=== PATIENT | male | born 1990 | race African-American/Black ===

== ENCOUNTER 2016-02-17 15:31 | Inpatient (IN) | payer OTHER ==
[~2016-02-17] VITALS: Ht 182.9 cm; Wt 84.3 kg
[2016-02-17] VITALS (7 sets, daily range): BP systolic 88–125; BP diastolic 53–82; PULSE 84–118; RESP 20–22; TEMP 97.6–98; O2SAT 92–100
[~2016-02-17 15:31] MED LIST: SODIUM BICARBONATE 8.4% INJ 50 MEQ/50 ML SYR IV ONE
[2016-02-17] MEDS ORDERED: LIDOCAINE 1%/EPINEPHrine 1:100,000 SOLN 20 ML VIAL ONE (15:39)
[2016-02-17] MEDS ORDERED: DIPHTH/TETANUS/ACEL PERTUSSIS (BOOSTER) 0.5 ML VIAL/PFS IM ONE (15:39)
[2016-02-17] MEDS ORDERED: ceFAZolin 2 GM PREMIX 50 ML ONE (15:39)
[2016-02-17] MEDS ORDERED: LACTATED RINGER'S 1000 ML INJ 1,000 ML IV SCH (15:58)
[2016-02-17 16:00] LABS: AUTOMATED NEUTROPHIL # 16.5 TH/MM3 (1.8-7.7); BASOPHIL % 0.1 % (0.0-2.0); EOSINOPHIL # 0.1 TH/MM3 (0-0.4); EOSINOPHIL % 0.6 % (0.0-4.0); HEMATOCRIT 36.2 % (39.0-51.0); HEMO FLAGS DIFF FINAL; LYMPH % 13.1 % (9.0-44.0); LYMPHOCYTE # 2.7 TH/MM3 (1.0-4.8); MEAN CELL VOLUME 87.6 FL (80.0-100.0); MEAN CORPUSCULAR HEMOGLOBIN 30.1 PG (27.0-34.0); MEAN CORPUSCULAR HGB CONC 34.4 % (32.0-36.0); MONO % 5.7 % (0.0-8.0); NEUT % 80.5 % (16.0-70.0); PLATELET COUNT 214 TH/MM3 (150-450); RED BLOOD COUNT 4.13 MIL/MM3 (4.50-5.90); RED CELL DISTRIBUTION WIDTH 13.3 % (11.6-17.2); WHITE BLOOD COUNT 20.5 TH/MM3 (4.0-11.0)
[2016-02-17] MEDS: PANTOPRAZOLE SODIUM 40 MG VIAL IV SCH (16:00)
[2016-02-17] MEDS ORDERED: NALOXONE HCL 0.4 MG/ML AMP IV PRN (16:00)
[2016-02-17] MEDS ORDERED: Post-op Orders (for Pharmacy) MISC XX ONE (16:00)
[2016-02-17] MEDS ORDERED: SODIUM CHLORIDE 0.9% FLUSH 5 ML FLUSH IVF PRN (16:00)
[2016-02-17 16:01] LABS: I-STAT POTASSIUM 3.8 MMOL/L (3.5-4.9)
[2016-02-17 16:10] LABS: APTT (PATIENT) 22.9 SEC (24.3-30.1); INTERNATIONAL NORMALIZED RATIO 1.1 RATIO
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
[2016-02-17] MEDS ORDERED: IOHEXOL 300 MG/ML 50 ML BTL (for RAD DIAG) IV ONE ×2 (16:25→16:47)
[2016-02-17] MEDS ORDERED: LORazepam 2 MG/ML VIAL ONE (16:47)
[2016-02-17] MEDS ORDERED: ETOMIDATE 20 MG/10 ML VIAL ONE (16:49)
[2016-02-17] MEDS ORDERED: MIDAZOLAM HCL 5 MG/ML VIAL (1 ML) ONE ×2 (16:50)
[2016-02-17] MEDS ORDERED: ROCURONIUM INJ 50 MG/5 ML VIAL ONE ×2 (16:51→19:08)
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
[2016-02-17] MEDS ORDERED: PROPOFOL 1000 MG/100 ML INJ 100 ML ONE (17:03)
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
--- NOTE | 2016-02-17 17:09 | RADRPT ---
EXAM DATE/TIME: 02/17/2016 15:26 [facility] COMPARISON: CHEST SINGLE AP, February 17, 2016, 15:26. INDICATIONS : Left sided chest tube placement. MEDICAL HISTORY : None. SURGICAL HISTORY : None. ENCOUNTER: Subsequent ACUITY: 1 day PAIN SCORE: Non-responsive. LOCATION: Left chest FINDINGS: A single portable frontal view of the chest shows a left thoracostomy tube with tip in the medial lef t apex. No pneumothorax or effusion. A small amount of subcutaneous air overlies the left lateral nely st. Right lung is clear. Heart normal size. Right clavicular fracture are again seen. CONCLUSION: Left thoracostomy tube without pneumothorax. Right clavicular fracture. Vincent He Jr., MD on February 17, 2016 at 17:06 Board Certified Radiologist. This report was verified electronically.
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
[2016-02-17] MEDS ORDERED: NOREPINEPHRINE-DEXTROSE DRIP 250 ML IV SCH (17:15)
[2016-02-17] MEDS ORDERED: PHENYLEPHRINE INJ 80 MG in DEXTROSE 5% IN WATE 500 ML INJ 492 ML IV SCH ×2 (17:15)
[2016-02-17] MEDS ORDERED: TERBUTALINE INJ 1 MG/ML AMP SQ PRN ×2 (17:15)
--- NOTE | 2016-02-17 17:17 | PD.PROCEDR ---
Procedure Note Procedure After the risks and benefits were discussed the following procedure was performed: INTUBATION: The patient was put in optimal position for the procedure. Rapid sequence intubation was initiated by me using 20 milligrams of etomidate IV and 10 milligrams of Versed IV and Rocuronium 50 mg IV. GlideScope used to avoid neck anterior flexion, #4 GlideScope blade with Grade 1 view, single attempt. The patient was intubated with a 8 cuffed endotracheal tube. Tube placement was confirmed by visualization of the tube and balloon passing through the cords , capnometry and subsequent chest x-ray. Breath sounds were equal and well aerated bilaterally postintubation. No breath sounds over stomach. Patient tolerated procedure well. Sean Christiansen MD Feb 17, 2016 17:16
--- NOTE | 2016-02-17 17:20 | PD.PROCEDR ---
Procedure Note Procedure R radial arterial line placement The patient was properly positioned. The area was exposed and cleansed with ChloraPrep, times two. Sterile drape was used to cover the area, with the site exposed, under sterile conditions including cap, face mask, and sterile gloves. On single attempt, the Angiocath was inserted into the radial artery and arterial flash was obtained. The catheter was advanced to position and needle was removed. Good arterial waveforms confirmed placement. The arterial line line was secured with dressing. COMPLICATIONS: No apparent complications ESTIMATED BLOOD LOSS: Less than 1 cc. Sean Christiansen MD Feb 17, 2016 17:20
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
[2016-02-17] MEDS ORDERED: POTASSIUM CL 40 MEQ/30 ML LIQ UDC PO/TUBE PRN ×2 (17:45)
[2016-02-17] MEDS ORDERED: MAGNESIUM SULFATE INJ 4 GM in SODIUM CHLORIDE 0.9% INJ 92 ML IV PRN (17:45)
[2016-02-17] MEDS ORDERED: SODIUM PHOSPHATE INJ 30 MMOL in SODIUM CHLOR 0.9% 250 ML INJ 240 ML IV PRN (17:45)
[2016-02-17] MEDS ORDERED: POTASSIUM CHLOR 40 MEQ PREMIX 100 ML IV PRN ×2 (17:45)
[2016-02-17] MEDS ORDERED: POTASSIUM PHOSPHATE MONOBASIC 500 MG TAB PO PRN (17:45)
[2016-02-17] MEDS ORDERED: MAGNESIUM SULFATE INJ 2 GM in SODIUM CHLORIDE 0.9% INJ 96 ML IV PRN (17:45)
[2016-02-17] MEDS ORDERED: POTASSIUM PHOSPHATE MONOBASIC 500 MG TAB PO/TUBE PRN (17:45)
[2016-02-17] MEDS ORDERED: POTASSIUM CHLOR 20 MEQ PREMIX 100 ML IV PRN ×2 (17:45)
[2016-02-17] MEDS ORDERED: MAGNESIUM OXIDE 400 MG TAB PO PRN (17:45)
[2016-02-17] MEDS ORDERED: POTASSIUM PHOSPHATE INJ 30 MMOL in SODIUM CHLOR 0.9% 250 ML INJ 250 ML IV PRN (17:45)
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
[2016-02-17] MEDS ORDERED: NOREPINEPHRINE 4 MG/4 ML AMP ONE (17:55)
[2016-02-17] MEDS ORDERED: PHENYLEPHRINE HCL 10 MG/ML VIAL ONE (18:15)
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
[2016-02-17 18:24] LABS: BLOOD GAS BASE EXCESS -4.9 mmol/L (-2-2); BLOOD GAS CARBOXYHEMOGLOBIN 0.8 % (0-4); BLOOD GAS HCO3 21 mmol/L (22-26); BLOOD GAS METHEMOGLOBIN 1.1 % (0-2); BLOOD GAS O2 HGB SATURATION 89 % (90-100); BLOOD GAS OXYGEN CONTENT 13.9 Vol % (12.0-20.0); BLOOD GAS PCO2 49 mmHg (38-42); BLOOD GAS PO2 72 mmHg (61-120); BLOOD GAS TOTAL HGB 11.1 G/DL (12.0-16.0); CRITICAL VALUE YES; OXYGEN DEVICE VENT; TEMP CORR TO 98.6
[2016-02-17 18:25] LABS: DRAW SITE ALINE; FIO2 80 %; VENT SETTINGS PRVC/22/600/10P/1IT
[2016-02-17] MEDS ORDERED: PIPERACIL-TAZO 4.5 GM PREMIX 100 ML IV SCH (18:45)
[2016-02-17 19:40] LABS: AUTOMATED NEUTROPHIL # 16.9 TH/MM3 (1.8-7.7); BASOPHIL % 0.2 % (0.0-2.0); HEMO FLAGS DIFF FINAL; LYMPH % 8.9 % (9.0-44.0); LYMPHOCYTE # 1.9 TH/MM3 (1.0-4.8); MEAN CELL VOLUME 87.8 FL (80.0-100.0); MEAN CORPUSCULAR HEMOGLOBIN 30.3 PG (27.0-34.0); MEAN CORPUSCULAR HGB CONC 34.5 % (32.0-36.0); MONO % 10.2 % (0.0-8.0); NEUT % 80.7 % (16.0-70.0); PLATELET COUNT 192 TH/MM3 (150-450); RED BLOOD COUNT 3.65 MIL/MM3 (4.50-5.90); RED CELL DISTRIBUTION WIDTH 13.2 % (11.6-17.2); WHITE BLOOD COUNT 20.9 TH/MM3 (4.0-11.0)
[2016-02-17 19:50] LABS: INTERNATIONAL NORMALIZED RATIO 1.1 RATIO; PROTHROMBIN TIME - PATIENT 12.2 SEC (9.8-11.6)
[2016-02-17 20:11] LABS: BICARBONATE 25.5 MEQ/L (21.0-32.0); CALCIUM-PROTEIN CORRECTED 8.2 MG/DL (8.5-10.1); MAGNESIUM 1.5 MG/DL (1.5-2.5); POTASSIUM 4.2 MEQ/L (3.5-5.1); TOTAL BILIRUBIN ADULT 1.3 MG/DL (0.2-1.0)
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
[2016-02-17] MEDS: PHENYLEPHRINE INJ 80 MG in SODIUM CHLORID 0.9% 500 ML INJ 492 ML IV SCH ×2 (20:46→23:38)
[2016-02-17] MEDS: NOREPINEPHRINE INJ 4 MG in SODIUM CHLOR 0.9% 250 ML INJ 246 ML IV SCH ×2 (20:47→23:52)
[2016-02-17] MEDS: SODIUM CHLORIDE 0.9% FLUSH 5 ML FLUSH IVF SCH (21:00)
[2016-02-17 21:08] LABS: BLOOD GAS BASE EXCESS -5.9 mmol/L (-2-2); BLOOD GAS HCO3 19 mmol/L (22-26); BLOOD GAS METHEMOGLOBIN 1.1 % (0-2); BLOOD GAS O2 HGB SATURATION 92 % (90-100); BLOOD GAS OXYGEN CONTENT 14.1 Vol % (12.0-20.0); BLOOD GAS PCO2 34 mmHg (38-42); BLOOD GAS PO2 76 mmHg (61-120); BLOOD GAS TOTAL HGB 10.8 G/DL (12.0-16.0); CRITICAL VALUE NO; OXYGEN DEVICE VENTILATOR; TEMP CORR TO 98.6
[2016-02-17 21:09] LABS: DRAW SITE ART LINE; FIO2 100 %; STAT YES; VENT SETTINGS PC/AC
[2016-02-17] MEDS: PROPOFOL 1000 MG/100 ML INJ 100 ML IV SCH (22:03)
[2016-02-17] MEDS: CHLORHEXIDINE 0.12% (ORAL KIT) 15 ML CUP MT SCH (22:03)
[2016-02-17] MEDS: RESP: ALBUTEROL 2.5 MG/IPRATROPIUM 0.5 MG NEB (SCH) NEB (23:02)
[2016-02-17] MEDS: PIPERACIL-TAZO 4.5 GM PREMIX 100 ML IV SCH (23:58)
[2016-02-18] VITALS (19 sets, daily range): BP systolic 112–145; BP diastolic 67–85; PULSE 87–107; RESP 18–22; TEMP 97.9–99.6; O2SAT 98–100
[2016-02-18 00:36] LABS: BLOOD GAS BASE EXCESS -9.1 mmol/L (-2-2); BLOOD GAS CARBOXYHEMOGLOBIN 0.9 % (0-4); BLOOD GAS HCO3 14 mmol/L (22-26); BLOOD GAS METHEMOGLOBIN 1.1 % (0-2); BLOOD GAS O2 HGB SATURATION 98 % (90-100); BLOOD GAS OXYGEN CONTENT 15.9 Vol % (12.0-20.0); BLOOD GAS PCO2 18 mmHg (38-42); BLOOD GAS PO2 408 mmHg (61-120); BLOOD GAS TOTAL HGB 10.8 G/DL (12.0-16.0); TEMP CORR TO 98.6
[2016-02-18 00:37] LABS: CRITICAL VALUE YES; DRAW SITE ALINE; FIO2 100 %; OXYGEN DEVICE VENTILATOR; ULNAR PULSE PRESENT
[2016-02-18 00:38] LABS: STAT NO
[2016-02-18] MEDS: PROPOFOL 1000 MG/100 ML INJ 100 ML IV SCH ×7 (01:06→17:46)
[2016-02-18 02:10] LABS: BLOOD GAS BASE EXCESS -10.1 mmol/L (-2-2); BLOOD GAS CARBOXYHEMOGLOBIN 0.8 % (0-4); BLOOD GAS HCO3 14 mmol/L (22-26); BLOOD GAS METHEMOGLOBIN 1.1 % (0-2); BLOOD GAS O2 HGB SATURATION 98 % (90-100); BLOOD GAS OXYGEN CONTENT 14.7 Vol % (12.0-20.0); BLOOD GAS PCO2 26 mmHg (38-42); BLOOD GAS PO2 310 mmHg (61-120); BLOOD GAS TOTAL HGB 10.1 G/DL (12.0-16.0); TEMP CORR TO 98.6
[2016-02-18 02:11] LABS: CRITICAL VALUE YES; DRAW SITE ART LINE; FIO2 60 %; OXYGEN DEVICE VENTILATOR; STAT NO; VENT SETTINGS PC/AC
[2016-02-18] MEDS ORDERED: SODIUM CHLORID 0.9% 500 ML INJ 500 ML IV ONE (03:00)
[2016-02-18] MEDS: SODIUM CHLOR 0.9% 1000 ML INJ 1,000 ML IV SCH ×4 (03:00→23:14)
[2016-02-18] MEDS: RESP: ALBUTEROL 2.5 MG/IPRATROPIUM 0.5 MG NEB (SCH) NEB ×4 (03:57→20:50)
[2016-02-18] MEDS: PIPERACIL-TAZO 4.5 GM PREMIX 100 ML IV SCH (06:07)
[2016-02-18 06:19] LABS: AUTOMATED NEUTROPHIL # 14.1 TH/MM3 (1.8-7.7); BASOPHIL % 0.2 % (0.0-2.0); EOSINOPHIL % 0.1 % (0.0-4.0); HEMATOCRIT 30.8 % (39.0-51.0); LYMPH % 13.6 % (9.0-44.0); LYMPHOCYTE # 2.5 TH/MM3 (1.0-4.8); MEAN CELL VOLUME 86.7 FL (80.0-100.0); MEAN CORPUSCULAR HGB CONC 34.5 % (32.0-36.0); MONO % 8.7 % (0.0-8.0); NEUT % 77.4 % (16.0-70.0); PLATELET COUNT 191 TH/MM3 (150-450); RED BLOOD COUNT 3.55 MIL/MM3 (4.50-5.90); RED CELL DISTRIBUTION WIDTH 13.5 % (11.6-17.2); WHITE BLOOD COUNT 18.3 TH/MM3 (4.0-11.0)
[2016-02-18 06:25] LABS: HEMO FLAGS AUTO DIFF
[2016-02-18] MEDS ORDERED: SERO25TA PO (07:19)
[2016-02-18 07:41] LABS: BANDS 25 % (0-6); EOSINOPHILS 1 % (0-4); NEUTROPHIL # MANUAL DIFF 15.4 TH/MM3 (1.8-7.7); PLATELET ESTIMATE SMEAR NORMAL (NORMAL); PLATELET MORPHOLOGY NORMAL (NORMAL); POLYS (SEG NEUTROPHILS) 59 % (16-70); SCAN/DIFF FINAL DIFF MANUAL; WBC DIFF SAMPLE 100
[2016-02-18 07:49] LABS: BICARBONATE 19.4 MEQ/L (21.0-32.0); CALCIUM-PROTEIN CORRECTED 7.7 MG/DL (8.5-10.1); TOTAL BILIRUBIN ADULT 1.4 MG/DL (0.2-1.0)
[2016-02-18] MEDS ORDERED: SODIUM BICARBONATE 8.4% INJ 50 MEQ/50 ML SYR IV PUSH ONE (08:45)
[2016-02-18] MEDS: NOREPINEPHRINE INJ 4 MG in SODIUM CHLOR 0.9% 250 ML INJ 246 ML IV SCH ×3 (09:06→20:21)
[2016-02-18] MEDS: MAGNESIUM HYDROXIDE SUSP 30 ML CUP PO SCH (09:07)
[2016-02-18] MEDS: DOCUSATE SODIUM 100 MG CAP PO SCH ×2 (09:07→20:21)
[2016-02-18] MEDS: CHLORHEXIDINE 0.12% (ORAL KIT) 15 ML CUP MT SCH ×2 (09:11→20:22)
[2016-02-18] MEDS: SODIUM CHLORIDE 0.9% FLUSH 5 ML FLUSH IVF SCH ×2 (09:11→20:22)
[2016-02-18] MEDS ORDERED: INSULIN HUMAN REGULAR 1,000 UNITS/10 ML VIAL IVP ONE (11:00)
[2016-02-18] MEDS ORDERED: DEXTROSE 50% IN WATER 50 ML SYRINGE IV ONE (11:00)
[2016-02-18] MEDS: PIPERACIL-TAZO 2.25 GM PREMIX 50 ML IV SCH ×3 (11:48→23:11)
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
[2016-02-18] MEDS: PANTOPRAZOLE SODIUM 40 MG VIAL IV SCH (15:04)
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
[2016-02-18 16:25] LABS: BLOOD GAS BASE EXCESS -9.5 mmol/L (-2-2); BLOOD GAS CARBOXYHEMOGLOBIN 0.8 % (0-4); BLOOD GAS HCO3 16 mmol/L (22-26); BLOOD GAS METHEMOGLOBIN 1.1 % (0-2); BLOOD GAS O2 HGB SATURATION 95 % (90-100); BLOOD GAS OXYGEN CONTENT 13.2 Vol % (12.0-20.0); BLOOD GAS PCO2 39 mmHg (38-42); BLOOD GAS PO2 98 mmHg (61-120); BLOOD GAS TOTAL HGB 9.8 G/DL (12.0-16.0); TEMP CORR TO 98.6
[2016-02-18 16:26] LABS: CRITICAL VALUE YES; DRAW SITE ART LINE; FIO2 40 %; NUMBER OF ARTERIAL PUNCTURES 0; OXYGEN DEVICE VENTILATOR; STAT NO; ULNAR PULSE PRESENT; VENT SETTINGS PC/AC
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
[2016-02-18] MEDS: fentaNYL DRIP 250 ML IV SCH (17:46)
[2016-02-18] MEDS: PHENYLEPHRINE INJ 80 MG in SODIUM CHLORID 0.9% 500 ML INJ 492 ML IV SCH (19:29)
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
[2016-02-18 20:29] LABS: BICARBONATE 24.4 MEQ/L (21.0-32.0); POTASSIUM 4.5 MEQ/L (3.5-5.1)
[2016-02-18 20:42] LABS: CALCIUM-PROTEIN CORRECTED 8.2 MG/DL (8.5-10.1)
[2016-02-19] VITALS (17 sets, daily range): BP systolic 120–229; BP diastolic 51–66; PULSE 9–110; RESP 18; TEMP 97.8–98.6; O2SAT 94–100
[2016-02-19] MEDS: RESP: ALBUTEROL 2.5 MG/IPRATROPIUM 0.5 MG NEB (SCH) NEB ×4 (03:45→20:57)
--- NOTE | 2016-02-19 05:23 | RADRPT ---
EXAM DATE/TIME: 02/19/2016 04:15 [facility] COMPARISON: No previous studies available for comparison. INDICATIONS : Short of breath. MEDICAL HISTORY : None. SURGICAL HISTORY : Left side chest tube. ENCOUNTER: Subsequent ACUITY: 2 days PAIN SCORE: Non-responsive. LOCATION: Bilateral chest FINDINGS: Hazy opacities of both lungs, worsening on the right and improved on the left. At least small, bilate ral pleural effusions are likely. There is a left chest tube. I don't see a pneumothorax on either si de. Mild cardiomegaly is stable. Endotracheal tube tip is at the level of the thoracic inlet. Nasogastric tube has its tip in the dist al stomach. There is a left subclavian central venous catheter with tip in the superior vena cava. CONCLUSION: 1. Bibasilar consolidation slightly improved on the left, slightly worse on the right. Small bilatera l pleural effusions developing. 2. Lines and tubes unchanged, including left chest tube. No pneumothorax seen. Kuldip Sibley MD on February 19, 2016 at 5:20 Board Certified Radiologist. This report was verified electronically.
[2016-02-19 05:39] LABS: BLOOD GAS BASE EXCESS -3.8 mmol/L (-2-2); BLOOD GAS CARBOXYHEMOGLOBIN 1.2 % (0-4); BLOOD GAS HCO3 22 mmol/L (22-26); BLOOD GAS METHEMOGLOBIN 0.8 % (0-2); BLOOD GAS O2 HGB SATURATION 96 % (90-100); BLOOD GAS OXYGEN CONTENT 11.7 Vol % (12.0-20.0); BLOOD GAS PCO2 51 mmHg (38-42); BLOOD GAS PO2 115 mmHg (61-120); BLOOD GAS TOTAL HGB 8.5 G/DL (12.0-16.0); CRITICAL VALUE YES; OXYGEN DEVICE VENTILATOR; TEMP CORR TO 98.6
[2016-02-19 05:40] LABS: DRAW SITE ART LINE; FIO2 50 %; STAT NO; VENT SETTINGS PC/AC 18/IP18/
[2016-02-19] MEDS: PIPERACIL-TAZO 2.25 GM PREMIX 50 ML IV SCH ×4 (05:55→23:10)
[2016-02-19] MEDS: PROPOFOL 1000 MG/100 ML INJ 100 ML IV SCH ×4 (05:56→20:28)
[2016-02-19] MEDS: SODIUM CHLOR 0.9% 1000 ML INJ 1,000 ML IV SCH ×2 (05:56→14:45)
[2016-02-19 06:14] LABS: AUTOMATED NEUTROPHIL # 11.9 TH/MM3 (1.8-7.7); BASOPHIL % 0.2 % (0.0-2.0); EOSINOPHIL # 0.1 TH/MM3 (0-0.4); EOSINOPHIL % 0.6 % (0.0-4.0); HEMATOCRIT 24.8 % (39.0-51.0); HEMO FLAGS DIFF FINAL; LYMPHOCYTE # 0.9 TH/MM3 (1.0-4.8); MEAN CELL VOLUME 87.9 FL (80.0-100.0); MEAN CORPUSCULAR HEMOGLOBIN 30.5 PG (27.0-34.0); MEAN CORPUSCULAR HGB CONC 34.7 % (32.0-36.0); MONO % 11.4 % (0.0-8.0); NEUT % 81.8 % (16.0-70.0); PLATELET COUNT 161 TH/MM3 (150-450); RED BLOOD COUNT 2.82 MIL/MM3 (4.50-5.90); RED CELL DISTRIBUTION WIDTH 14.1 % (11.6-17.2); WHITE BLOOD COUNT 14.5 TH/MM3 (4.0-11.0)
[2016-02-19] MEDS: NOREPINEPHRINE INJ 4 MG in SODIUM CHLOR 0.9% 250 ML INJ 246 ML IV SCH ×3 (06:25→20:40)
[2016-02-19] MEDS: fentaNYL DRIP 250 ML IV SCH ×2 (06:33→17:03)
[2016-02-19 07:01] LABS: BICARBONATE 24.8 MEQ/L (21.0-32.0); CALCIUM-PROTEIN CORRECTED 8.3 MG/DL (8.5-10.1); MAGNESIUM 1.7 MG/DL (1.5-2.5); POTASSIUM 4.4 MEQ/L (3.5-5.1); TOTAL BILIRUBIN ADULT 1.2 MG/DL (0.2-1.0)
[2016-02-19 07:55] LABS: STAT YES
[2016-02-19 07:55] LABS: BLOOD GAS BASE EXCESS -4.6 mmol/L (-2-2); BLOOD GAS CARBOXYHEMOGLOBIN 1.3 % (0-4); BLOOD GAS HCO3 21 mmol/L (22-26); BLOOD GAS METHEMOGLOBIN 1.5 % (0-2); BLOOD GAS O2 HGB SATURATION 94 % (90-100); BLOOD GAS OXYGEN CONTENT 11.2 Vol % (12.0-20.0); BLOOD GAS PCO2 45 mmHg (38-42); BLOOD GAS PO2 98 mmHg (61-120); BLOOD GAS TOTAL HGB 8.3 G/DL (12.0-16.0); CRITICAL VALUE YES; OXYGEN DEVICE VENTILATOR; TEMP CORR TO 98.6
[2016-02-19 07:56] LABS: DRAW SITE ART LINE; FIO2 40 %; NUMBER OF ARTERIAL PUNCTURES 0; STAT NO; ULNAR PULSE PRESENT; VENT SETTINGS PC/AC
[2016-02-19] MEDS: CHLORHEXIDINE 0.12% (ORAL KIT) 15 ML CUP MT SCH ×2 (08:00→20:20)
[2016-02-19] MEDS: DOCUSATE SODIUM 100 MG CAP PO SCH ×2 (09:15→20:28)
[2016-02-19] MEDS: MAGNESIUM HYDROXIDE SUSP 30 ML CUP PO SCH (09:15)
[2016-02-19] MEDS: SODIUM CHLORIDE 0.9% FLUSH 5 ML FLUSH IVF SCH ×2 (09:16→20:55)
[2016-02-19] MEDS ORDERED: ATROPINE SULFATE 1 MG/10 ML SYRINGE ONE (09:46)
[2016-02-19] MEDS ORDERED: EPINEPHrine HCL (1:10,000) 1 MG/10 ML SYRINGE ONE (09:46)
[2016-02-19] MEDS ORDERED: LIDOCAINE HCL 2% 100 MG/5 ML SYRINGE ONE (09:46)
--- NOTE | 2016-02-19 10:06 | EC ---
Study Study Date:02/18/2016 STUDY CONCLUSIONS SUMMARY - Left ventricle: The cavity size was normal. Systolic function was normal. The estimated ejection fraction was in the range of 55% to 60%. Wall motion was normal; there were no regional wall motion abnormalities. - Aortic valve: Appears bicuspid aortic valve. Raphae of the right coronary cusp and non-coronary cusp. Valve area: 2.64cm^2(VTI). Valve area: 2.58cm^2 (Vmax). If LV function is below 40, please consider prescribing an ACEI or ARB or document rationale for non-use. PROCEDURE DATA STUDY STATUS: Elective. Procedure: Transthoracic echocardiography. Image quality was good. Scanning was performed from the parasternal, apical, and subcostal acoustic windows. Study completion: The patient tolerated the procedure well. Transthoracic echocardiography. M-mode, complete 2D, complete spectral Doppler, and color Doppler. Weight: Weight: 251.5lb. Patient status: Inpatient. CARDIAC ANATOMY LEFT VENTRICLE: The cavity size was normal. Systolic function was normal. The estimated ejection fraction was in the range of 55% to 60%. Wall motion was normal; there were no regional wall motion abnormalities. AORTIC VALVE: Appears bicuspid aortic valve. Raphae of the right coronary cusp and non-coronary cusp. Doppler: There was no stenosis. No significant regurgitation. Valve area: 2.64cm^2(VTI). Valve area: 2.58cm^2 (Vmax). Mean gradient: 4mm Hg (S). MITRAL VALVE: The valve appears to be grossly normal. Doppler: There was no evidence for stenosis. Trace regurgitation. Peak gradient: 2mm Hg (D). LEFT ATRIUM: The atrium was normal in size. RIGHT VENTRICLE: The cavity size was normal. Systolic function was normal. PULMONIC VALVE: The valve appears to be grossly normal. Doppler: There was no evidence for stenosis. Trace regurgitation. TRICUSPID VALVE: The valve appears to be grossly normal. Doppler: There was no evidence for stenosis. Trace regurgitation. PERICARDIUM: There was no pericardial effusion. Patient weight: 251.5lb _Ejection fraction:_ 65-75% _Fractional shortening:_ 32% up to 5Kg 5-11.5Kg 11.6-22.9Kg 23-45Kg 45-57Kg Aortic Root 7-13 <17 13-22 17-27 17-27 LA diam 6-13 <23 24-38 33-47 37-40 RVID 10-17 7-15 7-15 7-18 8-17 LVIDd 12-22 <32 24-38 33-47 37-40 LVPW 2-4 3-6 5-7 6-8 7-8 IVS 2-4 3-6 5-7 6-8 7-8 BASIC MEASUREMENTS ADULT NORMAL Left ventricle LV internal dimension, ED, chordal level, 46.8 mm 43-52 PLAX LV internal dimension, ES, chordal level, 31 mm 23-38 PLAX Fractional shortening, chordal level, PLAX 34 % >29 LV posterior wall thickness, ED 10.5 mm IVS/LVPW ratio, ED 1 <1.3 Ventricular septum Septal thickness, ED 10.5 mm Aortic valve Leaflet separation *29 mm 15-26 Aorta Root diameter, ED 32 mm Left atrium Anterior-posterior dimension 25 mm BASIC MEASUREMENTS ADULT NORMAL Aortic valve Leaflet separation *29 mm 15-26 DOPPLER MEASUREMENTS ADULT NORMAL Aortic valve Peak velocity, S 128 cm/s Mean velocity, S 92.7 cm/s VTI, S 21.1 cm Mean gradient, S 4 mm Hg Valve area, VTI 2.64 cm^2 Valve area, Vmax 2.58 cm^2 Mitral valve Peak E-wave velocity 78.5 cm/s Peak A-wave velocity 44.9 cm/s Peak gradient, D 2 mm Hg Peak E/A ratio 1.7 Tricuspid valve Regurgitant peak velocity 221 cm/s Peak RV-RA gradient, S 20 mm Hg Maximal regurgitant velocity 221 cm/s Pulmonic valve Peak velocity, S 65.2 cm/s LEGEND: Mean values are shown as u=mean value. Asterisk (*) may values outside specified normal range. Prepared and signed by Ernesto Frazier [id number]
[2016-02-19] MEDS ORDERED: IOHEXOL 350 MG/ML 10 ML VIAL (for RAD DIAG) IV ONE (10:28)
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
[2016-02-19] MEDS: MAGNESIUM SULFATE 1 GM PREMIX 100 ML IV SCH ×2 (11:07→11:08)
[2016-02-19 11:11] LABS: APTT (PATIENT) 36.6 SEC (24.3-30.1); INTERNATIONAL NORMALIZED RATIO 1.2 RATIO; PROTHROMBIN TIME - PATIENT 12.9 SEC (9.8-11.6)
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
[2016-02-19] MEDS: PANTOPRAZOLE SODIUM 40 MG VIAL IV SCH (14:45)
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
[2016-02-19] MEDS: PHENYLEPHRINE INJ 80 MG in SODIUM CHLORID 0.9% 500 ML INJ 492 ML IV SCH (20:41)
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
[2016-02-20] VITALS (19 sets, daily range): BP systolic 126–131; BP diastolic 56–66; PULSE 90–110; RESP 18; TEMP 97.8–98.7; O2SAT 91–100
[2016-02-20] MEDS: PROPOFOL 1000 MG/100 ML INJ 100 ML IV SCH ×4 (00:35→22:13)
[2016-02-20] MEDS: RESP: ALBUTEROL 2.5 MG/IPRATROPIUM 0.5 MG NEB (SCH) NEB ×4 (03:12→21:18)
[2016-02-20] MEDS: fentaNYL DRIP 250 ML IV SCH ×2 (03:49→22:13)
[2016-02-20] MEDS: SODIUM CHLOR 0.9% 1000 ML INJ 1,000 ML IV SCH ×2 (03:50→13:02)
[2016-02-20] MEDS: NOREPINEPHRINE INJ 4 MG in SODIUM CHLOR 0.9% 250 ML INJ 246 ML IV SCH (03:50)
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
[2016-02-20] MEDS: PIPERACIL-TAZO 2.25 GM PREMIX 50 ML IV SCH ×3 (06:00→17:30)
[2016-02-20 06:36] LABS: HEMATOCRIT 22.2 % (39.0-51.0); MEAN CELL VOLUME 87.1 FL (80.0-100.0); MEAN CORPUSCULAR HEMOGLOBIN 30.6 PG (27.0-34.0); MEAN CORPUSCULAR HGB CONC 35.1 % (32.0-36.0); PLATELET COUNT 161 TH/MM3 (150-450); RED BLOOD COUNT 2.55 MIL/MM3 (4.50-5.90); RED CELL DISTRIBUTION WIDTH 13.8 % (11.6-17.2); REVIEW FLAG FINAL; WHITE BLOOD COUNT 12.9 TH/MM3 (4.0-11.0)
[2016-02-20 06:36] LABS: BLOOD GAS CARBOXYHEMOGLOBIN 1.6 % (0-4); BLOOD GAS HCO3 24 mmol/L (22-26); BLOOD GAS METHEMOGLOBIN 0.9 % (0-2); BLOOD GAS O2 HGB SATURATION 94 % (90-100); BLOOD GAS OXYGEN CONTENT 10.5 Vol % (12.0-20.0); BLOOD GAS PCO2 44 mmHg (38-42); BLOOD GAS PO2 86 mmHg (61-120); BLOOD GAS TOTAL HGB 7.8 G/DL (12.0-16.0); TEMP CORR TO 98.6
[2016-02-20 06:37] LABS: CRITICAL VALUE NO; DRAW SITE ART LINE; FIO2 40 %; OXYGEN DEVICE VENTILATOR
[2016-02-20 06:38] LABS: STAT NO
[2016-02-20 07:00] LABS: BICARBONATE 26.3 MEQ/L (21.0-32.0); MAGNESIUM 2.4 MG/DL (1.5-2.5)
[2016-02-20] MEDS ORDERED: LACTULOSE SYRUP 20 GM/30 ML CUP PO ONE (07:45)
[2016-02-20] MEDS: MAGNESIUM HYDROXIDE SUSP 30 ML CUP PO SCH (08:42)
[2016-02-20] MEDS: SODIUM CHLORIDE 0.9% FLUSH 5 ML FLUSH IVF SCH ×2 (08:42→21:00)
[2016-02-20] MEDS: CHLORHEXIDINE 0.12% (ORAL KIT) 15 ML CUP MT SCH ×2 (08:42→20:00)
[2016-02-20] MEDS: DOCUSATE SODIUM 100 MG CAP PO SCH ×2 (08:42→22:13)
[2016-02-20] MEDS ORDERED: SODIUM CHLOR 0.9% 250 ML INJ 250 ML IV ONE (09:00)
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
[2016-02-20] MEDS ORDERED: HEPARIN SODIUM - SQ 10,000 UNITS/ML VIAL ONE ×2 (11:02→11:16)
[2016-02-20] MEDS ORDERED: THROMBIN (TOPICAL) 5,000 UNIT VIAL ONE (11:03)
[2016-02-20] MEDS: GELFOAM SIZE 100 ONE ×2 (11:03→15:17)
[2016-02-20] MEDS: GENTAMICIN SULFATE 80 MG/2 ML VIAL ONE ×2 (11:03→15:16)
[2016-02-20] MEDS ORDERED: ceFAZolin INJ 1,000 MG VIAL ONE (11:03)
[2016-02-20] MEDS: LIDOCAINE 1%/EPINEPHrine 1:100,000 SOLN 20 ML VIAL ONE ×2 (11:04→15:17)
[2016-02-20] MEDS ORDERED: PROPOFOL 200 MG/20 ML AMP IV ONE (12:00)
[2016-02-20] MEDS ORDERED: NORMOSOL R INJ 2,000 ML IV ONE (12:00)
[2016-02-20] MEDS ORDERED: LACTATED RINGER'S 1000 ML INJ 1,000 ML IV ONE (12:00)
[2016-02-20] MEDS ORDERED: SUGAMMADEX SODIUM 200 MG/2 ML VIAL IV PUSH ONE ×2 (12:00)
[2016-02-20] MEDS ORDERED: ONDANSETRON HCL 4 MG/2 ML VIAL IV PUSH ONE (12:00)
[2016-02-20] MEDS ORDERED: HYDROmorphone HCL PF 2 MG/ML VIAL ONE (12:10)
[2016-02-20] MEDS ORDERED: ACETAMINOPHEN 1000 MG/100 ML VIAL IV ONE (12:11)
[2016-02-20] MEDS ORDERED: fentaNYL CITRATE 250 MCG/5 ML AMP ONE ×2 (12:11→21:07)
[2016-02-20] MEDS ORDERED: ceFAZolin 2 GM PREMIX 50 ML ONE (14:55)
[2016-02-20] MEDS ORDERED: GENTAMICIN SULFATE 80 MG/2 ML VIAL ONE (15:03)
[2016-02-20 15:20] LABS: HEMATOCRIT 23.2 % (39.0-51.0); REVIEW FLAG FINAL
[2016-02-20] MEDS ORDERED: SUFentanil INJ 250 MCG/5 ML AMP ONE ×2 (15:28→19:23)
[2016-02-20] MEDS: PANTOPRAZOLE SODIUM 40 MG VIAL IV SCH (15:57)
[2016-02-20] MEDS ORDERED: LIDOCAINE 1%/EPINEPHrine 1:100,000 SOLN 20 ML VIAL ONE ×4 (16:31→18:53)
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
[2016-02-20 17:54] LABS: HEMATOCRIT 24.7 % (39.0-51.0)
[2016-02-20 17:58] LABS: REVIEW FLAG FINAL
--- NOTE | 2016-02-20 21:15 | RADRPT ---
EXAM DATE/TIME: 02/20/2016 15:12 [facility] COMPARISON: CT THORACIC SPINE W/O CONTRAST, February 17, 2016, 16:03. INDICATIONS : Thoracic spine T2-6 fusion. MEDICAL HISTORY : None. SURGICAL HISTORY : None. ENCOUNTER: Initial ACUITY: 1 day PAIN SCORE: Non-responsive. LOCATION: Thoracic spine T2-6 FINDINGS: Coned-down views of the upper and mid thoracic spine were obtained in the AP and lateral projection a nd demonstrate that the patient is status post multi-level fusion with bilateral pedicle screws and p osterior fixation rods. Pedicle screws appear located at the T2, T3, T5 and T6 levels. The known frac ture at T4 is not well visualized. CONCLUSION: Status post multilevel fusion. Zen Maldonado MD on February 20, 2016 at 21:11 Board Certified Radiologist. This report was verified electronically.
--- NOTE | 2016-02-20 22:11 | PD.OP ---
Operative Report Date of Surgery: Feb 20, 2016 Preoperative Diagnosis: (1) Multiple fractures of thoracic spine (2) Paraplegia at T4 level T3-4-5 fractures Spinal cord injury with paraplegia Postoperative Diagnosis: (1) Multiple fractures of thoracic spine (2) Paraplegia at T4 level T3-4-5 fractures Spinal cord injury with paraplegia Procedure: 1. T2-T6 posterior spinal instrumentation with percutaneous pedicle screw fixation (charla Chang and Viktoriya) 2. T2-6 posterior lateral fusion with local autograft bone (Dr. Chang) 3. Bilateral T3-4 decompressive laminectomy-microtechnique () Anesthesia: Gen. Surgeon: Larry Sadler M.D. Station Usher(s): Michelle Lr Operation and Findings: Findings: Fracture of T4 facet and pedicle without definite canal compromise. No epidural hematoma encountered at time of laminectomy. Procedure in detail The patient was brought into the operating room already intubated with a Palmer catheter, NI hose and sequential compression devices in place Gen. endotracheal anesthesia was induced. Appropriate time-out procedure was performed with all personnel present and in agreement Cervical collar was in place. Leads for intraoperative neuro monitoring were placed and a baseline study obtained With the undersigned maintaining control of the head and neck, the patient was log rolled into prone position on the concentric Ronnie table and all extremities appropriately padded. Upon initial positioning, there was noted to be diminished ventilation but good maintenance of oxygen saturation. The check of the endotracheal tube per anesthesia revealed a leak in the cuff which required turning the patient back into supine position for reintubation, after which he was repositioned prone. The C-arm was used to confirm proper positioning of the spine. The thoracic region was prepped and draped in a sterile fashion The proper spine levels for the procedure were determined using the AP and lateral C-arm imaging The incisions were made on each side lateral to the midline at approximately 4 cm lateral to the midline on each side, a distance determined by the preoperative imaging studies as well as intraoperative AP and lateral C-arm monitoring. At the T2, T3, T5, and T6 levels bilaterally and sequentially, the Jamshidi needles were placed through the pedicles into the vertebral body utilizing the AP lateral C-arm imaging . The Jamshidi needle placement was checked with intraoperative concentric C-arm imaging and felt to be satisfactory. At each level sequentially, the guidewires were placed through the Jamshidi cannula and the needle removed. The dilators were then used to protect adjacent tissue while the cannulated tap was utilized to prepare the pedicle screw opening. Following placement of the pedicle screws, the lateral lamina and facet and transverse process at the T2 through T6 level on each side was decorticated with the TPS drill with bone shavings left in place for graft for the posterior lateral fusion. The Spine Wave Sniper pedicle screws on the MIS extension towers were placed directly through the paraspinous muscle incisions on each side at each level and advanced using AP and lateral C-arm imaging for monitoring. The appropriate size Spine Wave MIS yuniel was placed along the bilateral T2-T6 pedicle screws on each side and secured with the locking caps and the torque wrench and antitorque device. The entire construct was assessed with AP and lateral C-arm imaging and felt to be satisfactory. The operative site was well irrigated with antibiotic irrigation. Next, the midline incision was made at the T3-4 level and carried sharply down to the spinous processes. The Mercado elevator was used for subperiosteal elevation of paraspinous musculature and fascia away from the lamina and spinous process of T3 and T4 on each side and a deep self-retaining retractor was placed. The lamina spinous process appeared relatively stable. The interspinous ligament was totally torn The TPS drill with the 5 mm bone bur was used to remove the inferior half of the bilateral T3 and superior half of the bilateral T4 lamina and a moderate amount of the medial facet on each side sufficiently gain access to the lateral recess without significant retraction of the thecal sac. The ligamentum flavum was partially torn. This was further removed along with the lamina and facet with the 3 mm Kerrison rongeur. There did not appear to be any significant compression of bone fragments on the thecal sac. No epidural hematoma was encountered. The long blunt nerve hook and [place] dissectors were used to carefully palpate ventral to the thecal sac and no significant disc herniation or fracture or other source of compression was encountered. No cerebrospinal fluid leakage was encountered. The spinal canal appeared well decompressed at the time of closure. The closure was performed with 0 Vicryl interrupted for the deep and superficial fascia with 3-0 Vicryl interrupted subcutaneous closure and denisha for the skin closure A dressing of sterile Mastisol, Steri-Strips, and Primapore was placed Patient was taken to the intensive surgical care unit in stable condition. All counts were correct at the end the case Estimated blood loss was 250 cc No specimen was sent to pathology Intraoperative neuro monitoring remained stable during the procedure I Larry Chang MD Feb 20, 2016 22:11
[2016-02-21] VITALS (25 sets, daily range): BP systolic 120–145; BP diastolic 48–69; PULSE 85–110; RESP 16–18; TEMP 97.7–100.1; O2SAT 84–98
[2016-02-21] MEDS: PIPERACIL-TAZO 2.25 GM PREMIX 50 ML IV SCH ×6 (01:10→23:07)
[2016-02-21] MEDS: PROPOFOL 1000 MG/100 ML INJ 100 ML IV SCH ×5 (01:37→20:11)
[2016-02-21] MEDS: RESP: ALBUTEROL 2.5 MG/IPRATROPIUM 0.5 MG NEB (SCH) NEB ×4 (03:02→20:39)
[2016-02-21 03:40] LABS: HEMATOCRIT 23.1 % (39.0-51.0); MEAN CELL VOLUME 86.6 FL (80.0-100.0); MEAN CORPUSCULAR HEMOGLOBIN 30.2 PG (27.0-34.0); MEAN CORPUSCULAR HGB CONC 34.8 % (32.0-36.0); PLATELET COUNT 165 TH/MM3 (150-450); RED BLOOD COUNT 2.67 MIL/MM3 (4.50-5.90); WHITE BLOOD COUNT 12.5 TH/MM3 (4.0-11.0)
[2016-02-21 03:41] LABS: REVIEW FLAG FINAL
[2016-02-21 03:53] LABS: BICARBONATE 28.9 MEQ/L (21.0-32.0); MAGNESIUM 2.6 MG/DL (1.5-2.5); POTASSIUM 3.7 MEQ/L (3.5-5.1)
[2016-02-21] MEDS: SODIUM CHLOR 0.9% 1000 ML INJ 1,000 ML IV SCH ×2 (05:12→16:40)
[2016-02-21 05:20] LABS: BLOOD GAS BASE EXCESS 1.7 mmol/L (-2-2); BLOOD GAS CARBOXYHEMOGLOBIN 1.8 % (0-4); BLOOD GAS HCO3 26 mmol/L (22-26); BLOOD GAS METHEMOGLOBIN 0.8 % (0-2); BLOOD GAS O2 HGB SATURATION 94 % (90-100); BLOOD GAS OXYGEN CONTENT 11.3 Vol % (12.0-20.0); BLOOD GAS PCO2 46 mmHg (38-42); BLOOD GAS PO2 80 mmHg (61-120); BLOOD GAS TOTAL HGB 8.5 G/DL (12.0-16.0); TEMP CORR TO 98.6
[2016-02-21 05:21] LABS: CRITICAL VALUE NO; DRAW SITE ALINE; FIO2 45 %; OXYGEN DEVICE VENTILATOR; STAT NO; ULNAR PULSE PRESENT; VENT SETTINGS PRVC16/600/0.9/+5
--- NOTE | 2016-02-21 06:26 | RADRPT ---
EXAM DATE/TIME: 02/21/2016 05:14 [facility] COMPARISON: CHEST SINGLE AP, February 20, 2016, 3:24. INDICATIONS : Follow-up trauma to chest MEDICAL HISTORY : None. SURGICAL HISTORY : None. ENCOUNTER: Subsequent ACUITY: 4 - 6 days PAIN SCORE: Non-responsive. LOCATION: Bilateral chest FINDINGS: Since a prior chest x-ray, patient has undergone fusion with posterior instrumentation of the upper t horacic spine. I don't see a pneumothorax. Basilar predominant consolidation and at least small bilateral pleural effusions are again noted, not significantly changed. Endotracheal tube tip is about 4 cm above the luis a. There is a nasogastric tube coursing into the s tomach. There is a left subclavian central venous catheter with tip in the superior vena cava. Left c hest tube remains in place. CONCLUSION: 1. No significant change bibasilar consolidation and small effusions. 2. Interim thoracic spine surgery. Left chest tube remains in place. No pneumothorax seen on either s tavares. Kuldip Sibley MD on February 21, 2016 at 6:21 Board Certified Radiologist. This report was verified electronically.
[2016-02-21] MEDS ORDERED: BISACODYL 10 MG SUPP RECTAL ONE (07:45)
[2016-02-21] MEDS: SODIUM CHLORIDE 0.9% FLUSH 5 ML FLUSH IVF SCH ×2 (08:32→21:00)
[2016-02-21] MEDS: fentaNYL DRIP 250 ML IV SCH ×2 (08:32→23:06)
[2016-02-21] MEDS: CHLORHEXIDINE 0.12% (ORAL KIT) 15 ML CUP MT SCH ×2 (08:32→20:11)
[2016-02-21] MEDS: DOCUSATE SODIUM 100 MG CAP PO SCH ×2 (08:32→20:12)
[2016-02-21] MEDS: MAGNESIUM HYDROXIDE SUSP 30 ML CUP PO SCH (08:32)
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
[2016-02-21] MEDS ORDERED: FUROSEMIDE 20 MG/2 ML VIAL IV PUSH ONE (09:30)
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
[2016-02-21] MEDS: PANTOPRAZOLE SODIUM 40 MG VIAL IV SCH (16:40)
[2016-02-21 17:13] LABS: BLOOD GAS BASE EXCESS 2.3 mmol/L (-2-2); BLOOD GAS CARBOXYHEMOGLOBIN 1.5 % (0-4); BLOOD GAS HCO3 27 mmol/L (22-26); BLOOD GAS METHEMOGLOBIN 0.9 % (0-2); BLOOD GAS O2 HGB SATURATION 94 % (90-100); BLOOD GAS OXYGEN CONTENT 10.4 Vol % (12.0-20.0); BLOOD GAS PCO2 50 mmHg (38-42); BLOOD GAS PO2 84 mmHg (61-120); BLOOD GAS TOTAL HGB 7.8 G/DL (12.0-16.0); TEMP CORR TO 98.6
[2016-02-21 17:14] LABS: CRITICAL VALUE NO; FIO2 70 %; OXYGEN DEVICE VENTILATOR; VENT SETTINGS PRVC/AC
[2016-02-21 17:15] LABS: DRAW SITE ART LINE
[2016-02-22] VITALS (18 sets, daily range): BP systolic 121–149; BP diastolic 48–63; PULSE 84–102; RESP 16–20; TEMP 99–101.9; O2SAT 93–99
[2016-02-22] MEDS: RESP: ALBUTEROL 2.5 MG/IPRATROPIUM 0.5 MG NEB (PRN) NEB ×3 (03:34→15:36)
[2016-02-22] MEDS: PROPOFOL 1000 MG/100 ML INJ 100 ML IV SCH ×4 (04:19→18:06)
[2016-02-22] MEDS: PIPERACIL-TAZO 2.25 GM PREMIX 50 ML IV SCH (04:54)
[2016-02-22 05:21] LABS: BLOOD GAS BASE EXCESS 2.8 mmol/L (-2-2); BLOOD GAS CARBOXYHEMOGLOBIN 1.5 % (0-4); BLOOD GAS HCO3 28 mmol/L (22-26); BLOOD GAS O2 HGB SATURATION 94 % (90-100); BLOOD GAS OXYGEN CONTENT 10.6 Vol % (12.0-20.0); BLOOD GAS PCO2 51 mmHg (38-42); BLOOD GAS PO2 90 mmHg (61-120); BLOOD GAS TOTAL HGB 7.9 G/DL (12.0-16.0); TEMP CORR TO 98.6
[2016-02-22 05:22] LABS: CRITICAL VALUE YES; DRAW SITE ALINE; FIO2 60 %; OXYGEN DEVICE VENTILATOR; VENT SETTINGS PRVC16/600/0.9/+10
[2016-02-22 05:23] LABS: STAT NO; ULNAR PULSE PRESENT
[2016-02-22 06:27] LABS: HEMATOCRIT 21.3 % (39.0-51.0); MEAN CORPUSCULAR HGB CONC 34.2 % (32.0-36.0); PLATELET COUNT 193 TH/MM3 (150-450); RED BLOOD COUNT 2.43 MIL/MM3 (4.50-5.90); RED CELL DISTRIBUTION WIDTH 14.5 % (11.6-17.2); REVIEW FLAG FINAL; WHITE BLOOD COUNT 10.1 TH/MM3 (4.0-11.0)
[2016-02-22 06:47] LABS: BICARBONATE 28.9 MEQ/L (21.0-32.0); MAGNESIUM 2.5 MG/DL (1.5-2.5); POTASSIUM 3.4 MEQ/L (3.5-5.1)
--- NOTE | 2016-02-22 07:00 | RADRPT ---
EXAM DATE/TIME: 02/22/2016 05:58 [facility] COMPARISON: CHEST SINGLE AP, February 21, 2016, 5:14. INDICATIONS : Follow up trauma to chest. MEDICAL HISTORY : None. SURGICAL HISTORY : None. ENCOUNTER: Subsequent ACUITY: 4 - 6 days PAIN SCORE: Non-responsive. LOCATION: Bilateral chest FINDINGS: Endotracheal tube is stable in satisfactory position. Nasogastric tube descends the stomach. Left tho racostomy tube is present. There appears to be left apical pneumothorax with about 15 mm separation o f apical pleural layers. Dense consolidative change in the left base and worsening opacity in the vis ualized left upper lung. Hazy pleural-parenchymal opacity on the right is grossly stable. Visualized cardiac contours are grossly stable. Upper thoracic spinal fixation hardware is again noted. Skin sta ples remain present. Left subclavian central line is stable. CONCLUSION: Worsening aeration, primarily on the left with left apical pneumothorax despite chest tube. Kudlip Hines MD on February 22, 2016 at 6:56 Board Certified Radiologist. This report was verified electronically.
[2016-02-22 07:24] LABS: STAT NO
[2016-02-22] MEDS: SODIUM CHLOR 0.9% 1000 ML INJ 1,000 ML IV SCH (07:31)
[2016-02-22] MEDS: CHLORHEXIDINE 0.12% (ORAL KIT) 15 ML CUP MT SCH ×2 (07:32→19:44)
[2016-02-22] MEDS: MAGNESIUM HYDROXIDE SUSP 30 ML CUP PO SCH (07:59)
[2016-02-22] MEDS: DOCUSATE SODIUM 100 MG CAP PO SCH ×2 (08:00→19:46)
[2016-02-22] MEDS: SODIUM CHLORIDE 0.9% FLUSH 5 ML FLUSH IVF SCH ×2 (08:00→19:45)
[2016-02-22] MEDS ORDERED: SUCCINYLCHOLINE CHLORIDE 200 MG/10 ML VIAL ONE (08:35)
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
[2016-02-22] MEDS ORDERED: POTASSIUM PHOSPHATE INJ 30 MMOL in SODIUM CHLOR 0.9% 250 ML INJ 250 ML IV PRN (09:30)
[2016-02-22] MEDS ORDERED: MAGNESIUM OXIDE 400 MG TAB PO PRN (09:30)
[2016-02-22] MEDS ORDERED: POTASSIUM PHOSPHATE MONOBASIC 500 MG TAB PO/TUBE PRN (09:30)
[2016-02-22] MEDS ORDERED: POTASSIUM PHOSPHATE MONOBASIC 500 MG TAB PO PRN (09:30)
[2016-02-22] MEDS ORDERED: MAGNESIUM SULFATE INJ 2 GM in SODIUM CHLORIDE 0.9% INJ 96 ML IV PRN (09:30)
[2016-02-22] MEDS ORDERED: SODIUM PHOSPHATE INJ 30 MMOL in SODIUM CHLOR 0.9% 250 ML INJ 240 ML IV PRN (09:30)
[2016-02-22] MEDS ORDERED: MAGNESIUM SULFATE INJ 4 GM in SODIUM CHLORIDE 0.9% INJ 92 ML IV PRN (09:30)
[2016-02-22] MEDS ORDERED: POTASSIUM CHLOR 40 MEQ PREMIX 100 ML IV PRN (09:30)
[2016-02-22] MEDS ORDERED: POTASSIUM CL 40 MEQ/30 ML LIQ UDC PO/TUBE PRN ×2 (09:30)
[2016-02-22] MEDS ORDERED: POTASSIUM CHLOR 20 MEQ PREMIX 100 ML IV PRN ×2 (09:30)
[2016-02-22] MEDS ORDERED: EPINEPHrine HCL (1:10,000) 1 MG/10 ML SYRINGE ONE (09:50)
[2016-02-22] MEDS ORDERED: ATROPINE SULFATE 1 MG/10 ML SYRINGE ONE (09:50)
[2016-02-22] MEDS ORDERED: FUROSEMIDE 20 MG/2 ML VIAL IV PUSH ONE (10:00)
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
--- NOTE | 2016-02-22 11:41 | RADRPT ---
EXAM DATE/TIME: 02/22/2016 10:27 [facility] COMPARISON: CT THORACIC SPINE W/O CONTRAST, February 17, 2016, 16:03. SPINE THORACIC LTD ( AP[facility]LAT), February 20, 2016, 15:12. INDICATIONS : Fracture. Post-operative thoracic surgery. MEDICAL HISTORY : Hypertension. SURGICAL HISTORY : Fusion, thoracic. ENCOUNTER: Subsequent ACUITY: 3 day PAIN SCORE: Nonresponsive. LOCATION: Thoracic spine. TECHNIQUE: Multiplanar multisequence MRI of the thoracic spine was performed. FINDINGS: The patient has had previous transpedicular fixation in the upper thoracic spine with a fracture disl ocation at T3-T4. There is good visualization of the thoracic cord on the T1 weighted acquisitions. T2 weighted acquis itions are severely compromised by artifact. There is minimal epidural soft tissue at T3-T4 causing some flattening of the anterior epidural space . CSF remains around the posterior thoracic spine. There is minimal soft tissue in the anterior epidural space at T1 and T2 that is altering the epidura l space but not deforming the cord. There is very minimal evidence of spinal stenosis at T3-T4, the site of fracture. I don't see a cord compressing hematoma. Given the appearance of the fracture at T3-T4 significant cord contusion and injury are suspected. The lower thoracic spine appears normally aligned. CONCLUSION: Post operative changes as described above. Ramesh Harvey MD FACR on February 22, 2016 at 11:12 Board Certified Radiologist. This report was verified electronically.
[2016-02-22] MEDS: PIPERACIL-TAZO 4.5 GM PREMIX 100 ML IV SCH ×2 (12:00→19:45)
[2016-02-22] MEDS: fentaNYL DRIP 250 ML IV SCH ×2 (14:47→18:06)
[2016-02-22] MEDS: PANTOPRAZOLE SODIUM 40 MG VIAL IV SCH (16:02)
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
[2016-02-23] VITALS (19 sets, daily range): BP systolic 134–147; BP diastolic 51–63; PULSE 96–111; RESP 20–26; TEMP 98.8–103; O2SAT 95–100
[2016-02-23] MEDS: PROPOFOL 1000 MG/100 ML INJ 100 ML IV SCH ×8 (00:36→22:30)
[2016-02-23] MEDS: RESP: ALBUTEROL 2.5 MG/IPRATROPIUM 0.5 MG NEB (PRN) NEB ×2 (03:16→07:54)
[2016-02-23 04:05] LABS: HEMATOCRIT 21.7 % (39.0-51.0); MEAN CELL VOLUME 88.2 FL (80.0-100.0); MEAN CORPUSCULAR HEMOGLOBIN 29.6 PG (27.0-34.0); MEAN CORPUSCULAR HGB CONC 33.6 % (32.0-36.0); PLATELET COUNT 226 TH/MM3 (150-450); RED BLOOD COUNT 2.46 MIL/MM3 (4.50-5.90); RED CELL DISTRIBUTION WIDTH 14.3 % (11.6-17.2); REVIEW FLAG FINAL; WHITE BLOOD COUNT 11.2 TH/MM3 (4.0-11.0)
[2016-02-23 04:29] LABS: BICARBONATE 30.6 MEQ/L (21.0-32.0); POTASSIUM 3.2 MEQ/L (3.5-5.1)
[2016-02-23] MEDS: ACETAMINOPHEN 1000 MG/100 ML VIAL IV PRN ×2 (05:01→20:55)
[2016-02-23] MEDS: PIPERACIL-TAZO 4.5 GM PREMIX 100 ML IV SCH ×3 (05:02→20:54)
[2016-02-23] MEDS: fentaNYL DRIP 250 ML IV SCH ×3 (05:02→22:30)
--- NOTE | 2016-02-23 06:30 | RADRPT ---
EXAM DATE/TIME: 02/23/2016 05:27 [facility] COMPARISON: CHEST SINGLE AP, February 22, 2016, 5:58. INDICATIONS : Trauma to chest MEDICAL HISTORY : Hypertension. Collapsed left lung SURGICAL HISTORY : Fusion, thoracic ENCOUNTER: Subsequent ACUITY: 4 - 6 days PAIN SCORE: Non-responsive. LOCATION: Bilateral chest FINDINGS: Endotracheal tube and nasogastric tube are stable. The thoracostomy tube remains in place. Thoracic s ashu fixation hardware is again noted. There is complete opacification of the left lung. Slight prob able apical pneumothorax. Aeration on the right is improved with mild residual basilar and perihilar parenchymal opacity. CONCLUSION: Complete opacification the left lung. Improving aeration on the right. Kuldip Hines MD on February 23, 2016 at 6:26 Board Certified Radiologist. This report was verified electronically.
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
[2016-02-23] MEDS: RESP: ALBUTEROL 2.5 MG/IPRATROPIUM 0.5 MG NEB (SCH) NEB ×4 (07:55→20:30)
[2016-02-23] MEDS: MAGNESIUM HYDROXIDE SUSP 30 ML CUP PO SCH (09:00)
--- NOTE | 2016-02-23 11:22 | RADRPT ---
EXAM DATE/TIME: 02/23/2016 10:47 [facility] COMPARISON: CHEST SINGLE AP, February 23, 2016, 5:27. INDICATIONS : Post bronchoscopy. Shortness of breath and abnormal opacity in the lungs. MEDICAL HISTORY : Hypertension. Collapsed left lung. SURGICAL HISTORY : Fusion, thoracic. ENCOUNTER: Subsequent ACUITY: 4 - 6 days PAIN SCORE: Non-responsive. LOCATION: Bilateral chest FINDINGS: A single AP semierect portable view of the chest was obtained again demonstrates an endotracheal tube in place with the tip 3 cm above the luis a. A nasogastric tube is seen coursing through the esophag us into the stomach. There is a left subclavian central venous catheter remaining in place. There is a left-sided chest tube with no pneumothorax. There is decreased opacity in the left lung. Hazy perih ilar and bibasal opacities remain. The heart size remains mildly prominent. CONCLUSION: 1. Decreased opacity in the left lung with no pneumothorax. 2. Hazy opacity remains in the perihilar regions and both lung bases most consistent with pulmonary e florence. Zen Maldonado MD on February 23, 2016 at 11:18 Board Certified Radiologist. This report was verified electronically.
[2016-02-23] MEDS: DOCUSATE SODIUM 100 MG CAP PO SCH ×2 (11:36→20:55)
[2016-02-23] MEDS: ENOXAPARIN SODIUM 40 MG/0.4 ML SYRINGE SQ SCH (11:38)
[2016-02-23] MEDS: CHLORHEXIDINE 0.12% (ORAL KIT) 15 ML CUP MT SCH ×2 (11:39→20:54)
[2016-02-23] MEDS: SODIUM CHLORIDE 0.9% FLUSH 5 ML FLUSH IVF SCH ×2 (11:39→20:55)
[2016-02-23] MEDS: METOCLOPRAMIDE HCL 10 MG/2 ML VIAL IV PUSH SCH ×3 (11:49→23:32)
[2016-02-23] MEDS: SODIUM CHLOR 0.45% 1000 ML INJ 1,000 ML IV SCH (11:50)
[2016-02-23] MEDS: PANTOPRAZOLE SODIUM 40 MG VIAL IV SCH (16:30)
--- NOTE | 2016-02-23 19:05 | MP ---
cc: CAT HORTA MD DATE OF SURGERY 02/23/2016 PREOPERATIVE DIAGNOSIS White out of the left lung and respiratory failure, copious secretions. POSTOPERATIVE DIAGNOSIS White out of the left lung and respiratory failure, copious secretions. PROCEDURE ICU bronchoscopy and lavage with cultures. SURGEON Rachael Horta MD ANESTHESIA Propofol sedation on a ventilated patient. PROTOCOL PROCEDURE The patient is prepared in usual fashion. Bronchoscope is now inserted through the endotracheal tube and passed to the bifurcation. On the right side, the patient has minimal secretions. These are suctioned out and no other problem is noted. The patient has massive secretions on the left side where there are large mucous plugs, whitish basilio appearing, slimy and thick. These are suctioned off into the Lukens trap and then sent for cultures. The bronchial tree is now washed out with saline and more mucus plugs are removed going all the way to the second level operation of the bronchi. Once everything is cleaned out, the bronchoscope is withdrawn. The patient tolerated procedure well. Cat ALONSO/ /11:30 AM /6:58 PM
[2016-02-23] MEDS: POTASSIUM CHLOR 40 MEQ PREMIX 100 ML IV PRN ×2 (22:30→23:32)
[2016-02-24] VITALS (20 sets, daily range): BP systolic 122–143; BP diastolic 60–71; PULSE 77–105; RESP 20; TEMP 98.6–101.5; O2SAT 95–100
[2016-02-24] MEDS: PROPOFOL 1000 MG/100 ML INJ 100 ML IV SCH ×7 (01:27→22:13)
[2016-02-24] MEDS: ACETAMINOPHEN 1000 MG/100 ML VIAL IV PRN ×2 (03:27→08:53)
[2016-02-24 03:51] LABS: BASOPHIL # 0.1 TH/MM3 (0-0.2); BASOPHIL % 0.5 % (0.0-2.0); EOSINOPHIL # 0.3 TH/MM3 (0-0.4); EOSINOPHIL % 1.9 % (0.0-4.0); HEMATOCRIT 22.9 % (39.0-51.0); LYMPH % 17.4 % (9.0-44.0); LYMPHOCYTE # 2.7 TH/MM3 (1.0-4.8); MEAN CELL VOLUME 89.4 FL (80.0-100.0); MEAN CORPUSCULAR HEMOGLOBIN 29.5 PG (27.0-34.0); MONO % 14.6 % (0.0-8.0); NEUT % 65.6 % (16.0-70.0); PLATELET COUNT 260 TH/MM3 (150-450); RED BLOOD COUNT 2.56 MIL/MM3 (4.50-5.90); RED CELL DISTRIBUTION WIDTH 14.9 % (11.6-17.2); WHITE BLOOD COUNT 15.3 TH/MM3 (4.0-11.0)
[2016-02-24 03:55] LABS: HEMO FLAGS AUTO DIFF
[2016-02-24] MEDS: RESP: ALBUTEROL 2.5 MG/IPRATROPIUM 0.5 MG NEB (SCH) NEB ×6 (04:00→23:50)
[2016-02-24] MEDS: PIPERACIL-TAZO 4.5 GM PREMIX 100 ML IV SCH ×3 (04:01→20:01)
[2016-02-24 04:34] LABS: ALT (GPT) 53 U/L (12-78); ANION GAP 7 MEQ/L (5-15); AST (GOT) 98 U/L (15-37); BICARBONATE 28.9 MEQ/L (21.0-32.0); BLOOD UREA NITROGEN 9 MG/DL (7-18); CHLORIDE 110 MEQ/L (98-107); GLOMERULAR FILTRATION RATE 105 ML/MIN (>89); POTASSIUM 3.7 MEQ/L (3.5-5.1); SODIUM (NA) 146 MEQ/L (136-145)
[2016-02-24 04:35] LABS: ALKALINE PHOSPHATASE 69 U/L (45-117); TOTAL BILIRUBIN ADULT 1.2 MG/DL (0.2-1.0)
[2016-02-24 04:58] LABS: BANDS 1 % (0-6); BASOPHILS 1 % (0-2); BLASTS 1 % (0-0); EOSINOPHILS 2 % (0-4); METAMYELOCYTES 3 % (0-1); MYELOCYTES 4 % (0-0); NEUTROPHIL # MANUAL DIFF 10.3 TH/MM3 (1.8-7.7); POLYS (SEG NEUTROPHILS) 59 % (16-70); WBC DIFF SAMPLE 100
[2016-02-24 04:59] LABS: PLATELET ESTIMATE SMEAR NORMAL (NORMAL); PLATELET MORPHOLOGY NORMAL (NORMAL); SCAN/DIFF FINAL DIFF MANUAL; STOMATOCYTES 1+ (NORMAL)
--- NOTE | 2016-02-24 05:20 | RADRPT ---
EXAM DATE/TIME: 02/24/2016 03:28 [facility] COMPARISON: CHEST SINGLE AP, February 23, 2016, 5:27. CHEST SINGLE AP, February 23, 2016, 10:47. INDICATIONS : Shortness of breath, possible pulmonary disease. MEDICAL HISTORY : Hypertension. SURGICAL HISTORY : Thoracic spine fusion ENCOUNTER: Subsequent ACUITY: 1 week PAIN SCORE: Non-responsive. LOCATION: Bilateral chest FINDINGS: Endotracheal tube is present in satisfactory position with tip several centimeters above the luis a. Nasogastric tube coils to the stomach. A subclavian central line is stable in satisfactory position. Left thoracostomy tubes again noted. Aeration continues to evolve with recurrent collapse of the righ t upper lobe however improved aeration elsewhere in the lungs bilaterally, particularly in the left l elysia. Visualized cardiac contours are grossly stable. CONCLUSION: Generally improved aeration, however recurrent collapse of the right upper lobe Kuldip Hines MD on February 24, 2016 at 5:16 Board Certified Radiologist. This report was verified electronically.
[2016-02-24 05:31] LABS: BLOOD GAS BASE EXCESS 2.3 mmol/L (-2-2); BLOOD GAS CARBOXYHEMOGLOBIN 1.3 % (0-4); BLOOD GAS HCO3 26 mmol/L (22-26); BLOOD GAS METHEMOGLOBIN 0.9 % (0-2); BLOOD GAS O2 HGB SATURATION 98 % (90-100); BLOOD GAS OXYGEN CONTENT 11.9 Vol % (12.0-20.0); BLOOD GAS PCO2 39 mmHg (38-42); BLOOD GAS PO2 221 mmHg (61-120); BLOOD GAS TOTAL HGB 8.3 G/DL (12.0-16.0); CRITICAL VALUE NO; TEMP CORR TO 98.6
[2016-02-24 05:32] LABS: DRAW SITE ALINE; FIO2 80 %; STAT NO; VENT SETTINGS VENT
[2016-02-24] MEDS: MAGNESIUM HYDROXIDE SUSP 30 ML CUP PO SCH (08:53)
[2016-02-24] MEDS: METOCLOPRAMIDE HCL 10 MG/2 ML VIAL IV PUSH SCH ×3 (08:53→23:30)
[2016-02-24] MEDS: SODIUM CHLORIDE 0.9% FLUSH 5 ML FLUSH IVF SCH ×2 (08:55→20:01)
[2016-02-24] MEDS: CHLORHEXIDINE 0.12% (ORAL KIT) 15 ML CUP MT SCH ×2 (08:55→19:54)
[2016-02-24] MEDS: SODIUM CHLOR 0.45% 1000 ML INJ 1,000 ML IV SCH (08:55)
[2016-02-24] MEDS: DOCUSATE SODIUM 100 MG CAP PO SCH ×2 (08:55→20:01)
[2016-02-24] MEDS: fentaNYL DRIP 250 ML IV SCH ×2 (09:30→19:54)
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
[2016-02-24] MEDS: ENOXAPARIN SODIUM 40 MG/0.4 ML SYRINGE SQ SCH (13:20)
[2016-02-24] MEDS ORDERED: DEXMEDETOMIDINE 200 MCG/50 ML NS IV SCH (14:45)
[2016-02-24] MEDS: PANTOPRAZOLE SODIUM 40 MG VIAL IV SCH (15:24)
[2016-02-24] MEDS: MORPHINE SULFATE 4 MG/ML INJ IV PRN (16:25)
[2016-02-24] MEDS: MIDAZOLAM 100 MG/NS 100 ML DRIP Premix IV SCH (19:07)
[2016-02-25] VITALS (20 sets, daily range): BP systolic 102–132; BP diastolic 45–72; PULSE 77–114; RESP 20; TEMP 97.9–101.7; O2SAT 93–99
[2016-02-25] MEDS: PROPOFOL 1000 MG/100 ML INJ 100 ML IV SCH ×9 (01:20→22:33)
[2016-02-25] MEDS: fentaNYL DRIP 250 ML IV SCH ×3 (03:20→20:16)
[2016-02-25 04:01] LABS: HEMATOCRIT 24.7 % (39.0-51.0); MEAN CELL VOLUME 87.6 FL (80.0-100.0); MEAN CORPUSCULAR HEMOGLOBIN 29.9 PG (27.0-34.0); MEAN CORPUSCULAR HGB CONC 34.1 % (32.0-36.0); PLATELET COUNT 327 TH/MM3 (150-450); RED BLOOD COUNT 2.82 MIL/MM3 (4.50-5.90); RED CELL DISTRIBUTION WIDTH 14.2 % (11.6-17.2); REVIEW FLAG FINAL; WHITE BLOOD COUNT 13.2 TH/MM3 (4.0-11.0)
[2016-02-25] MEDS: PIPERACIL-TAZO 4.5 GM PREMIX 100 ML IV SCH ×3 (04:16→20:16)
[2016-02-25] MEDS: RESP: ALBUTEROL 2.5 MG/IPRATROPIUM 0.5 MG NEB (SCH) NEB ×6 (04:17→23:30)
[2016-02-25 04:39] LABS: BICARBONATE 26.4 MEQ/L (21.0-32.0); MAGNESIUM 2.1 MG/DL (1.5-2.5); POTASSIUM 3.9 MEQ/L (3.5-5.1)
[2016-02-25 05:54] LABS: BLOOD GAS BASE EXCESS 1.4 mmol/L (-2-2); BLOOD GAS CARBOXYHEMOGLOBIN 1.7 % (0-4); BLOOD GAS HCO3 25 mmol/L (22-26); BLOOD GAS O2 HGB SATURATION 95 % (90-100); BLOOD GAS OXYGEN CONTENT 13.1 Vol % (12.0-20.0); BLOOD GAS PCO2 35 mmHg (38-42); BLOOD GAS PO2 106 mmHg (61-120); BLOOD GAS TOTAL HGB 9.6 G/DL (12.0-16.0); CRITICAL VALUE NO; TEMP CORR TO 98.6
[2016-02-25 05:55] LABS: DRAW SITE ALINE; FIO2 40 %; STAT NO; VENT SETTINGS VENT
--- NOTE | 2016-02-25 06:49 | RADRPT ---
EXAM DATE/TIME: 02/25/2016 05:26 [facility] COMPARISON: CHEST SINGLE AP, February 24, 2016, 3:28. INDICATIONS : Right upper lobe collapse and respiratory failure. MEDICAL HISTORY : Hypertension. SURGICAL HISTORY : Thoracic spine fusion ENCOUNTER: Subsequent ACUITY: 2 weeks PAIN SCORE: Non-responsive. LOCATION: Bilateral chest FINDINGS: A single AP semierect view of the chest was obtained and again demonstrates dense opacity in the righ t upper lobe with elevation of the minor fissure consistent with right upper lobe collapse. Abnormal opacity remains at the left lung base with partial obscuration of the hemidiaphragm. A nasogastric tu be is seen coursing through the esophagus into the stomach. An endotracheal tube is present with the tip at the level of thoracic inlet. The left sided PICC line is again noted. The heart size is mildly prominent. The patient is status post upper and mid thoracic fusion with multiple pedicle screws and posterior fixation rods. The right mid clavicular fracture is again noted. CONCLUSION: 1. No significant change in the right upper lobe collapse. 2. Abnormal opacity remains at the left lung base as well. Zen Maldonado MD on February 25, 2016 at 6:46 Board Certified Radiologist. This report was verified electronically.
[2016-02-25] MEDS ORDERED: LACTULOSE SYRUP 20 GM/30 ML CUP PO ONE (07:30)
[2016-02-25] MEDS: CHLORHEXIDINE 0.12% (ORAL KIT) 15 ML CUP MT SCH ×2 (08:00→20:16)
[2016-02-25] MEDS: DOCUSATE SODIUM 100 MG CAP PO SCH ×2 (08:19→20:17)
[2016-02-25] MEDS: SODIUM CHLORIDE 0.9% FLUSH 5 ML FLUSH IVF SCH ×2 (08:19→20:17)
[2016-02-25] MEDS: METOCLOPRAMIDE HCL 10 MG/2 ML VIAL IV PUSH SCH ×3 (08:19→23:51)
[2016-02-25] MEDS: MAGNESIUM HYDROXIDE SUSP 30 ML CUP PO SCH (08:19)
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
[2016-02-25] MEDS: ENOXAPARIN SODIUM 40 MG/0.4 ML SYRINGE SQ SCH (11:48)
[2016-02-25] MEDS: PANTOPRAZOLE SODIUM 40 MG VIAL IV SCH (14:37)
--- NOTE | 2016-02-25 15:02 | RADRPT ---
EXAM DATE/TIME: 02/25/2016 14:49 [facility] COMPARISON: CHEST SINGLE AP, February 25, 2016, 5:26. INDICATIONS : PICC line placement. Chest tube removal. MEDICAL HISTORY : None. SURGICAL HISTORY : None. ENCOUNTER: Subsequent ACUITY: 3 days PAIN SCORE: Non-responsive. LOCATION: Bilateral chest FINDINGS: A single view of the chest demonstrates postsurgical changes with fusion upper thoracic spine. Endotr acheal tube, nasogastric tube and left subclavian central line are stable. Right-sided PICC line with tip in the SVC. Left basilar density. Right upper lobe density. No pneumothorax. The cardiomediastin al contours are unremarkable. Left-sided chest tube removed. CONCLUSION: 1. Medical placement of right-sided PICC line. 2. No pneumothorax. Magdiel Brar MD on February 25, 2016 at 14:58 Board Certified Radiologist. This report was verified electronically.
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
[2016-02-25] MEDS: ACETAMINOPHEN 1000 MG/100 ML VIAL IV PRN (16:26)
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
[2016-02-25] MEDS: MIDAZOLAM 100 MG/NS 100 ML DRIP Premix IV SCH (17:31)
[2016-02-26] VITALS (18 sets, daily range): BP systolic 109–127; BP diastolic 60–69; PULSE 84–115; RESP 20–22; TEMP 97.8–101.1; O2SAT 95–98
[2016-02-26] MEDS: PROPOFOL 1000 MG/100 ML INJ 100 ML IV SCH ×8 (02:54→23:42)
[2016-02-26] MEDS: RESP: ALBUTEROL 2.5 MG/IPRATROPIUM 0.5 MG NEB (SCH) NEB ×5 (03:09→23:22)
--- NOTE | 2016-02-26 04:34 | RADRPT ---
EXAM DATE/TIME: 02/26/2016 03:44 [facility] COMPARISON: CHEST SINGLE AP, February 25, 2016, 14:49. INDICATIONS : Shortness of breath. MEDICAL HISTORY : Hypertension. SURGICAL HISTORY : Fusion, thoracic. ENCOUNTER: Subsequent ACUITY: 1 week PAIN SCORE: Non-responsive. LOCATION: Bilateral chest FINDINGS: A single AP semierect view of the chest was obtained and again demonstrates an endotracheal tube in p lace with the tip at level of thoracic inlet. A nasogastric tube is seen coursing through the esophag us to the stomach. The right-sided PICC line remains. The right upper lobe density is unchanged. Hazy opacity remains at the left lung base. A right clavicular fracture is again visualized there CONCLUSION: No significant change. Zen Maldonado MD on February 26, 2016 at 4:31 Board Certified Radiologist. This report was verified electronically.
[2016-02-26 04:43] LABS: BLOOD GAS BASE EXCESS 1.4 mmol/L (-2-2); BLOOD GAS CARBOXYHEMOGLOBIN 1.6 % (0-4); BLOOD GAS HCO3 25 mmol/L (22-26); BLOOD GAS METHEMOGLOBIN 0.9 % (0-2); BLOOD GAS O2 HGB SATURATION 95 % (90-100); BLOOD GAS OXYGEN CONTENT 11.9 Vol % (12.0-20.0); BLOOD GAS PCO2 37 mmHg (38-42); BLOOD GAS PO2 93 mmHg (61-120); BLOOD GAS TOTAL HGB 8.9 G/DL (12.0-16.0); CRITICAL VALUE NO; DRAW SITE ART LINE; FIO2 40 %; OXYGEN DEVICE VENTILATOR; STAT NO; TEMP CORR TO 98.6; VENT SETTINGS PRVC/AC
[2016-02-26] MEDS: PIPERACIL-TAZO 4.5 GM PREMIX 100 ML IV SCH ×2 (04:45→11:53)
[2016-02-26 06:05] LABS: HEMATOCRIT 26.2 % (39.0-51.0); MEAN CELL VOLUME 88.2 FL (80.0-100.0); MEAN CORPUSCULAR HEMOGLOBIN 29.7 PG (27.0-34.0); MEAN CORPUSCULAR HGB CONC 33.6 % (32.0-36.0); PLATELET COUNT 422 TH/MM3 (150-450); RED BLOOD COUNT 2.98 MIL/MM3 (4.50-5.90); RED CELL DISTRIBUTION WIDTH 14.2 % (11.6-17.2); REVIEW FLAG FINAL; WHITE BLOOD COUNT 12.5 TH/MM3 (4.0-11.0)
[2016-02-26 06:31] LABS: BICARBONATE 26.4 MEQ/L (21.0-32.0); MAGNESIUM 2.1 MG/DL (1.5-2.5); POTASSIUM 3.8 MEQ/L (3.5-5.1)
[2016-02-26] MEDS: MAGNESIUM HYDROXIDE SUSP 30 ML CUP PO SCH (07:39)
[2016-02-26] MEDS: ONDANSETRON HCL 4 MG/2 ML VIAL IV PRN (07:39)
[2016-02-26] MEDS: METOCLOPRAMIDE HCL 10 MG/2 ML VIAL IV PUSH SCH (07:40)
[2016-02-26] MEDS: CHLORHEXIDINE 0.12% (ORAL KIT) 15 ML CUP MT SCH ×2 (07:40→19:51)
[2016-02-26] MEDS: SODIUM CHLORIDE 0.9% FLUSH 5 ML FLUSH IVF SCH ×2 (07:41→19:51)
[2016-02-26] MEDS: DOCUSATE SODIUM 100 MG CAP PO SCH ×2 (07:41→19:51)
[2016-02-26] MEDS ORDERED: BISACODYL 10 MG SUPP RECTAL ONE (07:45)
--- NOTE | 2016-02-26 10:48 | RADRPT ---
EXAM DATE/TIME: 02/26/2016 10:13 [facility] COMPARISON: No previous studies available for comparison. INDICATIONS : Right elbow pain and limited movement. MEDICAL HISTORY : Hypertension. SURGICAL HISTORY : None. ENCOUNTER: Initial ACUITY: 1 day PAIN SCORE: Non-responsive. LOCATION: Right elbow. FINDINGS: Two view examination of the right elbow demonstrates no soft tissue swelling, joint effusion, fractur e or dislocation. Bony mineralization is normal. CONCLUSION: Unremarkable limited examination of the right elbow. Howard Salcedo MD on February 26, 2016 at 10:45 Board Certified Radiologist. This report was verified electronically.
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
[2016-02-26] MEDS: MIDAZOLAM 100 MG/NS 100 ML DRIP Premix IV SCH ×3 (11:53→23:43)
[2016-02-26] MEDS: ENOXAPARIN SODIUM 40 MG/0.4 ML SYRINGE SQ SCH (11:53)
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
[2016-02-26] MEDS: fentaNYL DRIP 250 ML IV SCH ×2 (13:03→19:51)
[2016-02-26] MEDS: ACETAMINOPHEN 1000 MG/100 ML VIAL IV PRN (13:16)
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
[2016-02-26] MEDS: PANTOPRAZOLE SODIUM 40 MG VIAL IV SCH (14:33)
[2016-02-26] MEDS: SODIUM CHLOR 0.45% 1000 ML INJ 1,000 ML IV SCH (17:09)
[2016-02-26] MEDS: CEFEPIME INJ 2,000 MG in SODIUM CHLORIDE 0.9% INJ 100 ML IV SCH ×2 (17:10→23:30)
[2016-02-26 17:26] LABS: BLOOD, URINE MOD (NEG); COMMENT (UR) CULT NOT INDICATED; CULTURE IF INDICATED CULT NOT INDICATED; GLUCOSE,URINE NEG (NEG); KETONE, URINE NEG (NEG); MUCUS URINE FEW /lpf (OCC); NITRITE,URINE NEG (NEG); PH, URINE 7.5 (5.0-8.5); URINE COLOR LIGHT-YELLOW (YELLW/STRAW)
[2016-02-27] VITALS (20 sets, daily range): BP systolic 101–125; BP diastolic 57–76; PULSE 84–120; RESP 20–27; TEMP 99.2–101.9; O2SAT 94–100
[2016-02-27] MEDS: RESP: ALBUTEROL 2.5 MG/IPRATROPIUM 0.5 MG NEB (SCH) NEB ×2 (02:57→07:34)
[2016-02-27] MEDS: PROPOFOL 1000 MG/100 ML INJ 100 ML IV SCH ×8 (04:25→23:59)
[2016-02-27 05:26] LABS: HEMATOCRIT 26.1 % (39.0-51.0); MEAN CELL VOLUME 88.4 FL (80.0-100.0); MEAN CORPUSCULAR HEMOGLOBIN 29.5 PG (27.0-34.0); MEAN CORPUSCULAR HGB CONC 33.4 % (32.0-36.0); PLATELET COUNT 518 TH/MM3 (150-450); RED BLOOD COUNT 2.95 MIL/MM3 (4.50-5.90); RED CELL DISTRIBUTION WIDTH 14.5 % (11.6-17.2); REVIEW FLAG FINAL; WHITE BLOOD COUNT 17.4 TH/MM3 (4.0-11.0)
[2016-02-27 05:45] LABS: BLOOD GAS BASE EXCESS 1.2 mmol/L (-2-2); BLOOD GAS CARBOXYHEMOGLOBIN 1.3 % (0-4); BLOOD GAS HCO3 25 mmol/L (22-26); BLOOD GAS METHEMOGLOBIN 0.8 % (0-2); BLOOD GAS O2 HGB SATURATION 93 % (90-100); BLOOD GAS OXYGEN CONTENT 16.3 Vol % (12.0-20.0); BLOOD GAS PCO2 40 mmHg (38-42); BLOOD GAS PO2 82 mmHg (61-120); BLOOD GAS TOTAL HGB 12.4 G/DL (12.0-16.0); TEMP CORR TO 98.6
[2016-02-27 05:46] LABS: CRITICAL VALUE NO; OXYGEN DEVICE VENTILATOR
[2016-02-27 05:47] LABS: DRAW SITE LT RADIAL; FIO2 40 %; NUMBER OF ARTERIAL PUNCTURES 1; STAT NO; ULNAR PULSE PRESENT; VENT SETTINGS PRVC/AC
[2016-02-27 05:57] LABS: BICARBONATE 26.5 MEQ/L (21.0-32.0); POTASSIUM 3.6 MEQ/L (3.5-5.1)
[2016-02-27] MEDS ORDERED: LACTULOSE SYRUP 20 GM/30 ML CUP PO ONE (07:45)
[2016-02-27] MEDS: CHLORHEXIDINE 0.12% (ORAL KIT) 15 ML CUP MT SCH ×2 (08:00→20:11)
[2016-02-27] MEDS: MAGNESIUM HYDROXIDE SUSP 30 ML CUP PO SCH (08:25)
[2016-02-27] MEDS: CEFEPIME INJ 2,000 MG in SODIUM CHLORIDE 0.9% INJ 100 ML IV SCH ×3 (08:26→22:40)
[2016-02-27] MEDS: fentaNYL DRIP 250 ML IV SCH ×3 (08:26→23:58)
[2016-02-27] MEDS: SODIUM CHLORIDE 0.9% FLUSH 5 ML FLUSH IVF SCH ×2 (09:00→20:11)
[2016-02-27] MEDS: DOCUSATE SODIUM 100 MG CAP PO SCH ×2 (09:00→22:40)
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
--- NOTE | 2016-02-27 10:28 | RADRPT ---
EXAM DATE/TIME: 02/27/2016 10:03 [facility] COMPARISON: CHEST SINGLE AP, February 26, 2016, 3:44. INDICATIONS : Infiltrate. MEDICAL HISTORY : Hypertension. SURGICAL HISTORY : Fusion, thoracic. ENCOUNTER: Subsequent ACUITY: 1 week PAIN SCORE: Non-responsive. LOCATION: Bilateral chest FINDINGS: A single portable frontal view the chest is blurred by motion artifact. Left lower lobe consolidation remains unchanged. Right lung is clear. No consolidation seen in the right apex as seen on the prior study. Heart is normal in size. Endotracheal tube tip is approximately 4 cm cephalad to the luis a. Nasogastric tube tip courses off the inferior margin of the film. Right-sided PICC line noted. Orthop edic hardware at the upper thoracic levels. A right clavicular fracture appreciated. CONCLUSION: Resolution of the consolidation within the right lung apex. This is felt to have related to atelectas is. Consolidation remains within the left lung base Vincent He Jr., MD on February 27, 2016 at 10:24 Board Certified Radiologist. This report was verified electronically.
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
[2016-02-27] MEDS: ENOXAPARIN SODIUM 40 MG/0.4 ML SYRINGE SQ SCH (11:43)
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
[2016-02-27] MEDS ORDERED: Vancomycin Consult Pharmacy 1 EA OTHER SCH (14:15)
[2016-02-27] MEDS: ACETAMINOPHEN 1000 MG/100 ML VIAL IV PRN ×2 (14:23→20:10)
[2016-02-27] MEDS: PANTOPRAZOLE SODIUM 40 MG VIAL IV SCH ×2 (14:24→16:30)
[2016-02-27] MEDS: MIDAZOLAM 100 MG/NS 100 ML DRIP Premix IV SCH ×2 (14:43→23:58)
[2016-02-27] MEDS: VANCOMYCIN INJ 2,000 MG in SODIUM CHLORID 0.9% 500 ML INJ 500 ML IV SCH ×2 (16:17→22:40)
[2016-02-27 18:26] LABS: BLOOD GAS CARBOXYHEMOGLOBIN 1.4 % (0-4); BLOOD GAS HCO3 26 mmol/L (22-26); BLOOD GAS METHEMOGLOBIN 1.1 % (0-2); BLOOD GAS O2 HGB SATURATION 95 % (90-100); BLOOD GAS OXYGEN CONTENT 12.2 Vol % (12.0-20.0); BLOOD GAS PCO2 43 mmHg (38-42); BLOOD GAS PO2 111 mmHg (61-120); BLOOD GAS TOTAL HGB 8.9 G/DL (12.0-16.0); CRITICAL VALUE NO; OXYGEN DEVICE VENTILATOR; TEMP CORR TO 98.6
[2016-02-27 18:27] LABS: DRAW SITE LT RADIAL; FIO2 100 %; NUMBER OF ARTERIAL PUNCTURES 1; STAT YES; ULNAR PULSE PRESENT; VENT SETTINGS PRVC 20/700/12+/0.9I
--- NOTE | 2016-02-27 18:47 | RADRPT ---
EXAM DATE/TIME: 02/27/2016 18:28 [facility] COMPARISON: CHEST SINGLE AP, February 27, 2016, 10:03. INDICATIONS : Respiratory distress MEDICAL HISTORY : Hypertension. SURGICAL HISTORY : Fusion, thoracic. ENCOUNTER: Subsequent ACUITY: 4 - 6 days PAIN SCORE: Non-responsive. LOCATION: Bilateral chest FINDINGS: Consolidation of the left lower lobe with possible small left effusion and small right effusion. Skin denisha, posterior yuniel and transpedicular screw fixation of the thoracic spine noted. Right mid clav icular fracture deformity again seen. Endotracheal tube tip at the inferior margin of the clavicles. NG tube courses beneath the diaphragm. EKG leads are present. CONCLUSION: Increasing consolidation left lower lobe. Lazaro Cavazos MD on February 27, 2016 at 18:45 Board Certified Radiologist. This report was verified electronically.
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
--- NOTE | 2016-02-27 20:44 | RADRPT ---
EXAM DATE/TIME: 02/27/2016 20:19 [facility] COMPARISON: CHEST SINGLE AP, February 27, 2016, 18:28. INDICATIONS : Post Bronchoscopy MEDICAL HISTORY : Hypertension. SURGICAL HISTORY : Thoracic Fusion ENCOUNTER: Subsequent ACUITY: 2 weeks PAIN SCORE: Non-responsive. LOCATION: Bilateral chest FINDINGS: Skin denisha, right and screw fixation of the upper thoracic spine, right clavicular fracture, endotr acheal tube and NG tube are again seen. There is improved aeration of the left lung on the current st udy. Minimal left lower lobe airspace disease remains. CONCLUSION: Improved aeration. Lazaro Cavazos MD on February 27, 2016 at 20:42 Board Certified Radiologist. This report was verified electronically.
[2016-02-27] MEDS ORDERED: IOHEXOL 350 MG/ML 100 ML BTL (for RAD DIAG) IV ONE (21:48)
--- NOTE | 2016-02-27 22:04 | RADRPT ---
EXAM DATE/TIME: 02/27/2016 21:37 [facility] COMPARISON: CHEST SINGLE AP, February 27, 2016, 20:19. INDICATIONS : Desaturation of oxygen, evaluate for pulmonary embolism. IV CONTRAST: 79 cc Omnipaque 350 (iohexol) IV RADIATION DOSE: 24.26 CTDIvol (mGy) MEDICAL HISTORY : None SURGICAL HISTORY : None. ENCOUNTER: Initial ACUITY: 1 day PAIN SCALE: 0/10 LOCATION: chest TECHNIQUE: Volumetric scanning of the chest was performed using a pulmonary embolism protocol MIP images were re constructed. Using automated exposure control and adjustment of the mA and/or kV according to patien t size, radiation dose was kept as low as reasonably achievable to obtain optimal diagnostic quality images. FINDINGS: Examination demonstrates right lower lobe consolidation and atelectasis posteriorly. In addition, the re is dense consolidation and atelectasis of the left lower lobe. Patchy focal consolidation within t he lingula is present. There are small bilateral pleural effusions, right greater than left. NG tube is noted, and there is splenomegaly at 16 cm. There is streak artifact from the patient's posterior s ashu fixation hardware within the cervical spine. This does limit the study for detection of pulmona ry emboli however no definite large emboli are seen centrally. CONCLUSION: 1. No definite evidence for pulmonary embolism. 2. Bilateral lower lobe consolidation and small effusions. Lazaro Cavazos MD on February 27, 2016 at 22:00 Board Certified Radiologist. This report was verified electronically.
[2016-02-27] MEDS: MORPHINE SULFATE 4 MG/ML INJ IV PRN (23:59)
[2016-02-28] VITALS (18 sets, daily range): BP systolic 107–117; BP diastolic 55–63; PULSE 80–109; RESP 20–21; TEMP 97.9–102; O2SAT 25–100
[2016-02-28] MEDS: PROPOFOL 1000 MG/100 ML INJ 100 ML IV SCH ×6 (03:46→19:57)
[2016-02-28] MEDS: ACETAMINOPHEN 1000 MG/100 ML VIAL IV PRN ×2 (03:46→19:57)
[2016-02-28 05:51] LABS: AUTOMATED NEUTROPHIL # 20.1 TH/MM3 (1.8-7.7); BASOPHIL # 0.1 TH/MM3 (0-0.2); BASOPHIL % 0.5 % (0.0-2.0); EOSINOPHIL # 0.5 TH/MM3 (0-0.4); HEMATOCRIT 22.8 % (39.0-51.0); LYMPHOCYTE # 2.6 TH/MM3 (1.0-4.8); MEAN CELL VOLUME 88.1 FL (80.0-100.0); MEAN CORPUSCULAR HEMOGLOBIN 31.7 PG (27.0-34.0); MONO % 9.6 % (0.0-8.0); NEUT % 77.9 % (16.0-70.0); PLATELET COUNT 550 TH/MM3 (150-450); RED BLOOD COUNT 2.59 MIL/MM3 (4.50-5.90); RED CELL DISTRIBUTION WIDTH 14.5 % (11.6-17.2); WHITE BLOOD COUNT 25.8 TH/MM3 (4.0-11.0)
[2016-02-28 05:57] LABS: HEMO FLAGS AUTO DIFF
[2016-02-28 06:13] LABS: BICARBONATE 28.6 MEQ/L (21.0-32.0); POTASSIUM 3.7 MEQ/L (3.5-5.1)
[2016-02-28] MEDS: VANCOMYCIN INJ 2,000 MG in SODIUM CHLORID 0.9% 500 ML INJ 500 ML IV SCH ×3 (07:05→23:48)
[2016-02-28 07:20] LABS: BANDS 9 % (0-6); BASOPHILS 3 % (0-2); EOSINOPHILS 2 % (0-4); METAMYELOCYTES 3 % (0-1); MYELOCYTES 2 % (0-0); NEUTROPHIL # MANUAL DIFF 22.2 TH/MM3 (1.8-7.7); PLATELET ESTIMATE SMEAR HIGH (NORMAL); PLATELET MORPHOLOGY ENLARGED (NORMAL); POLYS (SEG NEUTROPHILS) 72 % (16-70); SCAN/DIFF FINAL DIFF MANUAL; WBC DIFF SAMPLE 100
[2016-02-28] MEDS: MAGNESIUM HYDROXIDE SUSP 30 ML CUP PO SCH (08:22)
[2016-02-28] MEDS: DOCUSATE SODIUM 100 MG CAP PO SCH ×2 (08:22→23:48)
[2016-02-28] MEDS: CHLORHEXIDINE 0.12% (ORAL KIT) 15 ML CUP MT SCH ×2 (08:23→19:58)
[2016-02-28] MEDS: fentaNYL DRIP 250 ML IV SCH ×2 (08:24→19:58)
[2016-02-28] MEDS: CEFEPIME INJ 2,000 MG in SODIUM CHLORIDE 0.9% INJ 100 ML IV SCH ×3 (08:24→23:49)
[2016-02-28] MEDS: MIDAZOLAM 100 MG/NS 100 ML DRIP Premix IV SCH (08:25)
[2016-02-28] MEDS: SODIUM CHLORIDE 0.9% FLUSH 5 ML FLUSH IVF SCH ×2 (08:26→19:59)
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
[2016-02-28] MEDS: ENOXAPARIN SODIUM 40 MG/0.4 ML SYRINGE SQ SCH (11:31)
[2016-02-28] MEDS: MORPHINE SULFATE 4 MG/ML INJ IV PRN (11:52)
[2016-02-28] MEDS: RESP: TOBRAMYCIN SULFATE 80 MG/2 ML NEB NEB SCH ×2 (14:17→19:49)
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
[2016-02-28] MEDS ORDERED: PHARMACY ORDERED LAB XX ONE (14:45)
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
--- NOTE | 2016-02-28 15:38 | RADRPT ---
EXAM DATE/TIME: 02/28/2016 13:44 [facility] COMPARISON: No previous studies available for comparison. INDICATIONS : Bilateral upper extremity swelling. MEDICAL HISTORY : Unable to obtain. SURGICAL HISTORY : Unable to obtain. ENCOUNTER: Initial ACUITY: 1 day PAIN SCORE: 4/10 LOCATION: Bilateral arm. FINDINGS: RIGHT UPPER EXTREMITY: There is spontaneous flow documented in the brachial, basilic, axillary, and subclavian veins. The vessels are compressible and augmentation response is documented. No filling defects are seen. There is evidence of occlusive thrombus in the right cephalic vein. Direction of flow in the jugular vein is caudal. LEFT UPPER EXTREMITY: There is spontaneous flow documented in the brachial, basilic, cephalic, axillary, and subclavian vei ns. The vessels are compressible and augmentation response is documented. No filling defects are se en. The flow is phasic with respiration. Direction of flow in the jugular vein is caudal. CONCLUSION: 1. No evidence of DVT. 2. There is evidence of thrombus in the right cephalic vein consist of a superficial thrombophlebitis . Jesus Hayward MD on February 28, 2016 at 15:34 Board Certified Radiologist. This report was verified electronically.
--- NOTE | 2016-02-28 16:07 | RADRPT ---
EXAM DATE/TIME: 02/28/2016 13:22 [facility] COMPARISON: No previous studies available for comparison. INDICATIONS : Bilateral lower extremity swelling. MEDICAL HISTORY : Unable to obtain. SURGICAL HISTORY : Unable to obtain. ENCOUNTER: Initial ACUITY: 1 day PAIN SCORE: 5/10 LOCATION: Bilateral leg. TECHNIQUE: Venous ultrasound of the left and right leg was performed from the inguinal ligament to the proximal calf. Real-time, color Doppler and spectral tracing, compression and augmentation techniques were us ed. FINDINGS: RIGHT LEG: There is normal compressibility of the deep venous system from the inguinal region to the proximal ca lf. No echogenic clot is seen in the lumen of the common femoral, femoral, popliteal, and posterior tibial veins. There is a normal response of the venous system to proximal and distal augmentation an d respiration. LEFT LEG: There is normal compressibility of the deep venous system from the inguinal region to the proximal ca lf. No echogenic clot is seen in the lumen of the common femoral, femoral, popliteal, and posterior tibial veins. There is a normal response of the venous system to proximal and distal augmentation an d respiration. CONCLUSION: No evidence of DVT. Jesus Hayward MD on February 28, 2016 at 16:06 Board Certified Radiologist. This report was verified electronically.
[2016-02-29] VITALS (19 sets, daily range): BP systolic 101–121; BP diastolic 55–65; PULSE 96–109; RESP 20–23; TEMP 98.5–101.7; O2SAT 94–100
[2016-02-29] MEDS: MORPHINE SULFATE 4 MG/ML INJ IV PRN ×2 (00:41→16:25)
[2016-02-29] MEDS: PROPOFOL 1000 MG/100 ML INJ 100 ML IV SCH ×9 (00:42→23:37)
[2016-02-29] MEDS: MIDAZOLAM 100 MG/NS 100 ML DRIP Premix IV SCH ×3 (02:51→20:19)
[2016-02-29] MEDS: ACETAMINOPHEN 1000 MG/100 ML VIAL IV PRN (04:34)
[2016-02-29] MEDS: VANCOMYCIN INJ 2,000 MG in SODIUM CHLORID 0.9% 500 ML INJ 500 ML IV SCH ×3 (06:31→23:37)
[2016-02-29] MEDS ORDERED: PHARMACY ORDERED LAB XX ONE ×2 (06:45→14:45)
[2016-02-29] MEDS: fentaNYL DRIP 250 ML IV SCH (07:23)
[2016-02-29] MEDS: RESP: TOBRAMYCIN SULFATE 80 MG/2 ML NEB NEB SCH ×2 (07:36→19:24)
[2016-02-29] MEDS: CHLORHEXIDINE 0.12% (ORAL KIT) 15 ML CUP MT SCH ×2 (08:00→20:17)
[2016-02-29] MEDS: CEFEPIME INJ 2,000 MG in SODIUM CHLORIDE 0.9% INJ 100 ML IV SCH ×2 (08:46→16:26)
[2016-02-29] MEDS: MAGNESIUM HYDROXIDE SUSP 30 ML CUP PO SCH (08:46)
[2016-02-29] MEDS: DOCUSATE SODIUM 100 MG CAP PO SCH ×2 (08:47→22:00)
[2016-02-29] MEDS: SODIUM CHLORIDE 0.9% FLUSH 5 ML FLUSH IVF SCH ×2 (08:48→22:00)
--- NOTE | 2016-02-29 09:11 | RADRPT ---
EXAM DATE/TIME: 02/29/2016 08:31 [facility] COMPARISON: CT PULMONARY ANGIOGRAM, February 27, 2016, 21:37. CHEST SINGLE AP, February 27, 2016, 20:19. INDICATIONS : Infiltrates MEDICAL HISTORY : Hypertension. SURGICAL HISTORY : Thoracic Fusion ENCOUNTER: Subsequent ACUITY: 2 weeks PAIN SCORE: Non-responsive. LOCATION: Bilateral chest FINDINGS: ET tube remains above the luis a as well as a nasogastric tube through the midline into the stomach a nd evidence of upper and mid thoracic surgery spinal is noted. Consolidation in the right lung base a nd small area posterior to the left heart border and in left base are appreciated unchanged with no e vidence of pneumothorax. Right PICC line is noted in place. CONCLUSION: Stable chest Howard Salcedo MD on February 29, 2016 at 9:08 Board Certified Radiologist. This report was verified electronically.
[2016-02-29 09:20] LABS: BLOOD GAS BASE EXCESS 2.8 mmol/L (-2-2); BLOOD GAS CARBOXYHEMOGLOBIN 1.4 % (0-4); BLOOD GAS HCO3 27 mmol/L (22-26); BLOOD GAS O2 HGB SATURATION 90 % (90-100); BLOOD GAS OXYGEN CONTENT 10.9 Vol % (12.0-20.0); BLOOD GAS PCO2 41 mmHg (38-42); BLOOD GAS PO2 68 mmHg (61-120); BLOOD GAS TOTAL HGB 8.5 G/DL (12.0-16.0); CRITICAL VALUE YES; OXYGEN DEVICE VENTILATOR; TEMP CORR TO 98.6
[2016-02-29 09:21] LABS: DRAW SITE LT RADIAL; FIO2 75 %; NUMBER OF ARTERIAL PUNCTURES 1; STAT YES; ULNAR PULSE PRESENT; VENT SETTINGS PRVC/AC
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
[2016-02-29] MEDS: ENOXAPARIN SODIUM 40 MG/0.4 ML SYRINGE SQ SCH (12:00)
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
[2016-02-29] MEDS: PANTOPRAZOLE SODIUM 40 MG VIAL IV SCH (16:25)
--- NOTE | 2016-02-29 18:01 | MP ---
cc: CAT HORTA MD DATE OF SURGERY 02/29/16 PREOPERATIVE DIAGNOSIS Atelectasis of the right lung, opacification of the right lower lobe, respiratory failure and paraplegia. POSTOPERATIVE DIAGNOSIS Atelectasis of the right lung, opacification of the right lower lobe, respiratory failure and paraplegia. PROCEDURE Therapeutic bronchoscopy and lavage extraction of massive amount of debris SURGEON Rachael Horta MD ANESTHESIA Sedation The patient is prepared and then bronchoscope was inserted through the endotracheal tube and, under video vision, first the right and then left side is attended. The patient has large amount of debris and mucus plugs in the right side in the right mainstem bronchus. These are suctioned out. Bronchial tree is irrigated and third generation aberration is entered with the bronchoscope and debris removed. The same is done on the left side. Bronchoscope is then withdrawn and chest x-ray Obtained. The patient tolerated procedure well. Cat ALONSO/ /5:13 PM /5:49 PM
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
[2016-03-01] VITALS (18 sets, daily range): BP systolic 95–137; BP diastolic 50–78; PULSE 89–124; RESP 20; TEMP 99–103; O2SAT 93–100
[2016-03-01] MEDS: PROPOFOL 1000 MG/100 ML INJ 100 ML IV SCH ×9 (01:25→22:49)
[2016-03-01] MEDS: CEFEPIME INJ 2,000 MG in SODIUM CHLORIDE 0.9% INJ 100 ML IV SCH ×3 (01:25→15:34)
[2016-03-01] MEDS: fentaNYL DRIP 250 ML IV SCH ×3 (02:13→21:31)
[2016-03-01 05:29] LABS: HEMATOCRIT 23.7 % (39.0-51.0); MEAN CELL VOLUME 87.3 FL (80.0-100.0); MEAN CORPUSCULAR HEMOGLOBIN 29.6 PG (27.0-34.0); MEAN CORPUSCULAR HGB CONC 33.9 % (32.0-36.0); PLATELET COUNT 833 TH/MM3 (150-450); RED BLOOD COUNT 2.72 MIL/MM3 (4.50-5.90); RED CELL DISTRIBUTION WIDTH 14.2 % (11.6-17.2); REVIEW FLAG FINAL; WHITE BLOOD COUNT 19.4 TH/MM3 (4.0-11.0)
[2016-03-01] MEDS: ACETAMINOPHEN 1000 MG/100 ML VIAL IV PRN ×2 (05:33→12:45)
[2016-03-01 05:50] LABS: BICARBONATE 29.9 MEQ/L (21.0-32.0); POTASSIUM 3.9 MEQ/L (3.5-5.1)
[2016-03-01 06:08] LABS: BLOOD GAS BASE EXCESS 5.6 mmol/L (-2-2); BLOOD GAS CARBOXYHEMOGLOBIN 1.3 % (0-4); BLOOD GAS HCO3 30 mmol/L (22-26); BLOOD GAS METHEMOGLOBIN 1.2 % (0-2); BLOOD GAS O2 HGB SATURATION 93 % (90-100); BLOOD GAS OXYGEN CONTENT 10.7 Vol % (12.0-20.0); BLOOD GAS PCO2 44 mmHg (38-42); BLOOD GAS PO2 82 mmHg (61-120); BLOOD GAS TOTAL HGB 8.1 G/DL (12.0-16.0); TEMP CORR TO 98.6
[2016-03-01 06:09] LABS: CRITICAL VALUE NO; DRAW SITE LT RADIAL; FIO2 70 %; NUMBER OF ARTERIAL PUNCTURES 1; OXYGEN DEVICE VENTILATOR; STAT NO; ULNAR PULSE PRESENT
[2016-03-01] MEDS: VANCOMYCIN INJ 2,000 MG in SODIUM CHLORID 0.9% 500 ML INJ 500 ML IV SCH (06:18)
[2016-03-01] MEDS: RESP: ALBUTEROL 2.5 MG/IPRATROPIUM 0.5 MG NEB (SCH) NEB ×3 (07:27→19:29)
[2016-03-01] MEDS: CHLORHEXIDINE 0.12% (ORAL KIT) 15 ML CUP MT SCH ×2 (08:01→21:11)
[2016-03-01] MEDS: MORPHINE SULFATE 4 MG/ML INJ IV PRN ×3 (08:01→21:12)
[2016-03-01] MEDS: SODIUM CHLORIDE 0.9% FLUSH 5 ML FLUSH IVF SCH ×2 (08:03→21:13)
[2016-03-01] MEDS: MAGNESIUM HYDROXIDE SUSP 30 ML CUP PO SCH (08:03)
[2016-03-01] MEDS: LACTULOSE SYRUP 20 GM/30 ML CUP PO SCH (08:03)
[2016-03-01] MEDS: DOCUSATE SODIUM 100 MG CAP PO SCH ×2 (08:03→21:12)
[2016-03-01] MEDS: RESP: TOBRAMYCIN SULFATE 80 MG/2 ML NEB NEB SCH (08:07)
[2016-03-01] MEDS: MIDAZOLAM 100 MG/NS 100 ML DRIP Premix IV SCH ×2 (08:34→18:33)
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
[2016-03-01] MEDS ORDERED: PHARMACY ORDERED LAB XX ONE (14:45)
[2016-03-01] MEDS: PANTOPRAZOLE SODIUM 40 MG VIAL IV SCH (15:35)
[2016-03-01] MEDS: VANCOMYCIN INJ 2,250 MG in SODIUM CHLORID 0.9% 500 ML INJ 500 ML IV SCH (19:29)
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
[2016-03-01] MEDS: ENOXAPARIN SODIUM 30 MG/0.3 ML SYRINGE SQ SCH (21:12)
[2016-03-01 23:21] LABS: BACTERIA, URINE MOD /hpf; BLOOD, URINE MOD (NEG); GLUCOSE,URINE NEG (NEG); KETONE, URINE NEG (NEG); NITRITE,URINE NEG (NEG); PH, URINE 6.5 (5.0-8.5); URINE COLOR LIGHT-YELLOW (YELLW/STRAW)
[2016-03-01 23:23] LABS: COMMENT (UR) CATH-CULTURE IND; CULTURE IF INDICATED CATH CULTURE IND
[2016-03-02] VITALS (18 sets, daily range): BP systolic 111–153; BP diastolic 61–81; PULSE 78–108; RESP 20–33; TEMP 99–101.1; O2SAT 92–100
[2016-03-02] MEDS: CEFEPIME INJ 2,000 MG in SODIUM CHLORIDE 0.9% INJ 100 ML IV SCH ×3 (00:59→15:49)
[2016-03-02] MEDS: MORPHINE SULFATE 4 MG/ML INJ IV PRN ×4 (01:00→20:27)
[2016-03-02] MEDS: RESP: TOBRAMYCIN SULFATE 80 MG/2 ML NEB NEB SCH ×3 (02:13→20:15)
[2016-03-02] MEDS: RESP: ALBUTEROL 2.5 MG/IPRATROPIUM 0.5 MG NEB (SCH) NEB ×4 (02:14→20:12)
[2016-03-02] MEDS: PROPOFOL 1000 MG/100 ML INJ 100 ML IV SCH ×7 (03:42→20:28)
[2016-03-02] MEDS: MIDAZOLAM 100 MG/NS 100 ML DRIP Premix IV SCH ×3 (04:49→20:28)
--- NOTE | 2016-03-02 05:04 | RADRPT ---
EXAM DATE/TIME: 03/02/2016 03:36 [facility] COMPARISON: CHEST SINGLE AP, February 29, 2016, 8:31. INDICATIONS : Please evaluate after respiratory failure. . MEDICAL HISTORY : Hypertension. SURGICAL HISTORY : Thoracic fusion ENCOUNTER: Subsequent ACUITY: 2 weeks PAIN SCORE: Non-responsive. LOCATION: Bilateral chest FINDINGS: A single view of the chest demonstrates new consolidation the right lung apex possible right upper lo be collapse. The endotracheal tube, nasogastric tube and right-sided PICC line in good position. The cardiomediastinal contours are unremarkable. Osseous structures are intact. CONCLUSION: New dense infiltrate right upper lobe with volume loss Possible right upper lobe collapse. Tubes and catheters are in good position Lawrence Etienne MD on March 02, 2016 at 5:01 Board Certified Radiologist. This report was verified electronically.
[2016-03-02 05:31] LABS: BLOOD GAS BASE EXCESS 6.4 mmol/L (-2-2); BLOOD GAS HCO3 31 mmol/L (22-26); BLOOD GAS O2 HGB SATURATION 97 % (90-100); BLOOD GAS PCO2 46 mmHg (38-42); BLOOD GAS PO2 163 mmHg (61-120); BLOOD GAS TOTAL HGB 9.3 G/DL (12.0-16.0); CRITICAL VALUE NO; OXYGEN DEVICE VENTILATOR; TEMP CORR TO 98.6
[2016-03-02 05:32] LABS: DRAW SITE LT RADIAL; FIO2 55 %; NUMBER OF ARTERIAL PUNCTURES 1; STAT NO; ULNAR PULSE PRESENT; VENT SETTINGS PRVC/AC
[2016-03-02 05:41] LABS: BICARBONATE 31.2 MEQ/L (21.0-32.0); MAGNESIUM 2.4 MG/DL (1.5-2.5)
[2016-03-02 06:16] LABS: HEMATOCRIT 24.4 % (39.0-51.0); MEAN CELL VOLUME 88.6 FL (80.0-100.0); MEAN CORPUSCULAR HEMOGLOBIN 29.5 PG (27.0-34.0); MEAN CORPUSCULAR HGB CONC 33.3 % (32.0-36.0); PLATELET COUNT 968 TH/MM3 (150-450); RED BLOOD COUNT 2.76 MIL/MM3 (4.50-5.90); RED CELL DISTRIBUTION WIDTH 14.2 % (11.6-17.2); REVIEW FLAG FINAL; WHITE BLOOD COUNT 15.5 TH/MM3 (4.0-11.0)
[2016-03-02] MEDS: fentaNYL DRIP 250 ML IV SCH ×2 (06:51→15:46)
[2016-03-02] MEDS ORDERED: PHARMACY ORDERED LAB XX ONE (07:45)
[2016-03-02] MEDS: CHLORHEXIDINE 0.12% (ORAL KIT) 15 ML CUP MT SCH ×2 (08:00→20:29)
[2016-03-02] MEDS: SODIUM CHLORIDE 0.9% FLUSH 5 ML FLUSH IVF SCH ×2 (08:27→20:29)
[2016-03-02] MEDS ORDERED: DIATRIZOATE MEGLUM/DIATRIZOATE SOD 9 ML CUP PO ONE (08:30)
[2016-03-02] MEDS: MAGNESIUM HYDROXIDE SUSP 30 ML CUP PO SCH (09:06)
[2016-03-02] MEDS: VANCOMYCIN INJ 2,250 MG in SODIUM CHLORID 0.9% 500 ML INJ 500 ML IV SCH ×2 (09:06→20:28)
[2016-03-02] MEDS: LACTULOSE SYRUP 20 GM/30 ML CUP PO SCH (09:06)
[2016-03-02] MEDS: DOCUSATE SODIUM 100 MG CAP PO SCH ×2 (09:06→20:29)
[2016-03-02] MEDS: ENOXAPARIN SODIUM 30 MG/0.3 ML SYRINGE SQ SCH ×2 (09:06→20:28)
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
[2016-03-02] MEDS: PANTOPRAZOLE SODIUM 40 MG VIAL IV SCH (15:46)
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
[2016-03-02] MEDS: MICAFUNGIN INJ 150 MG in SODIUM CHLORIDE 0.9% INJ 100 ML IV SCH (20:28)
[2016-03-03] VITALS (17 sets, daily range): BP systolic 109–128; BP diastolic 53–77; PULSE 81–114; RESP 20; TEMP 100.7–102.3; O2SAT 94–100
[2016-03-03] MEDS: CEFEPIME INJ 2,000 MG in SODIUM CHLORIDE 0.9% INJ 100 ML IV SCH ×3 (00:58→15:49)
[2016-03-03] MEDS: RESP: ALBUTEROL 2.5 MG/IPRATROPIUM 0.5 MG NEB (SCH) NEB ×4 (03:31→19:33)
[2016-03-03 04:18] LABS: HEMATOCRIT 23.3 % (39.0-51.0); MEAN CELL VOLUME 87.7 FL (80.0-100.0); MEAN CORPUSCULAR HEMOGLOBIN 30.1 PG (27.0-34.0); MEAN CORPUSCULAR HGB CONC 34.3 % (32.0-36.0); PLATELET COUNT 1024 TH/MM3 (150-450); RED BLOOD COUNT 2.66 MIL/MM3 (4.50-5.90); RED CELL DISTRIBUTION WIDTH 14.2 % (11.6-17.2); REVIEW FLAG FINAL; WHITE BLOOD COUNT 14.3 TH/MM3 (4.0-11.0)
[2016-03-03] MEDS: fentaNYL DRIP 250 ML IV SCH ×3 (04:35→19:05)
[2016-03-03] MEDS: ACETAMINOPHEN 1000 MG/100 ML VIAL IV PRN ×3 (04:36→17:31)
[2016-03-03] MEDS: PROPOFOL 1000 MG/100 ML INJ 100 ML IV SCH ×4 (04:37→21:09)
[2016-03-03 04:40] LABS: BICARBONATE 32.2 MEQ/L (21.0-32.0); MAGNESIUM 2.1 MG/DL (1.5-2.5); POTASSIUM 4.2 MEQ/L (3.5-5.1)
--- NOTE | 2016-03-03 05:53 | RADRPT ---
EXAM DATE/TIME: 03/03/2016 04:45 [facility] COMPARISON: CHEST SINGLE AP, March 02, 2016, 3:36. INDICATIONS : Please evaluate after respiratory failure. MEDICAL HISTORY : Hypertension. SURGICAL HISTORY : Thoracic fusion ENCOUNTER: Subsequent ACUITY: 1 month PAIN SCORE: Non-responsive. LOCATION: Bilateral chest FINDINGS: 2 portable frontal views of the chest show persistent consolidation and volume loss involving the rig ht upper lobe. There is a new retrocardiac density on the left. No effusions. Heart is normal in size . Tip of the endotracheal tube is obscured by the spinal hardware. Nasogastric tube courses off the i nferior margin of the film. Posterior fixation device is seen involving the upper thoracic spine. A r ight clavicular fracture is again seen. CONCLUSION: 1. Persistent collapse of the right upper lobe. 2. Developing consolidation within the left lower lobe. Vincent He Jr., MD on March 03, 2016 at 5:50 Board Certified Radiologist. This report was verified electronically.
[2016-03-03 06:03] LABS: BLOOD GAS BASE EXCESS 6.2 mmol/L (-2-2); BLOOD GAS CARBOXYHEMOGLOBIN 1.3 % (0-4); BLOOD GAS HCO3 30 mmol/L (22-26); BLOOD GAS METHEMOGLOBIN 0.8 % (0-2); BLOOD GAS O2 HGB SATURATION 87 % (90-100); BLOOD GAS OXYGEN CONTENT 9.9 Vol % (12.0-20.0); BLOOD GAS PCO2 45 mmHg (38-42); BLOOD GAS PO2 60 mmHg (61-120); BLOOD GAS TOTAL HGB 8.1 G/DL (12.0-16.0); TEMP CORR TO 98.6
[2016-03-03 06:04] LABS: DRAW SITE RT RADIAL; FIO2 50 %; NUMBER OF ARTERIAL PUNCTURES 1; OXYGEN DEVICE VENTILATOR; STAT NO; ULNAR PULSE PRESENT; VENT SETTINGS PRVC20/700/0.9/+10
[2016-03-03] MEDS ORDERED: PHARMACY ORDERED LAB XX ONE (07:45)
[2016-03-03] MEDS: RESP: TOBRAMYCIN SULFATE 80 MG/2 ML NEB NEB SCH ×2 (08:14→19:33)
[2016-03-03] MEDS: MIDAZOLAM 100 MG/NS 100 ML DRIP Premix IV SCH ×2 (08:32→17:31)
[2016-03-03] MEDS: CHLORHEXIDINE 0.12% (ORAL KIT) 15 ML CUP MT SCH ×2 (08:33→20:24)
[2016-03-03] MEDS: DOCUSATE SODIUM 100 MG CAP PO SCH ×2 (08:34→20:24)
[2016-03-03] MEDS: SODIUM CHLORIDE 0.9% FLUSH 5 ML FLUSH IVF SCH ×2 (08:34→20:24)
[2016-03-03] MEDS: MAGNESIUM HYDROXIDE SUSP 30 ML CUP PO SCH (08:34)
[2016-03-03] MEDS: LACTULOSE SYRUP 20 GM/30 ML CUP PO SCH (08:34)
[2016-03-03] MEDS: ENOXAPARIN SODIUM 30 MG/0.3 ML SYRINGE SQ SCH ×2 (08:35→20:23)
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
[2016-03-03] MEDS: VANCOMYCIN INJ 2,250 MG in SODIUM CHLORID 0.9% 500 ML INJ 500 ML IV SCH ×2 (09:51→20:23)
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
[2016-03-03] MEDS: MORPHINE SULFATE 4 MG/ML INJ IV PRN ×3 (10:58→18:17)
[2016-03-03] MEDS ORDERED: LIDOCAINE 1%/EPINEPHrine 1:100,000 SOLN 20 ML VIAL ONE (11:31)
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
[2016-03-03] MEDS: PANTOPRAZOLE SODIUM 40 MG VIAL IV SCH (15:47)
--- NOTE | 2016-03-03 17:12 | MP ---
cc: SORAYA HORTA MD DATE OF SURGERY: 03/03/2016 PREOPERATIVE DIAGNOSIS: Paraplegia T4, respiratory failure. POSTOPERATIVE DIAGNOSIS: Paraplegia T4, respiratory failure. PROCEDURE Blue rhino tracheostomy and bronchoscopy. SURGEON Dr. Horta ANESTHESIA General. ESTIMATED BLOOD LOSS: Minimal DESCRIPTION OF PROCEDURE: The patient was prepped and draped in the usual fashion. The mid neck incision is made, deepened down to the strap muscles which are retracted laterally. The patient has a very thick and meaty isthmus of the thyroid. This is isolated. Right angle placed underneath and with cautery transected. This allows visualization of the tracheal rings. Under bronchoscopy vision, needle is inserted between the second and third ring, through the needle Glidewire space passed inferiorly. Over the Glidewire a small 4 Lithuanian dilator is placed and a second blue rhino is placed to dilate the trachea to 8 Lithuanian. Now over the second dilator, 8 Shiley is introduced, balloon inflated, and Shiley connected to the respiratory. End tidal CO2 is checked. The patient is breathing nicely. There is no resistance and peak pressures remain low. The area is irrigated with copious amounts of saline and then the tracheal cannula sutured to skin with 2-0 Prolene and secured with umbilical tape around the neck. The patient tolerated the procedure well. Soraya ALONSO/RUTH /1:16 PM /4:57 PM
--- NOTE | 2016-03-03 17:42 | RADRPT ---
EXAM DATE/TIME: 03/03/2016 17:20 [facility] COMPARISON: CHEST SINGLE AP, March 03, 2016, 4:45. INDICATIONS : Post tracheostomy. MEDICAL HISTORY : Hypertension. SURGICAL HISTORY : thoracic fusion ENCOUNTER: Initial ACUITY: 2 weeks PAIN SCORE: Non-responsive. LOCATION: Bilateral upper chest FINDINGS: Patient is again seen to be status post fusion with posterior instrumentation of the upper to mid tho racic spine. There is persistent collapse of the right upper lobe and slowly worsening consolidation of the left lung base. I don't see a pneumothorax. Heart size stable, within normal limits. Patient remains intubated. Endotracheal tube tip is at the level of the thoracic inlet, about 8 cm ab ove the luis a. There is a nasogastric tube coursing into the stomach. Midshaft fracture of the right clavicle again noted. CONCLUSION: 1. Slowly worsening consolidation left lung base. 2. Unchanged collapse of the right upper lobe. 3. Thoracic spine fusion and fracture of the right clavicle. 4. Lines and tubes as above. Kuldip Sibley MD on March 03, 2016 at 17:38 Board Certified Radiologist. This report was verified electronically.
[2016-03-03] MEDS: MICAFUNGIN INJ 150 MG in SODIUM CHLORIDE 0.9% INJ 100 ML IV SCH (20:23)
[2016-03-04] VITALS (17 sets, daily range): BP systolic 106–136; BP diastolic 56–83; PULSE 81–114; RESP 20–26; TEMP 101.1–103.5; O2SAT 94–100
[2016-03-04] MEDS: CEFEPIME INJ 2,000 MG in SODIUM CHLORIDE 0.9% INJ 100 ML IV SCH ×3 (00:03→16:11)
[2016-03-04] MEDS: MORPHINE SULFATE 4 MG/ML INJ IV PRN ×3 (00:03→08:37)
[2016-03-04] MEDS: RESP: ALBUTEROL 2.5 MG/IPRATROPIUM 0.5 MG NEB (SCH) NEB ×4 (02:54→19:39)
[2016-03-04] MEDS: MIDAZOLAM 100 MG/NS 100 ML DRIP Premix IV SCH (03:19)
[2016-03-04 05:14] LABS: HEMATOCRIT 23.9 % (39.0-51.0); MEAN CELL VOLUME 87.1 FL (80.0-100.0); MEAN CORPUSCULAR HEMOGLOBIN 29.1 PG (27.0-34.0); MEAN CORPUSCULAR HGB CONC 33.4 % (32.0-36.0); PLATELET COUNT 1062 TH/MM3 (150-450); RED BLOOD COUNT 2.75 MIL/MM3 (4.50-5.90); RED CELL DISTRIBUTION WIDTH 14.3 % (11.6-17.2); REVIEW FLAG FINAL; WHITE BLOOD COUNT 14.6 TH/MM3 (4.0-11.0)
[2016-03-04 05:16] LABS: BLOOD GAS BASE EXCESS 3.8 mmol/L (-2-2); BLOOD GAS CARBOXYHEMOGLOBIN 1.3 % (0-4); BLOOD GAS HCO3 27 mmol/L (22-26); BLOOD GAS O2 HGB SATURATION 95 % (90-100); BLOOD GAS OXYGEN CONTENT 11.3 Vol % (12.0-20.0); BLOOD GAS PCO2 42 mmHg (38-42); BLOOD GAS PO2 104 mmHg (61-120); BLOOD GAS TOTAL HGB 8.3 G/DL (12.0-16.0)
[2016-03-04 05:17] LABS: CRITICAL VALUE NO; DRAW SITE RT RADIAL; FIO2 45 %; NUMBER OF ARTERIAL PUNCTURES 1; OXYGEN DEVICE VENTILATOR; STAT NO; ULNAR PULSE PRESENT; VENT SETTINGS PRVC/AC
[2016-03-04] MEDS: fentaNYL DRIP 250 ML IV SCH ×2 (05:20→16:20)
[2016-03-04] MEDS: PROPOFOL 1000 MG/100 ML INJ 100 ML IV SCH ×2 (05:20→05:21)
[2016-03-04] MEDS: ACETAMINOPHEN 1000 MG/100 ML VIAL IV PRN ×3 (05:20→17:27)
[2016-03-04] MEDS: ONDANSETRON HCL 4 MG/2 ML VIAL IV PRN ×2 (05:21→18:12)
[2016-03-04 05:35] LABS: BICARBONATE 30.1 MEQ/L (21.0-32.0); MAGNESIUM 2.1 MG/DL (1.5-2.5); POTASSIUM 3.8 MEQ/L (3.5-5.1)
--- NOTE | 2016-03-04 05:50 | RADRPT ---
EXAM DATE/TIME: 03/04/2016 04:15 [facility] COMPARISON: CHEST SINGLE AP, March 03, 2016, 17:20. INDICATIONS : Short of breath. MEDICAL HISTORY : Hypertension. SURGICAL HISTORY : Thoracic fusion. ENCOUNTER: Subsequent ACUITY: 2 weeks PAIN SCORE: Non-responsive. LOCATION: Bilateral chest FINDINGS: 2 portable frontal views of the chest show a tracheostomy tube. The lateral left thorax is admitted f rom the film. Consolidation within the right apex remains. The remaining lungs are clear. No effusion on the right. No large effusion on the left. Heart is normal in size. Orthopedic hardware noted. Rig ht-sided PICC line seen. CONCLUSION: Stable exam with persistent consolidation of the right lung apex. Vincent He Jr., MD on March 04, 2016 at 5:48 Board Certified Radiologist. This report was verified electronically.
[2016-03-04] MEDS: CHLORHEXIDINE 0.12% (ORAL KIT) 15 ML CUP MT SCH ×2 (08:00→19:53)
[2016-03-04] MEDS: RESP: TOBRAMYCIN SULFATE 80 MG/2 ML NEB NEB SCH ×2 (08:03→19:39)
[2016-03-04] MEDS: VANCOMYCIN INJ 2,250 MG in SODIUM CHLORID 0.9% 500 ML INJ 500 ML IV SCH ×2 (08:36→19:53)
[2016-03-04] MEDS: ENOXAPARIN SODIUM 30 MG/0.3 ML SYRINGE SQ SCH ×2 (08:36→19:52)
[2016-03-04] MEDS: SODIUM CHLORIDE 0.9% FLUSH 5 ML FLUSH IVF SCH ×2 (09:00→19:53)
[2016-03-04] MEDS: DOCUSATE SODIUM 100 MG CAP PO SCH ×2 (09:00→19:53)
[2016-03-04] MEDS: LACTULOSE SYRUP 20 GM/30 ML CUP PO SCH (09:00)
[2016-03-04] MEDS: MAGNESIUM HYDROXIDE SUSP 30 ML CUP PO SCH (09:00)
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
--- NOTE | 2016-03-04 13:01 | RADRPT ---
EXAM DATE/TIME: 03/04/2016 12:18 [facility] COMPARISON: No previous studies available for comparison. INDICATIONS : DOBHOFF Placement MEDICAL HISTORY : Hypertension. SURGICAL HISTORY : Thoracic Fusion. ENCOUNTER: Subsequent ACUITY: 2 weeks PAIN SCORE: Non-responsive. LOCATION: Abdomen FINDINGS: Supine view of the abdomen was performed. The abdominal bowel gas pattern is normal. There is a Dobb amari feeding tube in the distal stomach. CONCLUSION: Feeding tube in distal stomach. Jesus Hayward MD on March 04, 2016 at 12:59 Board Certified Radiologist. This report was verified electronically.
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
[2016-03-04] MEDS: IBUPROFEN 800 MG TAB PO PRN ×2 (15:47→22:23)
[2016-03-04] MEDS: PANTOPRAZOLE SODIUM 40 MG VIAL IV SCH (16:11)
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
[2016-03-04] MEDS: MICAFUNGIN INJ 150 MG in SODIUM CHLORIDE 0.9% INJ 100 ML IV SCH (19:53)
[2016-03-05] VITALS (22 sets, daily range): BP systolic 103–149; BP diastolic 53–88; PULSE 78–100; RESP 20–23; TEMP 100.4–103; O2SAT 94–100
[2016-03-05] MEDS: CEFEPIME INJ 2,000 MG in SODIUM CHLORIDE 0.9% INJ 100 ML IV SCH ×2 (00:06→08:15)
[2016-03-05] MEDS: RESP: ALBUTEROL 2.5 MG/IPRATROPIUM 0.5 MG NEB (SCH) NEB ×3 (03:26→20:11)
--- NOTE | 2016-03-05 04:01 | RADRPT ---
EXAM DATE/TIME: 03/05/2016 03:24 [facility] COMPARISON: CHEST SINGLE AP, March 04, 2016, 4:15. INDICATIONS : Short of breath MEDICAL HISTORY : Hypertension. SURGICAL HISTORY : Thoracic fusion. ENCOUNTER: Subsequent ACUITY: 4 - 6 days PAIN SCORE: Non-responsive. LOCATION: Bilateral chest FINDINGS: A single portable frontal view of the chest shows resolution of the consolidation involving the right lung apex. There is been the development of consolidation within the left lower lobe. No effusions. Heart is normal in size. Right-sided PICC line, tracheostomy tube, and nasogastric tube again noted. CONCLUSION: Resolution of the consolidation within the right lung apex. Consolidation left lower lobe now seen. Vincent He Jr., MD on March 05, 2016 at 3:58 Board Certified Radiologist. This report was verified electronically.
[2016-03-05 06:29] LABS: HEMATOCRIT 22.3 % (39.0-51.0); MEAN CELL VOLUME 87.6 FL (80.0-100.0); MEAN CORPUSCULAR HEMOGLOBIN 28.9 PG (27.0-34.0); PLATELET COUNT 993 TH/MM3 (150-450); RED BLOOD COUNT 2.54 MIL/MM3 (4.50-5.90); RED CELL DISTRIBUTION WIDTH 14.4 % (11.6-17.2); REVIEW FLAG FINAL; WHITE BLOOD COUNT 14.1 TH/MM3 (4.0-11.0)
[2016-03-05 06:39] LABS: BLOOD GAS BASE EXCESS 2.3 mmol/L (-2-2); BLOOD GAS CARBOXYHEMOGLOBIN 1.3 % (0-4); BLOOD GAS HCO3 27 mmol/L (22-26); BLOOD GAS METHEMOGLOBIN 0.8 % (0-2); BLOOD GAS O2 HGB SATURATION 89 % (90-100); BLOOD GAS PCO2 44 mmHg (38-42); BLOOD GAS PO2 67 mmHg (61-120); BLOOD GAS TOTAL HGB 7.9 G/DL (12.0-16.0); CRITICAL VALUE YES; OXYGEN DEVICE VENTILATOR; TEMP CORR TO 98.6
[2016-03-05 06:40] LABS: DRAW SITE RT BRACHIAL; FIO2 60 %; NUMBER OF ARTERIAL PUNCTURES 1; STAT NO; VENT SETTINGS PRVC/AC
[2016-03-05 07:03] LABS: BICARBONATE 28.8 MEQ/L (21.0-32.0); INDIRECT BILIRUBIN 0.4 MG/DL (0.0-0.8); MAGNESIUM 2.2 MG/DL (1.5-2.5); POTASSIUM 3.7 MEQ/L (3.5-5.1); TOTAL BILIRUBIN ADULT 0.8 MG/DL (0.2-1.0)
[2016-03-05] MEDS: RESP: TOBRAMYCIN SULFATE 80 MG/2 ML NEB NEB SCH ×2 (07:45→20:49)
[2016-03-05] MEDS ORDERED: PHARMACY ORDERED LAB XX ONE (07:45)
[2016-03-05] MEDS: CHLORHEXIDINE 0.12% (ORAL KIT) 15 ML CUP MT SCH ×2 (08:00→20:00)
[2016-03-05] MEDS: LACTULOSE SYRUP 20 GM/30 ML CUP PO SCH (08:16)
[2016-03-05] MEDS: MAGNESIUM HYDROXIDE SUSP 30 ML CUP PO SCH (08:16)
[2016-03-05] MEDS: ENOXAPARIN SODIUM 30 MG/0.3 ML SYRINGE SQ SCH ×2 (08:16→20:22)
[2016-03-05] MEDS: VANCOMYCIN INJ 2,250 MG in SODIUM CHLORID 0.9% 500 ML INJ 500 ML IV SCH (08:16)
[2016-03-05] MEDS: DOCUSATE SODIUM 100 MG CAP PO SCH ×2 (08:17→20:22)
[2016-03-05] MEDS: SODIUM CHLORIDE 0.9% FLUSH 5 ML FLUSH IVF SCH ×2 (08:17→20:22)
[2016-03-05] MEDS ORDERED: FUROSEMIDE 20 MG/2 ML VIAL IV ONE (10:00)
[2016-03-05] MEDS ORDERED: SODIUM CHLOR 0.9% 250 ML INJ 250 ML IV ONE (10:00)
[2016-03-05] MEDS: fentaNYL DRIP 250 ML IV SCH ×2 (10:53→20:21)
--- NOTE | 2016-03-05 10:58 | HHI.PR ---
Neuropsych Emotional Emotional: Moderate: Irritable/Angry/Frustrate Behavior Behavior: Mild: Frustration Tolerance/[place] Cognitive Cognitive: Unable to Asses: Cognitive, Attention/Concentration, Confused/ Orientation, Insight/Awareness, Judgement/Problem-Solving, Memory Psychosocial Psychosocial: Unable to Asses: Psychosocial, Family/Other Adjustment, Realistic Expectation, Self-Esteem/Confidence Progress Notes/Response to Tx Contents of Sessions: Adjustment Time with Patient: 15 minutes Premorbid psychological status Patient has high school education and some college. No history of behavioral difficulties, academic challenges or grade repetitions while in school. Not working and on social security disability due to psychiatric reasons. Patient has a fiancee and one child. Maximizing acute care outcome It is recommended that the patient be monitored for emergent behavioral impulsivity as the medical condition evolves. This patients neuropathological challenges may limit their rehabilitation potential going forward, and these challenges will require specialized therapeutic skills to maximize outcome. Additionally, the patients family is experiencing ongoing issues of adjustment given the traumatic nature of the injury, and they will benefit from ongoing psychological assistance. I am meeting with the patient's mother and support system daily to facilitate their adjustment. Anticipated Problems Ongoing areas of concern will include behavioral impulsivity, and lack of insight and judgment, which is expected to improve with time and treatment. There is also the issue of his spinal cord injury and to what extent he will regain functioning. Treatment Plan This clinician will continue to follow with you throughout the course of this patients acute care treatment, and I will be available to meet with the patient s family/support system to facilitate their understanding and the ongoing care of their family member. The goals of neuropsychological intervention shall be both educational and supportive to the family/support system as is deemed clinically appropriate. Diagnosis: (1) Closed head injury Status: Resolved (2) Altered mental status Status: Resolved Progress Note Narrative Ongoing follow-up of patient with trauma rounds. He is alert and oriented to person. Verbalizations are not possible due to life sustaining devices. He follows basic commands. His awareness and capacity for insight are unable to be determined at this time. He has had psychiatric issues in the past in the form of intermittent explosive disorder, per his mother, and medical personnel have decided to continue to pharmacologically treat such issues in an attempt at furthering his medical improvement while on the unit. I will continue to follow with you. Problem Qualifiers (1) Closed head injury: Qualified Code: S09.90XD - Closed head injury, subsequent encounter Tacho Myers PhD Mar 05, 2016 10:58 am
[2016-03-05] MEDS: IBUPROFEN 800 MG TAB PO PRN ×2 (13:11→21:18)
[2016-03-05] MEDS: MEPERIDINE HCL 25 MG/ML VIAL IV PRN ×2 (13:11→20:21)
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
[2016-03-05] MEDS: MORPHINE SULFATE 4 MG/ML INJ IV PRN (15:21)
[2016-03-05] MEDS: PANTOPRAZOLE SODIUM 40 MG VIAL IV SCH (15:24)
[2016-03-05] MEDS: LEVOFLOXACIN 750 MG PREMIX INJ 150 ML IV SCH (16:09)
[2016-03-05] MEDS: MICAFUNGIN INJ 150 MG in SODIUM CHLORIDE 0.9% INJ 100 ML IV SCH (20:21)
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
[2016-03-05] MEDS ORDERED: QUEtiapine FUMARATE 25 MG TAB PO SCH (21:00)
[2016-03-05] MEDS: ONDANSETRON HCL 4 MG/2 ML VIAL IV PRN (21:17)
[2016-03-06] VITALS (19 sets, daily range): BP systolic 92–131; BP diastolic 53–96; PULSE 76–114; RESP 18–26; TEMP 101.2–102.7; O2SAT 88–100
[2016-03-06] MEDS: MORPHINE SULFATE 4 MG/ML INJ IV PRN (00:47)
[2016-03-06] MEDS: ACETAMINOPHEN 1000 MG/100 ML VIAL IV PRN ×3 (00:48→16:24)
[2016-03-06 03:06] LABS: HEMATOCRIT 28.3 % (39.0-51.0); REVIEW FLAG FINAL
[2016-03-06] MEDS: RESP: ALBUTEROL 2.5 MG/IPRATROPIUM 0.5 MG NEB (SCH) NEB ×4 (03:41→20:18)
[2016-03-06 05:13] LABS: HEMATOCRIT 27.7 % (39.0-51.0); MEAN CELL VOLUME 85.9 FL (80.0-100.0); MEAN CORPUSCULAR HEMOGLOBIN 29.3 PG (27.0-34.0); MEAN CORPUSCULAR HGB CONC 34.1 % (32.0-36.0); PLATELET COUNT 949 TH/MM3 (150-450); RED BLOOD COUNT 3.22 MIL/MM3 (4.50-5.90); RED CELL DISTRIBUTION WIDTH 14.3 % (11.6-17.2); REVIEW FLAG FINAL; WHITE BLOOD COUNT 15.4 TH/MM3 (4.0-11.0)
[2016-03-06 05:30] LABS: BICARBONATE 29.4 MEQ/L (21.0-32.0); MAGNESIUM 2.1 MG/DL (1.5-2.5); POTASSIUM 3.9 MEQ/L (3.5-5.1)
[2016-03-06] MEDS: IBUPROFEN 800 MG TAB PO PRN ×3 (05:43→20:46)
[2016-03-06] MEDS: fentaNYL DRIP 250 ML IV SCH (05:43)
[2016-03-06 06:14] LABS: BLOOD GAS BASE EXCESS 3.2 mmol/L (-2-2); BLOOD GAS CARBOXYHEMOGLOBIN 1.2 % (0-4); BLOOD GAS HCO3 27 mmol/L (22-26); BLOOD GAS METHEMOGLOBIN 0.7 % (0-2); BLOOD GAS O2 HGB SATURATION 96 % (90-100); BLOOD GAS OXYGEN CONTENT 14.3 Vol % (12.0-20.0); BLOOD GAS PCO2 40 mmHg (38-42); BLOOD GAS PO2 106 mmHg (61-120); BLOOD GAS TOTAL HGB 10.5 G/DL (12.0-16.0); CRITICAL VALUE NO; OXYGEN DEVICE VENTILATOR; TEMP CORR TO 98.6
[2016-03-06 06:16] LABS: DRAW SITE RT RADIAL; FIO2 50 %; NUMBER OF ARTERIAL PUNCTURES 2; STAT NO; ULNAR PULSE PRESENT; VENT SETTINGS PRVC/AC/20/700/PEEP1
--- NOTE | 2016-03-06 06:42 | RADRPT ---
EXAM DATE/TIME: 03/06/2016 05:38 [facility] COMPARISON: CHEST SINGLE AP, March 05, 2016, 3:24. INDICATIONS : Evaluate for pulmonary disease. MEDICAL HISTORY : Hypertension. SURGICAL HISTORY : Thoracic fusion. ENCOUNTER: Subsequent ACUITY: 1 week PAIN SCORE: Non-responsive. LOCATION: Bilateral chest FINDINGS: A single portable frontal view of the chest shows no change in the dense consolidation within the lef t lung base. Right lung is clear. Heart is at the upper limits of normal in terms of size. Tip of the Dobbhoff feeding tube just past the GE junction. Thoracic spine hardware and right-sided PICC line n oted. CONCLUSION: Unchanged left lower lobe consolidation. Vincent He Jr., MD on March 06, 2016 at 6:39 Board Certified Radiologist. This report was verified electronically.
[2016-03-06] MEDS: MAGNESIUM HYDROXIDE SUSP 30 ML CUP PO SCH (07:31)
[2016-03-06] MEDS: LACTULOSE SYRUP 20 GM/30 ML CUP PO SCH (07:31)
[2016-03-06] MEDS: DOCUSATE SODIUM 100 MG CAP PO SCH ×2 (07:31→20:46)
[2016-03-06] MEDS: RESP: TOBRAMYCIN SULFATE 80 MG/2 ML NEB NEB SCH ×2 (07:46→20:18)
[2016-03-06] MEDS: CHLORHEXIDINE 0.12% (ORAL KIT) 15 ML CUP MT SCH ×2 (08:27→20:49)
[2016-03-06] MEDS: ENOXAPARIN SODIUM 30 MG/0.3 ML SYRINGE SQ SCH ×2 (08:28→20:48)
[2016-03-06] MEDS: SODIUM CHLORIDE 0.9% FLUSH 5 ML FLUSH IVF SCH ×2 (08:28→20:48)
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
[2016-03-06] MEDS ORDERED: oxyCODONE HCL ORAL CONC 20 MG/ML SYRINGE PO PRN (10:45)
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
[2016-03-06] MEDS ORDERED: QUEtiapine FUMARATE 25 MG TAB PO ONE (12:30)
[2016-03-06] MEDS: oxyCODONE HCL ORAL CONC 20 MG/ML SYRINGE PO PRN ×2 (13:05→20:48)
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
[2016-03-06] MEDS: LEVOFLOXACIN 750 MG PREMIX INJ 150 ML IV SCH (16:00)
[2016-03-06] MEDS: QUEtiapine FUMARATE 25 MG TAB PO SCH (20:45)
[2016-03-06] MEDS: MICAFUNGIN INJ 150 MG in SODIUM CHLORIDE 0.9% INJ 100 ML IV SCH (20:58)
[2016-03-07] VITALS (20 sets, daily range): BP systolic 105–128; BP diastolic 56–76; PULSE 64–98; RESP 17–29; TEMP 100.9–101.8; O2SAT 82–100
[2016-03-07] MEDS: oxyCODONE HCL ORAL CONC 20 MG/ML SYRINGE PO PRN ×3 (00:48→11:59)
[2016-03-07] MEDS: ACETAMINOPHEN 1000 MG/100 ML VIAL IV PRN (00:55)
[2016-03-07] MEDS: MEPERIDINE HCL 25 MG/ML VIAL IV PRN ×3 (02:25→17:55)
[2016-03-07] MEDS: ONDANSETRON HCL 4 MG/2 ML VIAL IV PRN ×3 (02:25→17:55)
[2016-03-07 02:28] LABS: C. DIFF EPI 027 PRESUMPTIVE NEGATIVE (NEGATIVE); C. DIFF TOXIN PCR NEGATIVE (NEGATIVE)
[2016-03-07] MEDS: RESP: ALBUTEROL 2.5 MG/IPRATROPIUM 0.5 MG NEB (SCH) NEB ×4 (03:53→21:23)
[2016-03-07 05:48] LABS: BLOOD GAS BASE EXCESS 3.6 mmol/L (-2-2); BLOOD GAS CARBOXYHEMOGLOBIN 1.4 % (0-4); BLOOD GAS HCO3 27 mmol/L (22-26); BLOOD GAS METHEMOGLOBIN 0.8 % (0-2); BLOOD GAS O2 HGB SATURATION 87 % (90-100); BLOOD GAS OXYGEN CONTENT 13.4 Vol % (12.0-20.0); BLOOD GAS PCO2 39 mmHg (38-42); BLOOD GAS PO2 59 mmHg (61-120); BLOOD GAS TOTAL HGB 10.9 G/DL (12.0-16.0); CRITICAL VALUE YES; OXYGEN DEVICE VENTILATOR; TEMP CORR TO 98.6
[2016-03-07 05:49] LABS: HEMATOCRIT 28.6 % (39.0-51.0); MEAN CELL VOLUME 86.6 FL (80.0-100.0); MEAN CORPUSCULAR HEMOGLOBIN 29.4 PG (27.0-34.0); PLATELET COUNT 926 TH/MM3 (150-450); RED CELL DISTRIBUTION WIDTH 14.3 % (11.6-17.2); REVIEW FLAG FINAL; WHITE BLOOD COUNT 13.8 TH/MM3 (4.0-11.0)
[2016-03-07 05:49] LABS: DRAW SITE LT RADIAL; FIO2 40 %; NUMBER OF ARTERIAL PUNCTURES 1; STAT NO; ULNAR PULSE PRESENT; VENT SETTINGS PRVC/AC
[2016-03-07 06:11] LABS: BICARBONATE 30.5 MEQ/L (21.0-32.0)
--- NOTE | 2016-03-07 06:31 | RADRPT ---
EXAM DATE/TIME: 03/07/2016 05:25 [facility] COMPARISON: CHEST SINGLE AP, March 06, 2016, 5:38. INDICATIONS : Please evaluate after respiratory failure. MEDICAL HISTORY : Hypertension. SURGICAL HISTORY : Thoracic fusion ENCOUNTER: Subsequent ACUITY: 3 weeks PAIN SCORE: Non-responsive. LOCATION: Bilateral chest FINDINGS: Persistent consolidation left mid and lower lung with loss of delineation of the entire left hemidiap hragm. There is a new ill-defined area of infiltrate in the medial right midlung. Metallic tip tube projects over the stomach. Displaced fracture of the right clavicle. Upper thoracic posterior spin al instrumentation. CONCLUSION: Persistent left lower lobe consolidation and a small new right midlung infiltrate. Vincent Bo MD on March 07, 2016 at 6:27 Board Certified Radiologist. This report was verified electronically.
[2016-03-07] MEDS: RESP: TOBRAMYCIN SULFATE 80 MG/2 ML NEB NEB SCH ×2 (08:35→19:30)
[2016-03-07] MEDS: DOCUSATE SODIUM 100 MG CAP PO SCH ×2 (08:59→20:35)
[2016-03-07] MEDS: MAGNESIUM HYDROXIDE SUSP 30 ML CUP PO SCH (09:00)
[2016-03-07] MEDS: LACTULOSE SYRUP 20 GM/30 ML CUP PO SCH (09:00)
[2016-03-07] MEDS: ENOXAPARIN SODIUM 30 MG/0.3 ML SYRINGE SQ SCH ×2 (09:00→20:35)
[2016-03-07] MEDS: CHLORHEXIDINE 0.12% (ORAL KIT) 15 ML CUP MT SCH ×2 (09:02→21:13)
[2016-03-07] MEDS: SODIUM CHLORIDE 0.9% FLUSH 5 ML FLUSH IVF SCH ×2 (09:02→21:13)
[2016-03-07] MEDS: QUEtiapine FUMARATE 25 MG TAB PO SCH ×2 (09:03→20:35)
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
[2016-03-07] MEDS ORDERED: DIATRIZOATE MEGLUM/DIATRIZOATE SOD 9 ML CUP PO ONE (10:30)
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
[2016-03-07] MEDS ORDERED: EPINEPHrine HCL (1:10,000) 1 MG/10 ML SYRINGE ONE (14:05)
[2016-03-07] MEDS ORDERED: ATROPINE SULFATE 1 MG/10 ML SYRINGE ONE (14:05)
[2016-03-07] MEDS ORDERED: LIDOCAINE HCL 2% 100 MG/5 ML SYRINGE ONE (14:05)
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
[2016-03-07] MEDS ORDERED: MIDAZOLAM HCL 2 MG/2 ML VIAL ONE (14:52)
[2016-03-07] MEDS ORDERED: IOHEXOL 350 MG/ML 50 ML BTL (for RAD DIAG) ONE (15:40)
[2016-03-07] MEDS ORDERED: IOHEXOL 350 MG/ML 10 ML VIAL (for RAD DIAG) IV ONE (16:17)
[2016-03-07] MEDS: LEVOFLOXACIN 750 MG PREMIX INJ 150 ML IV SCH (16:29)
--- NOTE | 2016-03-07 16:53 | RADRPT ---
EXAM DATE/TIME: 03/07/2016 16:14 [facility] COMPARISON: No previous studies available for comparison. INDICATIONS : Evaluate for pleural effusion. IV CONTRAST: 97 cc Omnipaque 350 (iohexol) IV ; Cumulative dose for multiple exams. RADIATION DOSE: 20.46 CTDIvol (mGy) ; Combined studies - Thorax/Abdomen/Pelvis MEDICAL HISTORY : None SURGICAL HISTORY : None. ENCOUNTER: Initial ACUITY: 1 week PAIN SCALE: Non-responsive LOCATION: chest TECHNIQUE: Volumetric scanning of the chest was performed. Using automated exposure control and adjustment of t he mA and/or kV according to patient size, radiation dose was kept as low as reasonably achievable to obtain optimal diagnostic quality images. FINDINGS: Compare CT from February 26. Right basilar lung consolidation has improved. Left basilar lung consoli dation is similar to prior study. There is a very small left pleural effusion and trace right pleural fluid not significantly changed since February 26. Tracheostomy present. Feeding tube tip in the sto mach fixation of the thoracic spine noted. Right PICC line in superior vena cava. CONCLUSION: 1. No significant pleural effusions. Improved right basilar lung consolidation since February 26. Sta ble left basilar lung consolidation. 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 See abdomen CT. Celio Mejía MD on March 07, 2016 at 16:45 Board Certified Radiologist. This report was verified electronically.
--- NOTE | 2016-03-07 17:04 | RADRPT ---
EXAM DATE/TIME: 03/07/2016 16:14 [facility] COMPARISON: No previous studies available for comparison. INDICATIONS : Fever of unknown origin. IV CONTRAST: 97 cc Omnipaque 350 (iohexol) IV ; Cumulative dose for multiple exams. ORAL CONTRAST: Prescribed oral contrast ingested. RADIATION DOSE: 20.46 CTDIvol (mGy) ; Combined studies - Thorax/Abdomen/Pelvis MEDICAL HISTORY : None SURGICAL HISTORY : None. ENCOUNTER: Initial ACUITY: 1 week PAIN SCALE: Non-responsive LOCATION: Abdomen/pelvis TECHNIQUE: Volumetric scanning of the abdomen and pelvis was performed. Using automated exposure control and ad justment of the mA and/or kV according to patient size, radiation dose was kept as low as reasonably achievable to obtain optimal diagnostic quality images. FINDINGS: There is basilar lung consolidation, left greater than right. No acute findings in the liver. There are multiple areas of decreased perfusion in the spleen most ch aracteristic of multiple splenic infarcts or splenic lacerations associated with infarct. No acute findings in the adrenals, kidneys or pancreas. Inferior vena cava filter present. No gallsto noah or biliary ductal dilatation identified. There is no bowel obstruction. No free air or free fluid . Palmer catheter present in decompressed bladder. CONCLUSION: 1. Multiple splenic infarcts, possibly associated with splenic lacerations. No abnormal fluid collect ions within the abdomen and pelvis to suggest abscess. Celio Mejía MD on March 07, 2016 at 16:55 Board Certified Radiologist. This report was verified electronically.
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
[2016-03-08] VITALS (19 sets, daily range): BP systolic 103–132; BP diastolic 64–88; PULSE 76–113; RESP 20–30; TEMP 100.2–102; O2SAT 90–100
[2016-03-08] MEDS: RESP: ALBUTEROL 2.5 MG/IPRATROPIUM 0.5 MG NEB (SCH) NEB ×4 (03:12→21:06)
[2016-03-08] MEDS: oxyCODONE HCL ORAL CONC 20 MG/ML SYRINGE PO PRN ×4 (04:20→22:10)
[2016-03-08 05:26] LABS: BLOOD GAS BASE EXCESS 4.9 mmol/L (-2-2); BLOOD GAS CARBOXYHEMOGLOBIN 1.2 % (0-4); BLOOD GAS HCO3 28 mmol/L (22-26); BLOOD GAS METHEMOGLOBIN 0.8 % (0-2); BLOOD GAS O2 HGB SATURATION 97 % (90-100); BLOOD GAS OXYGEN CONTENT 14.2 Vol % (12.0-20.0); BLOOD GAS PCO2 37 mmHg (38-42); BLOOD GAS PO2 121 mmHg (61-120); BLOOD GAS TOTAL HGB 10.3 G/DL (12.0-16.0); TEMP CORR TO 98.6
[2016-03-08 05:27] LABS: CRITICAL VALUE NO; OXYGEN DEVICE VENTILATOR
[2016-03-08 05:28] LABS: DRAW SITE RT RADIAL; FIO2 60 %; NUMBER OF ARTERIAL PUNCTURES 1; ULNAR PULSE PRESENT; VENT SETTINGS PRVC/AC
[2016-03-08 05:29] LABS: STAT NO
--- NOTE | 2016-03-08 06:08 | RADRPT ---
EXAM DATE/TIME: 03/08/2016 04:40 [facility] COMPARISON: CHEST SINGLE AP, March 07, 2016, 5:25. INDICATIONS : Shortness of breath. MEDICAL HISTORY : None. SURGICAL HISTORY : None. ENCOUNTER: Subsequent ACUITY: 3 weeks PAIN SCORE: Non-responsive. LOCATION: Bilateral chest FINDINGS: Tracheostomy and feeding tube in place. There is persistent consolidation left mid and lower lung wi th loss of delineation of the entire left hemidiaphragm. The right lung is clear. Interval resoluti on of the horizontal opacity in the right midlung. CONCLUSION: Left lower lobe consolidation, stable. Improved aeration of the right lung. Vincent Bo MD on March 08, 2016 at 6:06 Board Certified Radiologist. This report was verified electronically.
[2016-03-08 07:03] LABS: HEMATOCRIT 29.7 % (39.0-51.0); MEAN CELL VOLUME 86.7 FL (80.0-100.0); MEAN CORPUSCULAR HEMOGLOBIN 28.4 PG (27.0-34.0); MEAN CORPUSCULAR HGB CONC 32.8 % (32.0-36.0); PLATELET COUNT 754 TH/MM3 (150-450); RED BLOOD COUNT 3.43 MIL/MM3 (4.50-5.90); RED CELL DISTRIBUTION WIDTH 14.2 % (11.6-17.2); REVIEW FLAG FINAL; WHITE BLOOD COUNT 12.3 TH/MM3 (4.0-11.0)
[2016-03-08] MEDS: RESP: TOBRAMYCIN SULFATE 80 MG/2 ML NEB NEB SCH ×2 (08:08→20:24)
[2016-03-08] MEDS: ENOXAPARIN SODIUM 30 MG/0.3 ML SYRINGE SQ SCH ×2 (08:32→19:50)
[2016-03-08] MEDS: CHLORHEXIDINE 0.12% (ORAL KIT) 15 ML CUP MT SCH ×2 (08:32→22:10)
[2016-03-08] MEDS: SODIUM CHLORIDE 0.9% FLUSH 5 ML FLUSH IVF SCH ×2 (08:32→19:51)
[2016-03-08] MEDS: DOCUSATE SODIUM 100 MG CAP PO SCH ×2 (08:33→19:50)
[2016-03-08] MEDS: QUEtiapine FUMARATE 25 MG TAB PO SCH ×2 (08:33→19:50)
[2016-03-08] MEDS: MAGNESIUM HYDROXIDE SUSP 30 ML CUP PO SCH (08:33)
[2016-03-08] MEDS: LACTULOSE SYRUP 20 GM/30 ML CUP PO SCH (08:33)
[2016-03-08] MEDS ORDERED: ASPIRIN 325 MG TAB PO SCH (10:00)
[2016-03-08 11:38] LABS: BICARBONATE 29.7 MEQ/L (21.0-32.0); POTASSIUM 4.3 MEQ/L (3.5-5.1)
[2016-03-08] MEDS: ONDANSETRON HCL 4 MG/2 ML VIAL IV PRN (11:39)
[2016-03-08] MEDS: MEPERIDINE HCL 25 MG/ML VIAL IV PRN (11:39)
[2016-03-08] MEDS ORDERED: SODIUM CHLOR 0.9% 1000 ML INJ 1,000 ML IV SCH (14:15)
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
[2016-03-08] MEDS: IBUPROFEN 600 MG TAB PO SCH ×2 (14:41→22:10)
[2016-03-08] MEDS: LEVOFLOXACIN 750 MG PREMIX INJ 150 ML IV SCH (14:41)
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
--- NOTE | 2016-03-08 20:01 | EC ---
Study Study Date:03/08/2016 STUDY CONCLUSIONS SUMMARY - Left ventricle: The cavity size was normal. Wall thickness was normal. Systolic function was normal. The estimated ejection fraction was in the range of 55% to 60%. Wall motion was normal; there were no regional wall motion abnormalities. - Aortic valve: Trace regurgitation. - Left atrium: The atrium was mildly dilated. - Pericardium, extracardiac: A trivial pericardial effusion was identified posterior to the heart. If LV function is below 40, please consider prescribing an ACEI or ARB or document rationale for non-use. PROCEDURE DATA STUDY STATUS: Elective. Procedure: Transthoracic echocardiography. Image quality was adequate. Scanning was performed from the parasternal, apical, and subcostal acoustic windows. Study completion: The patient tolerated the procedure well. Transthoracic echocardiography. M-mode, complete 2D, complete spectral Doppler, and color Doppler. Patient status: Inpatient. CARDIAC ANATOMY LEFT VENTRICLE: The cavity size was normal. Wall thickness was normal. Systolic function was normal. The estimated ejection fraction was in the range of 55% to 60%. Wall motion was normal; there were no regional wall motion abnormalities. AORTIC VALVE: Trileaflet; mildly thickened leaflets. Doppler: Transvalvular velocity was within the normal range. There was no stenosis. Trace regurgitation. AORTA: Aortic root: The aortic root was normal in size. MITRAL VALVE: Structurally normal valve. Doppler: Transvalvular velocity was within the normal range. There was no evidence for stenosis. No regurgitation. Peak gradient: 3mm Hg (D). LEFT ATRIUM: The atrium was mildly dilated. RIGHT VENTRICLE: The cavity size was normal. Wall thickness was normal. PULMONIC VALVE: Poorly visualized. Doppler: Transvalvular velocity was within the normal range. There was no evidence for stenosis. Trace to mild regurgitation. TRICUSPID VALVE: Structurally normal valve. Doppler: Transvalvular velocity was within the normal range. Trace to mild regurgitation. PULMONARY ARTERY: The main pulmonary artery was normal-sized. Systolic pressure was within the normal range. RIGHT ATRIUM: The atrium was normal in size. PERICARDIUM: A trivial pericardial effusion was identified posterior to the heart. SYSTEMIC VEINS: Inferior vena cava: The vessel was normal in size. BASIC MEASUREMENTS ADULT NORMAL Left ventricle LV internal dimension, ED, chordal level, 47.3 mm 43-52 PLAX LV posterior wall thickness, ED 8.43 mm IVS/LVPW ratio, ED 1.27 <1.3 Ventricular septum Septal thickness, ED 10.7 mm Aortic valve Leaflet separation 26 mm 15-26 Left atrium Anterior-posterior dimension 43 mm Right ventricle RV internal dimension, ED, PLAX 29.9 mm 19-38 BASIC MEASUREMENTS ADULT NORMAL Aortic valve Leaflet separation 26 mm 15-26 Aorta Root diameter, ED 34 mm 20-37 DOPPLER MEASUREMENTS ADULT NORMAL Main pulmonary artery Pressure, S 18 mm Hg =30 Mitral valve Peak E-wave velocity 80.9 cm/s Peak A-wave velocity 49.4 cm/s Peak gradient, D 3 mm Hg Peak E/A ratio 1.6 Tricuspid valve Regurgitant peak velocity 141 cm/s Peak RV-RA gradient, S 8 mm Hg Maximal regurgitant velocity 141 cm/s Systemic veins Estimated CVP 10 mm Hg Right ventricle RV pressure, S 18 mm Hg <30 LEGEND: Mean values are shown as u=mean value. Asterisk (*) may values outside specified normal range. Prepared and signed by Kamari Molina [id number]
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
[2016-03-09] VITALS (20 sets, daily range): BP systolic 98–116; BP diastolic 56–77; PULSE 75–111; RESP 16–25; TEMP 99.9–101.3; O2SAT 95–100
[2016-03-09] MEDS: RESP: ALBUTEROL 2.5 MG/IPRATROPIUM 0.5 MG NEB (SCH) NEB ×2 (03:42→10:12)
[2016-03-09 05:07] LABS: BLOOD GAS BASE EXCESS 1.4 mmol/L (-2-2); BLOOD GAS CARBOXYHEMOGLOBIN 1.2 % (0-4); BLOOD GAS HCO3 25 mmol/L (22-26); BLOOD GAS METHEMOGLOBIN 0.9 % (0-2); BLOOD GAS O2 HGB SATURATION 96 % (90-100); BLOOD GAS OXYGEN CONTENT 14.2 Vol % (12.0-20.0); BLOOD GAS PCO2 39 mmHg (38-42); BLOOD GAS PO2 107 mmHg (61-120); BLOOD GAS TOTAL HGB 10.4 G/DL (12.0-16.0); CRITICAL VALUE NO; DRAW SITE RT BRACHIAL; FIO2 45 %; NUMBER OF ARTERIAL PUNCTURES 1; OXYGEN DEVICE VENTILATOR; STAT NO; TEMP CORR TO 98.6; VENT SETTINGS PRVC/AC
[2016-03-09] MEDS: IBUPROFEN 600 MG TAB PO SCH ×3 (05:23→22:05)
--- NOTE | 2016-03-09 05:36 | RADRPT ---
EXAM DATE/TIME: 03/09/2016 04:16 [facility] COMPARISON: CHEST SINGLE AP, March 08, 2016, 4:40. INDICATIONS : Shortness of breath, possible pulmonary disease. MEDICAL HISTORY : None. SURGICAL HISTORY : None. ENCOUNTER: Subsequent ACUITY: 3 weeks PAIN SCORE: Non-responsive. LOCATION: Bilateral chest FINDINGS: Tracheostomy and PICC line in place. Metallic tip feeding tube projects in the stomach. There is pe rsistent consolidation left mid and lower lung with loss of delineation of the entire left hemidiaphr agm. The right lung is clear. CONCLUSION: Persistent left lower lobe consolidation. Vincent Bo MD on March 09, 2016 at 5:33 Board Certified Radiologist. This report was verified electronically.
[2016-03-09 05:55] LABS: AUTOMATED NEUTROPHIL # 8.6 TH/MM3 (1.8-7.7); BASOPHIL # 0.1 TH/MM3 (0-0.2); EOSINOPHIL # 0.6 TH/MM3 (0-0.4); EOSINOPHIL % 4.7 % (0.0-4.0); HEMATOCRIT 29.4 % (39.0-51.0); LYMPH % 12.7 % (9.0-44.0); LYMPHOCYTE # 1.6 TH/MM3 (1.0-4.8); MEAN CELL VOLUME 86.5 FL (80.0-100.0); MEAN CORPUSCULAR HGB CONC 34.6 % (32.0-36.0); NEUT % 69.6 % (16.0-70.0); PLATELET COUNT 768 TH/MM3 (150-450); RED CELL DISTRIBUTION WIDTH 14.6 % (11.6-17.2); RETIC % 4.1 % (0.4-3.0); WHITE BLOOD COUNT 12.3 TH/MM3 (4.0-11.0)
[2016-03-09 06:06] LABS: HEMO FLAGS AUTO DIFF; REVIEW FLAG AUTO DIFF
[2016-03-09 06:10] LABS: BICARBONATE 25.9 MEQ/L (21.0-32.0); INDIRECT BILIRUBIN 0.4 MG/DL (0.0-0.8); POTASSIUM 4.1 MEQ/L (3.5-5.1); TOTAL BILIRUBIN ADULT 0.7 MG/DL (0.2-1.0)
[2016-03-09 08:19] LABS: BANDS 3 % (0-6); EOSINOPHILS 6 % (0-4); METAMYELOCYTES 1 % (0-1); MYELOCYTES 3 % (0-0); NEUTROPHIL # MANUAL DIFF 9.5 TH/MM3 (1.8-7.7); PLATELET ESTIMATE SMEAR HIGH (NORMAL); PLATELET MORPHOLOGY NORMAL (NORMAL); POLYS (SEG NEUTROPHILS) 70 % (16-70); SCAN/DIFF FINAL DIFF MANUAL; WBC DIFF SAMPLE 100
[2016-03-09] MEDS: CHLORHEXIDINE 0.12% (ORAL KIT) 15 ML CUP MT SCH ×2 (08:45→20:00)
[2016-03-09] MEDS: DOCUSATE SODIUM 100 MG CAP PO SCH ×2 (08:46→20:11)
[2016-03-09] MEDS: SODIUM CHLORIDE 0.9% FLUSH 5 ML FLUSH IVF SCH ×2 (08:46→20:11)
[2016-03-09] MEDS: MAGNESIUM HYDROXIDE SUSP 30 ML CUP PO SCH (08:46)
[2016-03-09] MEDS: QUEtiapine FUMARATE 25 MG TAB PO SCH ×2 (08:47→20:11)
[2016-03-09] MEDS: ENOXAPARIN SODIUM 30 MG/0.3 ML SYRINGE SQ SCH ×2 (08:47→20:11)
[2016-03-09] MEDS: RESP: TOBRAMYCIN SULFATE 80 MG/2 ML NEB NEB SCH ×2 (09:32→19:48)
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
[2016-03-09] MEDS: oxyCODONE HCL ORAL CONC 20 MG/ML SYRINGE PO PRN ×2 (14:00→22:05)
[2016-03-09] MEDS: LEVOFLOXACIN 750 MG PREMIX INJ 150 ML IV SCH (15:32)
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
[2016-03-09] MEDS: RESP: ALBUTEROL 2.5 MG/IPRATROPIUM 0.5 MG NEB (PRN) NEB ×2 (16:42→21:14)
[2016-03-09] MEDS: CEFEPIME INJ 2,000 MG in SODIUM CHLORIDE 0.9% INJ 100 ML IV SCH (16:48)
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
[2016-03-09] MEDS: MEPERIDINE HCL 25 MG/ML VIAL IV PRN (20:03)
[2016-03-10] VITALS (16 sets, daily range): BP systolic 109–120; BP diastolic 61–70; PULSE 72–116; RESP 16–33; TEMP 99.6–100.7; O2SAT 94–100
[2016-03-10] MEDS: CEFEPIME INJ 2,000 MG in SODIUM CHLORIDE 0.9% INJ 100 ML IV SCH ×3 (00:33→17:44)
[2016-03-10] MEDS: oxyCODONE HCL ORAL CONC 20 MG/ML SYRINGE PO PRN ×5 (02:19→21:39)
[2016-03-10] MEDS: RESP: ALBUTEROL 2.5 MG/IPRATROPIUM 0.5 MG NEB (PRN) NEB ×2 (03:58→07:45)
[2016-03-10] MEDS: IBUPROFEN 600 MG TAB PO SCH ×4 (05:29→22:00)
[2016-03-10] MEDS: MAGNESIUM HYDROXIDE SUSP 30 ML CUP PO SCH (08:59)
[2016-03-10] MEDS: ENOXAPARIN SODIUM 30 MG/0.3 ML SYRINGE SQ SCH ×2 (08:59→20:22)
[2016-03-10] MEDS: QUEtiapine FUMARATE 25 MG TAB PO SCH ×2 (09:00→20:22)
[2016-03-10] MEDS: SODIUM CHLORIDE 0.9% FLUSH 5 ML FLUSH IVF SCH ×2 (09:00→20:22)
[2016-03-10] MEDS: DOCUSATE SODIUM 100 MG CAP PO SCH ×2 (09:00→20:22)
[2016-03-10] MEDS: CHLORHEXIDINE 0.12% (ORAL KIT) 15 ML CUP MT SCH ×2 (09:47→20:00)
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
[2016-03-10] MEDS: LEVOFLOXACIN 750 MG PREMIX INJ 150 ML IV SCH (15:50)
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
[2016-03-10] MEDS: RESP: TOBRAMYCIN SULFATE 80 MG/2 ML NEB NEB SCH (20:05)
[2016-03-10] MEDS: traZODone HCL 50 MG TAB PO SCH (20:22)
[2016-03-11] VITALS (11 sets, daily range): BP systolic 109–140; BP diastolic 59–79; PULSE 94–116; RESP 28–32; TEMP 98.5–101; O2SAT 97–100
[2016-03-11] MEDS: CEFEPIME INJ 2,000 MG in SODIUM CHLORIDE 0.9% INJ 100 ML IV SCH ×2 (01:26→09:20)
[2016-03-11] MEDS: oxyCODONE HCL ORAL CONC 20 MG/ML SYRINGE PO PRN ×4 (01:26→20:00)
[2016-03-11] MEDS: IBUPROFEN 600 MG TAB PO SCH ×3 (05:07→22:00)
[2016-03-11 06:19] LABS: HEMATOCRIT 30.9 % (39.0-51.0); MEAN CELL VOLUME 86.7 FL (80.0-100.0); MEAN CORPUSCULAR HEMOGLOBIN 28.6 PG (27.0-34.0); PLATELET COUNT 778 TH/MM3 (150-450); RED BLOOD COUNT 3.56 MIL/MM3 (4.50-5.90); REVIEW FLAG FINAL
--- NOTE | 2016-03-11 06:21 | RADRPT ---
EXAM DATE/TIME: 03/11/2016 05:13 [place] COMPARISON: CHEST SINGLE AP, March 09, 2016, 4:16. INDICATIONS : Short of breath. MEDICAL HISTORY : None. SURGICAL HISTORY : None. ENCOUNTER: Subsequent ACUITY: 3 weeks PAIN SCORE: Non-responsive. LOCATION: Bilateral chest FINDINGS: A single view of the chest demonstrates persistent left basal consolidation. Minimal patchy densities right lower lobe. Dobbhoff tube with tip in stomach. Tracheostomy tube unchanged. The cardiomediasti nal contours are unremarkable. Plate and screws along the upper thoracic spine. Right clavicle fractu re. CONCLUSION: Persistent left basilar consolidation. Minimal patchy densities right lower lobe. Magdiel Brar MD on March 11, 2016 at 6:18 Board Certified Radiologist. This report was verified electronically.
[2016-03-11 06:40] LABS: MAGNESIUM 2.1 MG/DL (1.5-2.5)
[2016-03-11] MEDS: RESP: TOBRAMYCIN SULFATE 80 MG/2 ML NEB NEB SCH ×2 (07:49→20:41)
[2016-03-11] MEDS: RESP: ALBUTEROL 2.5 MG/IPRATROPIUM 0.5 MG NEB (PRN) NEB (07:49)
[2016-03-11] MEDS: MAGNESIUM HYDROXIDE SUSP 30 ML CUP PO SCH (09:00)
[2016-03-11] MEDS: SODIUM CHLORIDE 0.9% FLUSH 5 ML FLUSH IVF SCH ×2 (09:00→20:26)
[2016-03-11] MEDS: DOCUSATE SODIUM 100 MG CAP PO SCH ×2 (09:12→20:55)
[2016-03-11] MEDS: ENOXAPARIN SODIUM 30 MG/0.3 ML SYRINGE SQ SCH ×2 (09:13→20:55)
[2016-03-11] MEDS: QUEtiapine FUMARATE 25 MG TAB PO SCH ×2 (09:13→20:55)
[2016-03-11] MEDS: CHLORHEXIDINE 0.12% (ORAL KIT) 15 ML CUP MT SCH ×2 (09:13→20:00)
--- NOTE | 2016-03-11 09:53 | PD.ONC.PN ---
Subjective Subjective Remarks Tmax 100.7 overnight. Patient with fiance at bedside. He complains of headache and back pain. per RT, O2 needs have reduced and he is now only requiring 6L via T-piece. Objective Data Date Time Temp Pulse Resp B/P Pulse Ox O2 Delivery O2 Flow Rate FiO2 03/11/16 08:03 97 T-piece 6.00 35 03/11/16 06:00 116 03/11/16 04:00 100.3 28 111/63 100 03/11/16 02:00 98 03/11/16 00:00 108 03/11/16 00:00 40 03/11/16 00:00 98.5 108 31 109/59 100 03/10/16 22:00 116 03/10/16 20:00 109 03/10/16 20:00 40 03/10/16 20:00 100.7 109 32 109/67 100 03/10/16 18:00 114 03/10/16 16:00 40 03/10/16 16:00 99.6 115 30 112/61 98 03/10/16 16:00 115 03/10/16 15:49 97 T-piece 50 03/10/16 14:00 104 03/10/16 12:00 40 03/10/16 12:00 85 03/10/16 12:00 100.0 85 33 120/68 100 03/10/16 10:00 101 03/11/16 03/11/16 03/11/16 07:00 15:00 23:00 Intake Total 775 ml Output Total 900 ml Balance -125 ml Result Diagram: 03/11/16 0555 03/11/16 0555 Laboratory Results Laboratory Tests Test 03/11/16 05:55 White Blood Count 13.0 TH/MM3 Red Blood Count 3.56 MIL/MM3 Hemoglobin 10.2 GM/DL Hematocrit 30.9 % Mean Corpuscular Volume 86.7 FL Mean Corpuscular Hemoglobin 28.6 PG Mean Corpuscular Hemoglobin 33.0 % Concent Red Cell Distribution Width 14.0 % Platelet Count 778 TH/MM3 Mean Platelet Volume 7.5 FL Sodium Level 136 MEQ/L Potassium Level 4.0 MEQ/L Chloride Level 102 MEQ/L Carbon Dioxide Level 27.0 MEQ/L Anion Gap 7 MEQ/L Blood Urea Nitrogen 17 MG/DL Creatinine 0.71 MG/DL Estimat Glomerular Filtration 165 ML/MIN Rate Random Glucose 122 MG/DL Calcium Level 9.1 MG/DL Magnesium Level 2.1 MG/DL Imaging Studies Last 24 hours Impressions Chest X-Ray 03/11/16 0600 Signed Impressions: Service Date/Time: Friday, March 11, 2016 05:13 - CONCLUSION: Persistent left basilar consolidation. Minimal patchy densities right lower lobe. Magdiel Brar MD Administered Medications Medications (Trade) Dose Ordered Sig/Joseph Route PRN Reason Start Time Stop Time Status Last Admin Dose Admin IV Flush (NS Flush) 2 ml BID IVF 02/17/16 21:00 03/10/16 20:22 Ondansetron HCl (Zofran Inj) 4 mg Q6H PRN IV NAUSEA OR VOMITING 02/17/16 16:00 03/08/16 11:39 Chlorhexidine Gluconate (Peridex 0.12% Liq) 15 ml BID@08,20 MT 02/17/16 20:00 03/11/16 09:13 Docusate Sodium (Colace) 100 mg BID PO 02/18/16 09:00 03/11/16 09:12 Magnesium Hydroxide 30 ml 30 ml DAILY PO 02/18/16 09:00 03/10/16 08:59 Potassium Chloride 100 ml @ 50 mls/hr Q2H PRN IV For Potassium 2.8 - 3.2 mEq/L 02/22/16 09:30 02/23/16 23:32 Potassium Chloride 100 ml @ 50 mls/hr Q2H PRN IV For Potassium 2.8 - 3.2 mEq/L 02/22/16 09:30 02/23/16 05:10 Potassium Chloride 100 ml @ 25 mls/hr UNSCH PRN IV For Potassium 3.3 - 3.5 mEq/L 02/22/16 09:30 02/22/16 14:39 Potassium Chloride (KCl 20 Meq Premix Inj) 100 ml @ 50 mls/hr Q2H PRN IV For Potassium 3.3 - 3.5 mEq/L 02/22/16 09:30 02/23/16 11:37 Magnesium Oxide (Mag-Ox) 800 mg UNSCH PRN PO For Magnesium 1.2 - 1.6 mg/dL 02/22/16 09:30 02/23/16 11:36 Acetaminophen (Ofirmev Inj) 1,000 mg Q6H PRN IV FOR FEVER 02/23/16 05:00 03/07/16 00:55 IV Flush (NS Flush) See Protocol DAILY IVF 02/26/16 09:00 03/11/16 09:12 Heparin Sodium (Porcine) (Heparin Central Flush) See Protocol DAILY IVF 02/26/16 09:00 03/11/16 09:12 Enoxaparin Sodium (Lovenox Inj) 30 mg BID SQ 03/01/16 21:00 03/11/16 09:13 Meperidine HCl 25 mg 25 mg Q6H PRN IV SHIVERING 03/05/16 10:30 03/09/16 20:03 Levofloxacin/ Dextrose (Levaquin 750 Mg Premix Inj) 150 ml @ 100 mls/hr Q24H IV 03/05/16 16:00 03/10/16 15:50 Oxycodone HCl (Roxicodone Intensol Liq) 10 mg Q4H PRN PO pain 7-10 03/06/16 10:45 03/11/16 09:20 Quetiapine Fumarate (SEROquel) 50 mg BID PO 03/06/16 21:00 03/11/16 09:13 Ibuprofen 600 mg 600 mg Q8HR PO 03/08/16 15:00 03/11/16 05:07 Cefepime HCl/ Sodium Chloride (Maxipime Inj/NS Inj) 100 ml @ 200 mls/hr Q8H IV 03/09/16 17:00 03/11/16 09:20 Trazodone HCl (Desyrel) 50 mg HS PO 03/10/16 21:00 03/10/16 20:22 Objective Remarks GENERAL: Chronically ill appearing young man, sitting up in bed, fiance at bedside. SKIN: Warm and dry. HEAD: Normocephalic. Dobhoff, right nare. EYES: No injection or drainage. NECK: Supple, trachea midline. on 6L O2 via t-piece CARDIOVASCULAR: +S1/S2, tachy RESPIRATORY: diminished at bases. anterior bowen clear. GASTROINTESTINAL: Abdomen soft, non-tender, nondistended. EXTREMITIES: No cyanosis NEUROLOGICAL: awake. follows commands. does not answer questions. Assessment/Plan Problem List: (1) Encounter for sickle-cell screening Status: Acute Plan: --no evidence of hemolysis --hgb stable --awaiting hgb electrophoresis. --retic count mildly elevated --LDH elevated Assessment 25y/o male trauma alert. Hematology consulted for + sickle cell screen. Hemoglobin electrophoresis remains pending. h/o T2-6 posterior spinal instrumentation with percutaneous pedicle screw fixation. T2-6 posterolateral fusion with local autografts. Bilateral T3-4 decompressive laminectomy, microtechnique. Open reduction internal fixation. Thoracic spine T2-6 segmental spinal fixation instrumentation. Bronchoscopy. Tracheostomy. Central line placement. Plan 1. await hemoglobin electrophoresis. 2. monitor CBC, bilirubin. no sign of hemolysis. Morelia Miller Mar 11, 2016 09:53
[2016-03-11] MEDS ORDERED: MAGNESIUM HYDROXIDE SUSP 30 ML CUP PO PRN (10:00)
[2016-03-11] MEDS: ACETAMINOPHEN 1000 MG/100 ML VIAL IV PRN (10:53)
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
[2016-03-11] MEDS: LEVOFLOXACIN 750 MG PREMIX INJ 150 ML IV SCH (16:39)
[2016-03-11] MEDS: traZODone HCL 50 MG TAB PO SCH (20:55)
[2016-03-12] VITALS (14 sets, daily range): BP systolic 105–142; BP diastolic 58–73; PULSE 92–112; RESP 26–33; TEMP 99.1–100.2; O2SAT 97–100
[2016-03-12] MEDS: IBUPROFEN 600 MG TAB PO SCH ×2 (05:42→20:29)
[2016-03-12] MEDS: CHLORHEXIDINE 0.12% (ORAL KIT) 15 ML CUP MT SCH ×2 (08:00→20:00)
[2016-03-12] MEDS: RESP: TOBRAMYCIN SULFATE 80 MG/2 ML NEB NEB SCH ×2 (08:00→20:00)
[2016-03-12] MEDS: QUEtiapine FUMARATE 25 MG TAB PO SCH ×2 (08:30→20:29)
[2016-03-12] MEDS: DOCUSATE SODIUM 100 MG CAP PO SCH ×2 (08:30→20:29)
[2016-03-12] MEDS: SODIUM CHLORIDE 0.9% FLUSH 5 ML FLUSH IVF SCH ×2 (08:31→20:29)
[2016-03-12] MEDS: ENOXAPARIN SODIUM 30 MG/0.3 ML SYRINGE SQ SCH ×2 (08:32→20:30)
[2016-03-12] MEDS: oxyCODONE HCL ORAL CONC 20 MG/ML SYRINGE PO PRN ×4 (08:39→22:59)
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
[2016-03-12] MEDS: LEVOFLOXACIN 750 MG PREMIX INJ 150 ML IV SCH (15:25)
[2016-03-12] MEDS: traZODone HCL 50 MG TAB PO SCH (20:29)
[2016-03-12] MEDS: ACETAMINOPHEN 1000 MG/100 ML VIAL IV PRN (22:59)
[2016-03-13] VITALS (8 sets, daily range): BP systolic 103–116; BP diastolic 54–75; PULSE 76–101; RESP 20–28; TEMP 98.2–102.5; O2SAT 96–100
[2016-03-13] MEDS: CHLORHEXIDINE 0.12% (ORAL KIT) 15 ML CUP MT SCH ×2 (08:00→20:00)
[2016-03-13 08:23] LABS: CRITICAL VALUE YES
[2016-03-13] MEDS: RESP: TOBRAMYCIN SULFATE 80 MG/2 ML NEB NEB SCH ×2 (08:52→20:00)
[2016-03-13] MEDS: ENOXAPARIN SODIUM 30 MG/0.3 ML SYRINGE SQ SCH ×2 (09:00→20:20)
[2016-03-13] MEDS: QUEtiapine FUMARATE 25 MG TAB PO SCH ×2 (09:00→20:20)
[2016-03-13] MEDS: IBUPROFEN 600 MG TAB PO SCH ×2 (09:00→20:20)
[2016-03-13] MEDS: SODIUM CHLORIDE 0.9% FLUSH 5 ML FLUSH IVF SCH ×2 (09:00→20:20)
[2016-03-13] MEDS: DOCUSATE SODIUM 100 MG CAP PO SCH ×2 (09:00→20:20)
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
[2016-03-13] MEDS: LEVOFLOXACIN 750 MG PREMIX INJ 150 ML IV SCH (16:00)
[2016-03-13 18:53] LABS: HEMOGLOBIN A 67.8 % (95.8-98.0); HEMOGLOBIN A2 3.1 % (2.0-3.3)
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
[2016-03-13] MEDS: traZODone HCL 50 MG TAB PO SCH (20:20)
[2016-03-13] MEDS: ACETAMINOPHEN 1000 MG/100 ML VIAL IV PRN (21:26)
[2016-03-14] VITALS (8 sets, daily range): BP systolic 104–116; BP diastolic 52–69; PULSE 70–104; RESP 18–25; TEMP 98.9–100.8; O2SAT 98–100
[2016-03-14] MEDS: RESP: TOBRAMYCIN SULFATE 80 MG/2 ML NEB NEB SCH ×2 (08:00→20:08)
[2016-03-14] MEDS: CHLORHEXIDINE 0.12% (ORAL KIT) 15 ML CUP MT SCH ×2 (08:47→20:00)
[2016-03-14] MEDS: SODIUM CHLORIDE 0.9% FLUSH 5 ML FLUSH IVF SCH ×2 (08:48→20:27)
[2016-03-14] MEDS: QUEtiapine FUMARATE 25 MG TAB PO SCH ×2 (08:48→20:26)
[2016-03-14] MEDS: DOCUSATE SODIUM 100 MG CAP PO SCH ×2 (08:48→20:26)
[2016-03-14] MEDS: ENOXAPARIN SODIUM 30 MG/0.3 ML SYRINGE SQ SCH ×2 (08:48→20:26)
[2016-03-14] MEDS: IBUPROFEN 600 MG TAB PO SCH ×2 (08:49→20:26)
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
[2016-03-14] MEDS: ONDANSETRON HCL 4 MG/2 ML VIAL IV PRN (14:15)
[2016-03-14] MEDS: oxyCODONE HCL ORAL CONC 20 MG/ML SYRINGE PO PRN (14:15)
[2016-03-14] MEDS: LEVOFLOXACIN 750 MG PREMIX INJ 150 ML IV SCH (14:15)
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
[2016-03-14] MEDS: traZODone HCL 50 MG TAB PO SCH (20:26)
[2016-03-15] VITALS (8 sets, daily range): BP systolic 99–111; BP diastolic 55–60; PULSE 76–100; RESP 17–30; TEMP 98.9–99.6; O2SAT 95–100
[2016-03-15 07:00] LABS: BICARBONATE 30.5 MEQ/L (21.0-32.0); MAGNESIUM 1.8 MG/DL (1.5-2.5); POTASSIUM 3.8 MEQ/L (3.5-5.1)
[2016-03-15 07:09] LABS: HEMATOCRIT 31.8 % (39.0-51.0); MEAN CELL VOLUME 86.1 FL (80.0-100.0); MEAN CORPUSCULAR HEMOGLOBIN 28.8 PG (27.0-34.0); MEAN CORPUSCULAR HGB CONC 33.5 % (32.0-36.0); PLATELET COUNT 735 TH/MM3 (150-450); RED BLOOD COUNT 3.69 MIL/MM3 (4.50-5.90); REVIEW FLAG FINAL; WHITE BLOOD COUNT 9.8 TH/MM3 (4.0-11.0)
[2016-03-15] MEDS: CHLORHEXIDINE 0.12% (ORAL KIT) 15 ML CUP MT SCH ×2 (07:24→20:00)
[2016-03-15] MEDS: DOCUSATE SODIUM 100 MG CAP PO SCH ×2 (07:25→20:48)
[2016-03-15] MEDS: ENOXAPARIN SODIUM 30 MG/0.3 ML SYRINGE SQ SCH ×2 (07:25→20:48)
[2016-03-15] MEDS: IBUPROFEN 600 MG TAB PO SCH ×2 (07:25→20:48)
[2016-03-15] MEDS: QUEtiapine FUMARATE 25 MG TAB PO SCH ×2 (07:25→20:48)
[2016-03-15] MEDS: SODIUM CHLORIDE 0.9% FLUSH 5 ML FLUSH IVF SCH ×2 (07:27→20:49)
[2016-03-15] MEDS: RESP: TOBRAMYCIN SULFATE 80 MG/2 ML NEB NEB SCH ×2 (08:03→19:36)
[2016-03-15] MEDS: LEVOFLOXACIN 750 MG PREMIX INJ 150 ML IV SCH (14:23)
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
[2016-03-15] MEDS: traZODone HCL 50 MG TAB PO SCH (20:48)
[2016-03-16] VITALS (10 sets, daily range): BP systolic 99–120; BP diastolic 55–67; PULSE 76–106; RESP 20–30; TEMP 98.8–99.4; O2SAT 96–100
[2016-03-16] MEDS: RESP: TOBRAMYCIN SULFATE 80 MG/2 ML NEB NEB SCH ×2 (07:44→20:26)
[2016-03-16] MEDS: SODIUM CHLORIDE 0.9% FLUSH 5 ML FLUSH IVF SCH ×2 (09:20→20:32)
[2016-03-16] MEDS: CHLORHEXIDINE 0.12% (ORAL KIT) 15 ML CUP MT SCH ×2 (09:20→20:00)
[2016-03-16] MEDS: IBUPROFEN 600 MG TAB PO SCH ×2 (09:20→20:33)
[2016-03-16] MEDS: QUEtiapine FUMARATE 25 MG TAB PO SCH ×2 (09:21→20:32)
[2016-03-16] MEDS: ENOXAPARIN SODIUM 30 MG/0.3 ML SYRINGE SQ SCH ×2 (09:21→20:32)
[2016-03-16] MEDS: DOCUSATE SODIUM 100 MG CAP PO SCH ×2 (09:21→20:32)
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
[2016-03-16] MEDS: oxyCODONE HCL ORAL CONC 20 MG/ML SYRINGE PO PRN (12:00)
[2016-03-16] MEDS: LEVOFLOXACIN 750 MG PREMIX INJ 150 ML IV SCH (16:00)
[2016-03-16] MEDS: traZODone HCL 50 MG TAB PO SCH (20:32)
[2016-03-17] VITALS (9 sets, daily range): BP systolic 105–126; BP diastolic 58–72; PULSE 80–96; RESP 21–27; TEMP 98.4–99.2; O2SAT 96–100
[2016-03-17 04:56] LABS: HEMATOCRIT 32.1 % (39.0-51.0); MEAN CELL VOLUME 86.3 FL (80.0-100.0); MEAN CORPUSCULAR HEMOGLOBIN 29.5 PG (27.0-34.0); MEAN CORPUSCULAR HGB CONC 34.1 % (32.0-36.0); PLATELET COUNT 665 TH/MM3 (150-450); RED BLOOD COUNT 3.72 MIL/MM3 (4.50-5.90); RED CELL DISTRIBUTION WIDTH 13.8 % (11.6-17.2); REVIEW FLAG FINAL; WHITE BLOOD COUNT 10.2 TH/MM3 (4.0-11.0)
[2016-03-17 05:20] LABS: BICARBONATE 29.7 MEQ/L (21.0-32.0); MAGNESIUM 1.7 MG/DL (1.5-2.5); POTASSIUM 3.6 MEQ/L (3.5-5.1)
[2016-03-17] MEDS: RESP: TOBRAMYCIN SULFATE 80 MG/2 ML NEB NEB SCH (07:46)
[2016-03-17] MEDS: CHLORHEXIDINE 0.12% (ORAL KIT) 15 ML CUP MT SCH ×2 (08:00→20:00)
[2016-03-17] MEDS ORDERED: LACTULOSE SYRUP 20 GM/30 ML CUP PO ONE (08:15)
[2016-03-17] MEDS: IBUPROFEN 600 MG TAB PO SCH ×2 (08:59→20:30)
[2016-03-17] MEDS: DOCUSATE SODIUM 100 MG CAP PO SCH ×2 (08:59→20:30)
[2016-03-17] MEDS: QUEtiapine FUMARATE 25 MG TAB PO SCH ×2 (08:59→20:30)
[2016-03-17] MEDS: ENOXAPARIN SODIUM 30 MG/0.3 ML SYRINGE SQ SCH ×2 (08:59→20:30)
[2016-03-17] MEDS: SODIUM CHLORIDE 0.9% FLUSH 5 ML FLUSH IVF SCH ×2 (09:00→20:55)
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
[2016-03-17] MEDS: MAGNESIUM HYDROXIDE SUSP 30 ML CUP PO SCH (20:30)
[2016-03-17] MEDS: traZODone HCL 50 MG TAB PO SCH (20:30)
[2016-03-18] VITALS (10 sets, daily range): BP systolic 99–118; BP diastolic 54–68; PULSE 78–112; RESP 20–23; TEMP 98.7–99.9; O2SAT 92–100
[2016-03-18] MEDS: CHLORHEXIDINE 0.12% (ORAL KIT) 15 ML CUP MT SCH ×2 (08:00→20:00)
[2016-03-18] MEDS: DOCUSATE SODIUM 100 MG CAP PO SCH ×2 (09:00→20:47)
[2016-03-18] MEDS: QUEtiapine FUMARATE 25 MG TAB PO SCH ×2 (10:10→20:47)
[2016-03-18] MEDS: ENOXAPARIN SODIUM 30 MG/0.3 ML SYRINGE SQ SCH ×2 (10:10→20:47)
[2016-03-18] MEDS: SODIUM CHLORIDE 0.9% FLUSH 5 ML FLUSH IVF SCH ×2 (10:11→20:48)
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
--- NOTE | 2016-03-18 14:37 | RADRPT ---
EXAM DATE/TIME: 03/18/2016 12:50 [facility] COMPARISON: MRI THORACIC SPINE W/O CONTRAST, February 22, 2016, 10:27. CT THORAX W CONTRAST, March 07, 2016, 1 6:14. INDICATIONS: Trauma. Right arm weakness. MEDICAL HISTORY: Sickle Cell disease. SURGICAL HISTORY: Fusion, thoracic. ENCOUNTER: Subsequent ACUITY: 1 month PAIN SCORE: 2/10 LOCATION: Neck TECHNIQUE: Multiplanar, multisequence MRI examination of the cervical spine was performed. FINDINGS: VERTEBRAE: The cervical vertebral bodies are normal in height and normally aligned. The patient has surgical mckinley rdware in the upper thoracic spine at the T2 and T3 levels. ALIGNMENT: No evidence of subluxation. CORD: there is abnormal signal seen throughout the cord starting at the C6-7 level and extending into the u pper thoracic spine. These areas did demonstrate abnormal signal on the prior thoracic spine MRI exa mination. POST FOSSA: The cerebellar tonsils are normal in position. C2-C3: The thecal sac has a normal configuration. There is no evidence of disc herniation or spinal canal s tenosis. The neural foramina are patent bilaterally. C3-C4: The thecal sac has a normal configuration. There is no evidence of disc herniation or spinal canal s tenosis. The neural foramina are patent bilaterally. C4-C5: The thecal sac has a normal configuration. There is no evidence of disc herniation or spinal canal s tenosis. The neural foramina are patent bilaterally. C5-C6: The thecal sac has a normal configuration. There is no evidence of disc herniation or spinal canal s tenosis. The neural foramina are patent bilaterally. C6-C7: The thecal sac has a normal configuration. There is no evidence of disc herniation or spinal canal s tenosis. The neural foramina are patent bilaterally. Again noted is the abnormal signal seen throug hout the cord. C7-T1: The thecal sac has a normal configuration. There is no evidence of disc herniation or spinal canal s tenosis. The neural foramina are patent bilaterally. Again noted is the abnormal signal seen throug hout the cord. CONCLUSION: Abnormal signal in the cord beginning at the C6-7 level and extending inferiorly int o the thoracic spine. There is surgical hardware in the upper thoracic spine. Kuldip Weston MD on March 18, 2016 at 14:01 Board Certified Radiologist. This report was verified electronically.
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
[2016-03-18] MEDS: traZODone HCL 50 MG TAB PO SCH (20:47)
[2016-03-18] MEDS: IBUPROFEN 600 MG TAB PO SCH ×2 (20:47→21:00)
[2016-03-18] MEDS: MAGNESIUM HYDROXIDE SUSP 30 ML CUP PO SCH (20:48)
[2016-03-19] VITALS (9 sets, daily range): BP systolic 104–124; BP diastolic 60–77; PULSE 85–110; RESP 18–20; TEMP 97.1–100.5; O2SAT 93–98
[2016-03-19] MEDS: CHLORHEXIDINE 0.12% (ORAL KIT) 15 ML CUP MT SCH ×2 (08:00→20:00)
[2016-03-19] MEDS: IBUPROFEN 600 MG TAB PO SCH ×2 (09:21→21:31)
[2016-03-19] MEDS: DOCUSATE SODIUM 100 MG CAP PO SCH ×2 (09:21→21:30)
[2016-03-19] MEDS: QUEtiapine FUMARATE 25 MG TAB PO SCH ×2 (09:21→21:30)
[2016-03-19] MEDS: ENOXAPARIN SODIUM 30 MG/0.3 ML SYRINGE SQ SCH ×2 (09:22→21:31)
[2016-03-19] MEDS: SODIUM CHLORIDE 0.9% FLUSH 5 ML FLUSH IVF SCH ×2 (09:22→21:31)
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
[2016-03-19] MEDS: MAGNESIUM HYDROXIDE SUSP 30 ML CUP PO SCH (21:00)
[2016-03-19] MEDS: traZODone HCL 50 MG TAB PO SCH (21:30)
[2016-03-19] MEDS: FAMOTIDINE 20 MG TAB PO SCH (21:30)
[2016-03-20] VITALS (9 sets, daily range): BP systolic 106–133; BP diastolic 65–76; PULSE 81–107; RESP 16–20; TEMP 96.7–100.6; O2SAT 93–99
[2016-03-20] MEDS: CHLORHEXIDINE 0.12% (ORAL KIT) 15 ML CUP MT SCH ×2 (08:00→20:00)
[2016-03-20] MEDS: ENOXAPARIN SODIUM 30 MG/0.3 ML SYRINGE SQ SCH ×2 (08:39→20:28)
[2016-03-20] MEDS: IBUPROFEN 600 MG TAB PO SCH ×2 (08:39→20:28)
[2016-03-20] MEDS: QUEtiapine FUMARATE 25 MG TAB PO SCH ×2 (08:39→20:27)
[2016-03-20] MEDS: DOCUSATE SODIUM 100 MG CAP PO SCH ×2 (08:39→20:26)
[2016-03-20] MEDS: SODIUM CHLORIDE 0.9% FLUSH 5 ML FLUSH IVF SCH ×2 (08:40→20:28)
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
[2016-03-20] MEDS ORDERED: LACTULOSE SYRUP 20 GM/30 ML CUP PO ONE (12:00)
[2016-03-20] MEDS: ONDANSETRON HCL 4 MG/2 ML VIAL IV PRN (12:53)
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
[2016-03-20] MEDS: FAMOTIDINE 20 MG TAB PO SCH (20:27)
[2016-03-20] MEDS: MAGNESIUM HYDROXIDE SUSP 30 ML CUP PO SCH (20:27)
[2016-03-20] MEDS: traZODone HCL 50 MG TAB PO SCH (20:28)
[2016-03-21] VITALS: BP 108/58; PULSE 86; RESP 21; TEMP 97.3; O2SAT 98
[2016-03-21] MEDS: oxyCODONE HCL ORAL CONC 20 MG/ML SYRINGE PO PRN ×2 (06:23→21:41)
--- NOTE | 2016-03-21 07:13 | RADRPT ---
EXAM DATE/TIME: 03/21/2016 06:14 [facility] COMPARISON: CHEST SINGLE AP, March 11, 2016, 5:13. INDICATIONS : Short of breath, congestion, evaluate infiltrates MEDICAL HISTORY : closed head injury SURGICAL HISTORY : tracheostomy, thoracic spine ENCOUNTER: Subsequent ACUITY: 3 weeks PAIN SCORE: Non-responsive. LOCATION: Bilateral chest FINDINGS: There is a tracheostomy tube in place. There is total opacification of the left hemithorax. This find ing is new. The right lung appears clear. Surgical hardware is seen in the upper thoracic spine. Ther e is a fractured right clavicle. There is a PICC line placed from the right arm. CONCLUSION: New total opacification of left hemithorax. Left lung atelectasis from processes such as mucous plugg ing or effusion could have this appearance. This information was called to the floor and given to Trixie, the patient's nurse. Kuldip Weston MD on March 21, 2016 at 7:04 Board Certified Radiologist. This report was verified electronically.
[2016-03-21 08:00] VITALS: BP 96/59; PULSE 87; RESP 20; TEMP 98.2; O2SAT 93
[2016-03-21] MEDS: CHLORHEXIDINE 0.12% (ORAL KIT) 15 ML CUP MT SCH ×2 (08:00→20:00)
[2016-03-21] MEDS: DOCUSATE SODIUM 100 MG CAP PO SCH ×2 (08:20→21:40)
[2016-03-21] MEDS: ENOXAPARIN SODIUM 30 MG/0.3 ML SYRINGE SQ SCH ×2 (08:20→21:38)
[2016-03-21] MEDS: IBUPROFEN 600 MG TAB PO SCH ×2 (08:20→21:40)
[2016-03-21] MEDS: QUEtiapine FUMARATE 25 MG TAB PO SCH ×2 (08:20→21:40)
[2016-03-21] MEDS: LACTULOSE SYRUP 20 GM/30 ML CUP PO SCH (08:20)
[2016-03-21] MEDS: SODIUM CHLORIDE 0.9% FLUSH 5 ML FLUSH IVF SCH ×2 (08:21→21:41)
[2016-03-21 09:09] VITALS: O2SAT 93
[2016-03-21] MEDS ORDERED: NEOSTIGMINE 3 MG/3 ML SYR IV ONE (11:17)
[2016-03-21] MEDS ORDERED: PROPOFOL 200 MG/20 ML AMP IV ONE (11:17)
[2016-03-21] MEDS ORDERED: PHENYLEPH/NS 1000 MCG/10 ML SYR IV ONE (11:17)
[2016-03-21] MEDS: ONDANSETRON HCL 4 MG/2 ML VIAL IV PRN (11:55)
[2016-03-21 12:00] VITALS: BP 103/65; PULSE 96; RESP 20; TEMP 97.8; O2SAT 95
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
[2016-03-21] MEDS ORDERED: DO NOT ADM ANY ANTICOAGULANT DRUGS XX PRN (19:05)
[2016-03-21] MEDS ORDERED: *RESP: ALBUTEROL 2.5 MG/3 ML NEB (PRN) PERIprocedural Use ONLY NEB ONE (19:10)
[2016-03-21] MEDS ORDERED: fentaNYL CITRATE 250 MCG/5 ML AMP ONE (19:10)
[2016-03-21] MEDS ORDERED: *MEPERIDINE 25 MG INJ VIAL PERIprocedural Use ONLY ONE (19:15)
[2016-03-21 20:00] VITALS: BP 116/69; PULSE 79; RESP 18; TEMP 98.6; O2SAT 100
--- NOTE | 2016-03-21 20:36 | RADRPT ---
EXAM DATE/TIME: 03/21/2016 19:31 [facility] COMPARISON: No previous studies available for comparison. INDICATIONS : Post bronchoscopy. MEDICAL HISTORY : closed head injury SURGICAL HISTORY : tracheostomy, thoracic spine fusion ENCOUNTER: Initial ACUITY: 1 day PAIN SCORE: Non-responsive. LOCATION: Bilateral chest FINDINGS: Right PICC line is in superior vena cava. Heart size mildly enlarged. Mild basilar airspace disease. Previous fusion upper thoracic spine. CONCLUSION: 1. Left lung has become aerated since exam from earlier today with some residual basilar airspace dis ease noted. Right PICC line tip is in superior vena cava. Celio Mejía MD on March 21, 2016 at 20:33 Board Certified Radiologist. This report was verified electronically.
[2016-03-21 20:46] VITALS: PULSE 82
[2016-03-21] MEDS: MAGNESIUM HYDROXIDE SUSP 30 ML CUP PO SCH (21:38)
[2016-03-21] MEDS: traZODone HCL 50 MG TAB PO SCH (21:40)
[2016-03-21] MEDS: FAMOTIDINE 20 MG TAB PO SCH (21:40)
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
[2016-03-22] VITALS (9 sets, daily range): BP systolic 97–116; BP diastolic 55–74; PULSE 86–108; RESP 18–22; TEMP 99.1–100.8; O2SAT 94–99
[2016-03-22] MEDS: RESP: ALBUTEROL 2.5 MG/IPRATROPIUM 0.5 MG NEB (PRN) NEB (01:03)
[2016-03-22 04:37] LABS: HEMATOCRIT 32.1 % (39.0-51.0); MEAN CELL VOLUME 85.7 FL (80.0-100.0); MEAN CORPUSCULAR HEMOGLOBIN 29.5 PG (27.0-34.0); MEAN CORPUSCULAR HGB CONC 34.5 % (32.0-36.0); PLATELET COUNT 485 TH/MM3 (150-450); RED BLOOD COUNT 3.75 MIL/MM3 (4.50-5.90); REVIEW FLAG FINAL; WHITE BLOOD COUNT 10.3 TH/MM3 (4.0-11.0)
[2016-03-22 04:49] LABS: BICARBONATE 30.2 MEQ/L (21.0-32.0); POTASSIUM 3.9 MEQ/L (3.5-5.1)
--- NOTE | 2016-03-22 06:15 | RADRPT ---
EXAM DATE/TIME: 03/22/2016 05:41 [facility] COMPARISON: CHEST SINGLE AP, March 21, 2016, 19:31. INDICATIONS : Evaluate after respiratory failure. MEDICAL HISTORY : None. SURGICAL HISTORY : Fusion, thoracic. ENCOUNTER: Subsequent ACUITY: 1 month PAIN SCORE: Non-responsive. LOCATION: Bilateral chest FINDINGS: There is increasing opacity in the left mid and lower lung, now with consolidation and loss of deline ation of portions of the left hemidiaphragm. The right lung is clear. Posterior spinal transpedicul ar screws near the thoracic spine stable. Stable displaced fracture of the midshaft of the right cla vicle. CONCLUSION: Increasing airspace opacity left mid and lower lung. Vincent Bo MD on March 22, 2016 at 6:12 Board Certified Radiologist. This report was verified electronically.
[2016-03-22] MEDS: CHLORHEXIDINE 0.12% (ORAL KIT) 15 ML CUP MT SCH ×2 (07:51→19:28)
[2016-03-22] MEDS: LACTULOSE SYRUP 20 GM/30 ML CUP PO SCH ×2 (09:00→11:42)
[2016-03-22] MEDS: SODIUM CHLORIDE 0.9% FLUSH 5 ML FLUSH IVF SCH ×2 (09:12→19:29)
[2016-03-22] MEDS: IBUPROFEN 600 MG TAB PO SCH ×2 (09:14→19:27)
[2016-03-22] MEDS: DOCUSATE SODIUM 100 MG CAP PO SCH ×2 (09:15→19:27)
[2016-03-22] MEDS: QUEtiapine FUMARATE 25 MG TAB PO SCH ×2 (09:15→19:27)
[2016-03-22] MEDS: ENOXAPARIN SODIUM 30 MG/0.3 ML SYRINGE SQ SCH ×2 (09:16→19:28)
[2016-03-22] MEDS: ONDANSETRON HCL 4 MG/2 ML VIAL IV PRN (09:46)
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
[2016-03-22] MEDS: FAMOTIDINE 20 MG TAB PO SCH (19:27)
[2016-03-22] MEDS: traZODone HCL 50 MG TAB PO SCH (19:27)
[2016-03-22] MEDS: MAGNESIUM HYDROXIDE SUSP 30 ML CUP PO SCH (19:27)
[2016-03-23] VITALS (8 sets, daily range): BP systolic 96–120; BP diastolic 57–74; PULSE 72–104; RESP 19–22; TEMP 97.8–100.9; O2SAT 96–98
[2016-03-23] MEDS: oxyCODONE HCL ORAL CONC 20 MG/ML SYRINGE PO PRN (06:01)
--- NOTE | 2016-03-23 06:56 | RADRPT ---
EXAM DATE/TIME: 03/23/2016 05:01 [facility] COMPARISON: CHEST SINGLE AP, March 22, 2016, 5:41. INDICATIONS : Shortness of breath. MEDICAL HISTORY : None. SURGICAL HISTORY : Fusion, thoracic. ENCOUNTER: Subsequent ACUITY: 1 month PAIN SCORE: Non-responsive. LOCATION: Bilateral chest FINDINGS: Increasing consolidation left mid and lower lung with complete loss of delineation left hemidiaphragm and left heart border. There is a new small area of infiltrate at the right lower lung. The heart is similar in size. Tracheostomy and upper thoracic hardware. CONCLUSION: Increasing left lower lung consolidation and new smaller infiltrate in the right lower lung. Vincent Bo MD on March 23, 2016 at 6:54 Board Certified Radiologist. This report was verified electronically.
[2016-03-23] MEDS: CHLORHEXIDINE 0.12% (ORAL KIT) 15 ML CUP MT SCH ×2 (08:00→19:27)
[2016-03-23] MEDS: ENOXAPARIN SODIUM 30 MG/0.3 ML SYRINGE SQ SCH ×2 (08:53→19:26)
[2016-03-23] MEDS: DOCUSATE SODIUM 100 MG CAP PO SCH ×2 (08:53→19:26)
[2016-03-23] MEDS: QUEtiapine FUMARATE 25 MG TAB PO SCH ×2 (08:53→19:26)
[2016-03-23] MEDS: IBUPROFEN 600 MG TAB PO SCH ×2 (08:53→19:26)
[2016-03-23] MEDS: SODIUM CHLORIDE 0.9% FLUSH 5 ML FLUSH IVF SCH ×2 (09:00→19:27)
[2016-03-23] MEDS: BISACODYL 10 MG SUPP RECTAL SCH (09:02)
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
[2016-03-23] MEDS: traZODone HCL 50 MG TAB PO SCH (19:26)
[2016-03-23] MEDS: FAMOTIDINE 20 MG TAB PO SCH (19:26)
[2016-03-23] MEDS: MAGNESIUM HYDROXIDE SUSP 30 ML CUP PO SCH (19:26)
[2016-03-24] VITALS (7 sets, daily range): BP systolic 101–124; BP diastolic 60–78; PULSE 83–96; RESP 17–24; TEMP 97.4–100; O2SAT 95–100
[2016-03-24] MEDS: RESP: ALBUTEROL 2.5 MG/IPRATROPIUM 0.5 MG NEB (PRN) NEB ×2 (02:52→17:25)
[2016-03-24] MEDS: oxyCODONE HCL ORAL CONC 20 MG/ML SYRINGE PO PRN (03:27)
[2016-03-24] MEDS ORDERED: HYOSCYAMINE SOLN 0.125 MG/ML 15 ML BTL PO PRN (03:45)
[2016-03-24] MEDS: CHLORHEXIDINE 0.12% (ORAL KIT) 15 ML CUP MT SCH ×2 (08:00→20:00)
[2016-03-24] MEDS: SODIUM CHLORIDE 0.9% FLUSH 5 ML FLUSH IVF SCH ×2 (09:00→20:25)
[2016-03-24] MEDS: ENOXAPARIN SODIUM 30 MG/0.3 ML SYRINGE SQ SCH ×2 (09:23→20:28)
[2016-03-24] MEDS: BISACODYL 10 MG SUPP RECTAL SCH (09:23)
[2016-03-24] MEDS: QUEtiapine FUMARATE 25 MG TAB PO SCH ×2 (09:23→20:27)
[2016-03-24] MEDS: IBUPROFEN 600 MG TAB PO SCH ×2 (09:23→20:27)
[2016-03-24] MEDS: DOCUSATE SODIUM 100 MG CAP PO SCH ×2 (09:23→20:25)
--- NOTE | 2016-03-24 09:33 | RADRPT ---
EXAM DATE/TIME: 03/24/2016 08:41 [facility] COMPARISON: CHEST SINGLE AP, March 23, 2016, 5:01. INDICATIONS : Secretions, atelectasis, short of breath MEDICAL HISTORY : None. SURGICAL HISTORY : Spinal ENCOUNTER: Subsequent ACUITY: 1 month PAIN SCORE: Non-responsive. LOCATION: Bilateral chest FINDINGS: The PICC is in good position. The heart is enlarged. There is fusion hardware in the thoracic spine. There are patchy areas of atelectasis in both lungs which are stable compared to previous. CONCLUSION: 1. There are areas of atelectasis bilaterally. These are unchanged from previously 03/23/16. 2. PICC in good position. John Harvey MD on March 24, 2016 at 9:31 Board Certified Radiologist. This report was verified electronically.
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
[2016-03-24] MEDS ORDERED: RESP: SODIUM CHLORIDE 3% 4 ML NEB NEB PRN (13:15)
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
[2016-03-24] MEDS: MAGNESIUM HYDROXIDE SUSP 30 ML CUP PO SCH (20:26)
[2016-03-24] MEDS: traZODone HCL 50 MG TAB PO SCH (20:26)
[2016-03-24] MEDS: FAMOTIDINE 20 MG TAB PO SCH (20:27)
[2016-03-25] VITALS (11 sets, daily range): BP systolic 99–116; BP diastolic 56–68; PULSE 75–103; RESP 17–18; TEMP 97.5–102.3; O2SAT 97–100
[2016-03-25] MEDS: CHLORHEXIDINE 0.12% (ORAL KIT) 15 ML CUP MT SCH ×2 (08:00→20:00)
[2016-03-25] MEDS: ENOXAPARIN SODIUM 30 MG/0.3 ML SYRINGE SQ SCH ×2 (08:14→20:33)
[2016-03-25] MEDS: DOCUSATE SODIUM 100 MG CAP PO SCH ×2 (08:15→20:32)
[2016-03-25] MEDS: IBUPROFEN 600 MG TAB PO SCH ×2 (08:15→20:33)
[2016-03-25] MEDS: SODIUM CHLORIDE 0.9% FLUSH 5 ML FLUSH IVF SCH ×2 (08:15→20:32)
[2016-03-25] MEDS: QUEtiapine FUMARATE 25 MG TAB PO SCH ×2 (08:15→20:33)
[2016-03-25] MEDS: BISACODYL 10 MG SUPP RECTAL SCH (08:16)
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
[2016-03-25] MEDS: MAGNESIUM HYDROXIDE SUSP 30 ML CUP PO SCH (20:32)
[2016-03-25] MEDS: traZODone HCL 50 MG TAB PO SCH (20:33)
[2016-03-25] MEDS: FAMOTIDINE 20 MG TAB PO SCH (20:34)
[2016-03-25] MEDS: oxyCODONE HCL ORAL CONC 20 MG/ML SYRINGE PO PRN (20:43)
[2016-03-25] MEDS: RESP: ALBUTEROL 2.5 MG/IPRATROPIUM 0.5 MG NEB (PRN) NEB (21:10)
[2016-03-26] VITALS (7 sets, daily range): BP systolic 96–124; BP diastolic 54–74; PULSE 58–90; RESP 17–18; TEMP 95.7–101; O2SAT 95–100
[2016-03-26] MEDS: CHLORHEXIDINE 0.12% (ORAL KIT) 15 ML CUP MT SCH (08:00)
[2016-03-26] MEDS: IBUPROFEN 600 MG TAB PO SCH ×2 (08:27→20:32)
[2016-03-26] MEDS: QUEtiapine FUMARATE 25 MG TAB PO SCH ×2 (08:27→20:32)
[2016-03-26] MEDS: ENOXAPARIN SODIUM 30 MG/0.3 ML SYRINGE SQ SCH ×2 (08:27→20:32)
[2016-03-26] MEDS: DOCUSATE SODIUM 100 MG CAP PO SCH ×2 (08:27→20:32)
[2016-03-26] MEDS: SODIUM CHLORIDE 0.9% FLUSH 5 ML FLUSH IVF SCH ×2 (08:28→20:33)
[2016-03-26] MEDS: BISACODYL 10 MG SUPP RECTAL SCH (08:28)
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
[2016-03-26] MEDS: FAMOTIDINE 20 MG TAB PO SCH (20:32)
[2016-03-26] MEDS: MAGNESIUM HYDROXIDE SUSP 30 ML CUP PO SCH (20:32)
[2016-03-26] MEDS: traZODone HCL 50 MG TAB PO SCH (20:32)
[2016-03-27] VITALS (8 sets, daily range): BP systolic 102–121; BP diastolic 64–75; PULSE 68–105; RESP 17–20; TEMP 97.7–100.5; O2SAT 90–100
--- NOTE | 2016-03-27 07:00 | RADRPT ---
EXAM DATE/TIME: 03/27/2016 05:58 [facility] COMPARISON: CHEST SINGLE AP, March 24, 2016, 8:41. INDICATIONS : Short of breath, evaluate infiltrates MEDICAL HISTORY : None. clavicle fracture SURGICAL HISTORY : thoracic fusion ENCOUNTER: Subsequent ACUITY: 1 month PAIN SCORE: Non-responsive. LOCATION: Bilateral chest FINDINGS: A single view of the chest demonstrates an increasing infiltrate in the left lung base. The right koko g is clear. The heart size is stable. There are no pleural effusions. There is a healing fracture of the right clavicle.. CONCLUSION: Increasing infiltrate in the left lung base. Jesus Hayward MD on March 27, 2016 at 6:58 Board Certified Radiologist. This report was verified electronically.
[2016-03-27] MEDS: CHLORHEXIDINE 0.12% (ORAL KIT) 15 ML CUP MT SCH ×2 (08:00→20:00)
[2016-03-27] MEDS: ENOXAPARIN SODIUM 30 MG/0.3 ML SYRINGE SQ SCH ×2 (08:55→20:58)
[2016-03-27] MEDS: QUEtiapine FUMARATE 25 MG TAB PO SCH ×2 (08:55→20:58)
[2016-03-27] MEDS: BISACODYL 10 MG SUPP RECTAL SCH (08:55)
[2016-03-27] MEDS: DOCUSATE SODIUM 100 MG CAP PO SCH ×2 (08:56→20:58)
[2016-03-27] MEDS: IBUPROFEN 600 MG TAB PO SCH (08:56)
[2016-03-27] MEDS: SODIUM CHLORIDE 0.9% FLUSH 5 ML FLUSH IVF SCH ×2 (08:56→20:59)
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
[2016-03-27] MEDS ORDERED: TRAZ50TA12 PO (11:26)
[2016-03-27] MEDS ORDERED: ACET325T PO (11:26)
[2016-03-27] MEDS ORDERED: QUET1TAB7 PO (11:26)
[2016-03-27] MEDS ORDERED: ENOX30P SQ (11:26)
[2016-03-27] MEDS ORDERED: DOCU1CAP39 PO (11:26)
[2016-03-27] MEDS ORDERED: BISA10R RECTAL (11:26)
[2016-03-27] MEDS ORDERED: IBUP-232 PO (11:26)
[2016-03-27] MEDS ORDERED: MILKSUS PO (11:26)
[2016-03-27] MEDS ORDERED: IPRASOL NEB (11:26)
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
[2016-03-27] MEDS: FAMOTIDINE 20 MG TAB PO SCH (20:58)
[2016-03-27] MEDS: MAGNESIUM HYDROXIDE SUSP 30 ML CUP PO SCH (20:58)
[2016-03-27] MEDS: traZODone HCL 50 MG TAB PO SCH (20:58)
[2016-03-27] MEDS: oxyCODONE HCL ORAL CONC 20 MG/ML SYRINGE PO PRN (20:59)
[2016-03-27] MEDS: RESP: ALBUTEROL 2.5 MG/IPRATROPIUM 0.5 MG NEB (PRN) NEB (23:26)
[2016-03-28] VITALS (8 sets, daily range): BP systolic 101–123; BP diastolic 59–69; PULSE 88–95; RESP 16–20; TEMP 98.4–100; O2SAT 95–99
[2016-03-28] MEDS: CHLORHEXIDINE 0.12% (ORAL KIT) 15 ML CUP MT SCH ×2 (08:00→20:00)
[2016-03-28] MEDS: SODIUM CHLORIDE 0.9% FLUSH 5 ML FLUSH IVF SCH ×2 (08:44→20:38)
[2016-03-28] MEDS: BISACODYL 10 MG SUPP RECTAL SCH (08:44)
[2016-03-28] MEDS: QUEtiapine FUMARATE 25 MG TAB PO SCH ×2 (08:49→20:26)
[2016-03-28] MEDS: DOCUSATE SODIUM 100 MG CAP PO SCH ×2 (08:49→20:27)
[2016-03-28] MEDS: ENOXAPARIN SODIUM 30 MG/0.3 ML SYRINGE SQ SCH ×2 (08:49→20:27)
--- NOTE | 2016-03-28 10:48 | HHI.PR ---
Neuropsych Emotional Emotional: Intact: Emotional Behavior Behavior: Intact: Coping/Acceptance, Cooperative w/ Treatment, Motivation Cognitive Cognitive: Intact: Cognitive, Attention/Concentration, Confused/Orientation, Insight/Awareness, Judgement/Problem-Solving, Memory Psychosocial Psychosocial: Intact: Psychosocial, Family/Other Adjustment, Mild: Realistic Expectation Progress Notes/Response to Tx Contents of Sessions: Adjustment Time with Patient: 15 minutes Premorbid psychological status Patient has high school education and some college. No history of behavioral difficulties, academic challenges or grade repetitions while in school. Not working and on social security disability due to psychiatric reasons. Patient has a fiancee and one child. Maximizing acute care outcome This patient is eager to move to rehabilitative services. Anticipated Problems From a neuropsychological perspective, the patient may have emotional adjustment issues in light of to what extent he will regain functioning. This will continue to be monitored. Treatment Plan This clinician will continue to follow with you throughout the course of this patients acute care treatment, and I will be available to meet with the patient s family/support system to facilitate their understanding and the ongoing care of their family member. The goals of neuropsychological intervention shall be both educational and supportive to the family/support system as is deemed clinically appropriate. Diagnosis: (1) Adjustment disorder with anxiety Status: Acute Progress Note Narrative Ongoing follow-up of patient, who was seen in his room along with his fiancee. Patient is in good spirits, compliant and is very motivated to begin rehabilitation. His adjustment difficulties are improving. Mood is euthymic and affect is stable and appropriate. I will continue to follow in this supportive role. Tacho Myers PhD Mar 28, 2016 10:48 am
[2016-03-28] MEDS ORDERED: ONDANSETRON ODT 4 MG TAB PO PRN (12:30)
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
[2016-03-28 14:42] LABS: BACTERIA, URINE MANY /hpf; BLOOD, URINE MOD (NEG); COMMENT (UR) CATH-CULTURE IND; CULTURE IF INDICATED CATH CULTURE IND; GLUCOSE,URINE NEG (NEG); KETONE, URINE NEG (NEG); MUCUS URINE MANY /lpf (OCC); NITRITE,URINE NEG (NEG); PH, URINE 6.5 (5.0-8.5); SQUAMOUS EPITHELIAL CELL URINE 3 /hpf (0-5); URINE COLOR YELLOW (YELLW/STRAW)
[2016-03-28] MEDS: traZODone HCL 50 MG TAB PO SCH (20:26)
[2016-03-28] MEDS: FAMOTIDINE 20 MG TAB PO SCH (20:26)
[2016-03-28] MEDS: MAGNESIUM HYDROXIDE SUSP 30 ML CUP PO SCH (20:27)
[2016-03-29] VITALS (9 sets, daily range): BP systolic 107–115; BP diastolic 57–74; PULSE 69–97; RESP 14–20; TEMP 97.7–101.2; O2SAT 95–99
[2016-03-29 03:59] LABS: BASOPHIL # 0.1 TH/MM3 (0-0.2); BASOPHIL % 0.7 % (0.0-2.0); EOSINOPHIL # 0.6 TH/MM3 (0-0.4); EOSINOPHIL % 7.2 % (0.0-4.0); HEMATOCRIT 34.3 % (39.0-51.0); HEMO FLAGS DIFF FINAL; LYMPH % 31.8 % (9.0-44.0); LYMPHOCYTE # 2.6 TH/MM3 (1.0-4.8); MEAN CELL VOLUME 85.8 FL (80.0-100.0); MEAN CORPUSCULAR HEMOGLOBIN 28.7 PG (27.0-34.0); MEAN CORPUSCULAR HGB CONC 33.5 % (32.0-36.0); MONO % 11.2 % (0.0-8.0); NEUT % 49.1 % (16.0-70.0); PLATELET COUNT 376 TH/MM3 (150-450); RED CELL DISTRIBUTION WIDTH 13.9 % (11.6-17.2); WHITE BLOOD COUNT 8.2 TH/MM3 (4.0-11.0)
[2016-03-29 04:18] LABS: ALT (GPT) 40 U/L (12-78); ANION GAP 8 MEQ/L (5-15); AST (GOT) 21 U/L (15-37); BICARBONATE 28.9 MEQ/L (21.0-32.0); BLOOD UREA NITROGEN 9 MG/DL (7-18); CHLORIDE 101 MEQ/L (98-107); GLOMERULAR FILTRATION RATE 171 ML/MIN (>89); MAGNESIUM 1.8 MG/DL (1.5-2.5); POTASSIUM 3.9 MEQ/L (3.5-5.1); SODIUM (NA) 138 MEQ/L (136-145)
[2016-03-29 04:21] LABS: ALKALINE PHOSPHATASE 142 U/L (45-117); TOTAL BILIRUBIN ADULT 0.3 MG/DL (0.2-1.0)
[2016-03-29] MEDS: CHLORHEXIDINE 0.12% (ORAL KIT) 15 ML CUP MT SCH (08:00)
[2016-03-29] MEDS: SODIUM CHLORIDE 0.9% FLUSH 5 ML FLUSH IVF SCH ×2 (08:43→21:00)
[2016-03-29] MEDS: QUEtiapine FUMARATE 25 MG TAB PO SCH ×2 (08:43→21:04)
[2016-03-29] MEDS: DOCUSATE SODIUM 100 MG CAP PO SCH ×2 (08:43→21:04)
[2016-03-29] MEDS: ENOXAPARIN SODIUM 30 MG/0.3 ML SYRINGE SQ SCH ×2 (08:43→21:05)
[2016-03-29] MEDS: BISACODYL 10 MG SUPP RECTAL SCH (08:44)
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
[2016-03-29] MEDS: MAGNESIUM HYDROXIDE SUSP 30 ML CUP PO SCH (21:00)
[2016-03-29] MEDS: ACETAMINOPHEN 325 MG TAB PO PRN (21:04)
[2016-03-29] MEDS: traZODone HCL 50 MG TAB PO SCH (21:04)
[2016-03-29] MEDS: FAMOTIDINE 20 MG TAB PO SCH (21:04)
[2016-03-30] VITALS (9 sets, daily range): BP systolic 110–122; BP diastolic 58–80; PULSE 81–103; RESP 16–20; TEMP 97.3–99.8; O2SAT 96–98
--- NOTE | 2016-03-30 06:08 | RADRPT ---
EXAM DATE/TIME: 03/30/2016 05:43 [place] COMPARISON: CHEST SINGLE AP, March 27, 2016, 5:58. INDICATIONS : Shortness of breath, possible pulmonary disease. MEDICAL HISTORY : None. SURGICAL HISTORY : Fusion, thoracic. ENCOUNTER: Subsequent ACUITY: 1 month PAIN SCORE: Non-responsive. LOCATION: Bilateral chest FINDINGS: Cardiomegaly and left effusion suspected. Right lung is clear. Rods and a screw fixation of the thora cic spine is noted as before. A subacute right mid clavicular fracture deformity is noted with callus formation seen. Left lower lobe consolidation. CONCLUSION: No significant change has occurred. Lazaro Cavazos MD on March 30, 2016 at 6:06 Board Certified Radiologist. This report was verified electronically.
[2016-03-30] MEDS: SODIUM CHLORIDE 0.9% FLUSH 5 ML FLUSH IVF SCH ×2 (08:16→19:51)
[2016-03-30] MEDS: DOCUSATE SODIUM 100 MG CAP PO SCH ×2 (08:16→19:51)
[2016-03-30] MEDS: QUEtiapine FUMARATE 25 MG TAB PO SCH ×2 (08:17→19:51)
[2016-03-30] MEDS: ENOXAPARIN SODIUM 30 MG/0.3 ML SYRINGE SQ SCH ×2 (08:18→19:52)
[2016-03-30] MEDS: BISACODYL 10 MG SUPP RECTAL SCH (08:18)
[2016-03-30] MEDS ORDERED: SULFAMETHOXAZOLE-TRIMETHOPRIM DS 800-160 MG TAB PO SCH (09:00)
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
[2016-03-30] MEDS: ASCORBIC ACID 500 MG TAB PO SCH (15:38)
[2016-03-30 16:07] LABS: AUTOMATED NEUTROPHIL # 4.3 TH/MM3 (1.8-7.7); BASOPHIL # 0.1 TH/MM3 (0-0.2); BASOPHIL % 0.7 % (0.0-2.0); EOSINOPHIL # 0.6 TH/MM3 (0-0.4); HEMATOCRIT 34.8 % (39.0-51.0); HEMO FLAGS DIFF FINAL; LYMPH % 24.3 % (9.0-44.0); LYMPHOCYTE # 1.9 TH/MM3 (1.0-4.8); MEAN CELL VOLUME 85.4 FL (80.0-100.0); MEAN CORPUSCULAR HEMOGLOBIN 29.2 PG (27.0-34.0); MEAN CORPUSCULAR HGB CONC 34.2 % (32.0-36.0); MONO % 10.9 % (0.0-8.0); NEUT % 56.1 % (16.0-70.0); PLATELET COUNT 379 TH/MM3 (150-450); RED BLOOD COUNT 4.07 MIL/MM3 (4.50-5.90); RED CELL DISTRIBUTION WIDTH 13.3 % (11.6-17.2); WHITE BLOOD COUNT 7.7 TH/MM3 (4.0-11.0)
[2016-03-30] MEDS: MAGNESIUM HYDROXIDE SUSP 30 ML CUP PO SCH (19:51)
[2016-03-30] MEDS: FAMOTIDINE 20 MG TAB PO SCH (19:51)
[2016-03-30] MEDS: traZODone HCL 50 MG TAB PO SCH (19:51)
[2016-03-30] MEDS ORDERED: CEFEPIME INJ 2,000 MG in SODIUM CHLORIDE 0.9% INJ 100 ML IV SCH (20:00)
[2016-03-30] MEDS: CEFEPIME INJ 2,000 MG in SODIUM CHLORIDE 0.9% INJ 100 ML IV SCH (21:15)
[2016-03-31] VITALS: BP 120/71; PULSE 101; RESP 18; TEMP 97.3; O2SAT 97
[2016-03-31 04:21] VITALS: BP 105/68; PULSE 92; RESP 18; TEMP 100.2; O2SAT 96
[2016-03-31] MEDS: ACETAMINOPHEN 325 MG TAB PO PRN (04:55)
[2016-03-31 05:22] LABS: BASOPHIL # 0.1 TH/MM3 (0-0.2); BASOPHIL % 0.8 % (0.0-2.0); EOSINOPHIL # 0.6 TH/MM3 (0-0.4); EOSINOPHIL % 7.7 % (0.0-4.0); HEMATOCRIT 34.1 % (39.0-51.0); HEMO FLAGS DIFF FINAL; LYMPH % 28.7 % (9.0-44.0); LYMPHOCYTE # 2.2 TH/MM3 (1.0-4.8); MEAN CELL VOLUME 84.8 FL (80.0-100.0); MEAN CORPUSCULAR HEMOGLOBIN 28.8 PG (27.0-34.0); MONO % 11.2 % (0.0-8.0); NEUT % 51.6 % (16.0-70.0); PLATELET COUNT 386 TH/MM3 (150-450); RED BLOOD COUNT 4.02 MIL/MM3 (4.50-5.90); RED CELL DISTRIBUTION WIDTH 13.6 % (11.6-17.2); WHITE BLOOD COUNT 7.8 TH/MM3 (4.0-11.0)
[2016-03-31 05:50] LABS: ANION GAP 7 MEQ/L (5-15); AST (GOT) 14 U/L (15-37); BICARBONATE 29.4 MEQ/L (21.0-32.0); BLOOD UREA NITROGEN 7 MG/DL (7-18); CHLORIDE 103 MEQ/L (98-107); GLOMERULAR FILTRATION RATE 148 ML/MIN (>89); MAGNESIUM 1.9 MG/DL (1.5-2.5); SODIUM (NA) 139 MEQ/L (136-145)
[2016-03-31 05:56] LABS: ALKALINE PHOSPHATASE 138 U/L (45-117); ALT (GPT) 36 U/L (12-78); TOTAL BILIRUBIN ADULT 0.3 MG/DL (0.2-1.0)
--- NOTE | 2016-03-31 06:37 | RADRPT ---
EXAM DATE/TIME: 03/31/2016 05:37 [facility] COMPARISON: CHEST SINGLE AP, March 30, 2016, 5:43. INDICATIONS : Short of breath MEDICAL HISTORY : None. SURGICAL HISTORY : thoracic fusion ENCOUNTER: Subsequent ACUITY: 1 month PAIN SCORE: Non-responsive. LOCATION: Bilateral chest FINDINGS: Cardiomegaly and left retrocardiac consolidation again noted, not significantly changed. There is mil d atelectasis of the right base also stable. Small left pleural effusion likely. I don't see a pneumo thorax. Patient has had previous upper thoracic spine fusion with posterior instrumentation. There is a trach collar. CONCLUSION: Left greater than right basilar consolidation not significantly changed. Kuldip Sibley MD on March 31, 2016 at 6:33 Board Certified Radiologist. This report was verified electronically.
[2016-03-31] MEDS: SODIUM CHLORIDE 0.9% FLUSH 5 ML FLUSH IVF SCH (09:00)
[2016-03-31] MEDS: DOCUSATE SODIUM 100 MG CAP PO SCH (09:00)
[2016-03-31] MEDS: BISACODYL 10 MG SUPP RECTAL SCH (09:00)
[2016-03-31 09:15] VITALS: BP 119/75; PULSE 82; RESP 18; TEMP 97.7; O2SAT 97
[2016-03-31] MEDS: ENOXAPARIN SODIUM 30 MG/0.3 ML SYRINGE SQ SCH (09:51)
[2016-03-31] MEDS: QUEtiapine FUMARATE 25 MG TAB PO SCH (09:52)
[2016-03-31] MEDS: ASCORBIC ACID 500 MG TAB PO SCH (09:52)
[2016-03-31] MEDS: CEFEPIME INJ 2,000 MG in SODIUM CHLORIDE 0.9% INJ 100 ML IV SCH (09:54)
[2016-03-31] MEDS ORDERED: ONDA4TAB7 PO (10:31)
[2016-03-31] MEDS ORDERED: VITA500T PO (10:31)
[2016-03-31] MEDS ORDERED: CEFE2INJ2 IV (10:31)
[2016-03-31] MEDS ORDERED: FAMO20TA2 PO (10:31)
[2016-03-31] MEDS ORDERED: OXYC1CON3 PO (10:31)
--- NOTE | 2016-03-31 11:26 | HHI.PR ---
Neuropsych Emotional Emotional: Intact: Emotional Behavior Behavior: Intact: Behavior, Cooperative w/ Treatment, Motivation, Mild: Coping /Acceptance Cognitive Cognitive: Intact: Cognitive, Attention/Concentration, Confused/Orientation, Insight/Awareness Psychosocial Psychosocial: Mild: Psychosocial, Family/Other Adjustment, Realistic Expectation Progress Notes/Response to Tx Contents of Sessions: Adjustment Time with Patient: 15 minutes Premorbid psychological status Patient has high school education and some college. No history of behavioral difficulties, academic challenges or grade repetitions while in school. Not working and on social security disability due to psychiatric reasons. Patient has a fiancee and one child. Maximizing acute care outcome This patient is eager to move to rehabilitative services. Anticipated Problems From a neuropsychological perspective, the patient may have emotional adjustment issues in light of to what extent he will regain functioning. This will continue to be monitored. Treatment Plan This clinician will continue to follow with you throughout the course of this patients acute care treatment, and I will be available to meet with the patient s family/support system to facilitate their understanding and the ongoing care of their family member. The goals of neuropsychological intervention shall be both educational and supportive to the family/support system as is deemed clinically appropriate. Diagnosis: (1) Adjustment disorder with anxiety Status: Acute Progress Note Narrative Ongoing follow-up with patient, who is being [facility]. Patient appeared in a good mood, stable affect, and is eager to start rehabilitation. I will follow the patient once he is at [facility]. Tacho Myers PhD Mar 31, 2016 11:26 am
[2016-03-31 12:29] VITALS: BP 115/76; PULSE 83; RESP 20; TEMP 97.5; O2SAT 97
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
[2016-03-31 13:21] VITALS: O2SAT 98
--- NOTE | 2016-04-19 17:57 | MP ---
cc: SORAYA HORTA MD DATE OF SURGERY: 03/21/2016. PREOPERATIVE DIAGNOSIS: Heavy secretions, respiratory insufficiency. POSTOPERATIVE DIAGNOSIS: Heavy secretions, respiratory insufficiency. OPERATION: Bronchoscopy, lavage and evacuation of secretions. SURGEON: Soraya Horta M.D. ANESTHESIA: Sedation. ESTIMATED BLOOD LOSS: None. DESCRIPTION OF THE PROCEDURE IN DETAIL: The patient was prepared and sedated with additional propofol and then the bronchoscope was inserted after exchange of the tracheotomy tube. The bronchoscopy revealed heavy secretions in both lungs, mainly on the left. This was irrigated and suctioned off and then the bronchial tree was lavaged. The third generation aboration of the bronchi was reached and cleaned out. After that, the bronchoscope was withdrawn and a Shiley cannula was secured with the umbilical tape around the neck. The patient tolerated the procedure well. Soraya ALONSO/BEN /2:33 PM /5:55 PM
[2016-04-22] MEDS ORDERED: Transfer Board (14:43)
[2016-04-22] MEDS ORDERED: TUB TRANSFER BO1 MIS (14:43)
[2016-04-22] MEDS ORDERED: FOLDING REACHER1 MIS (14:43)
[2016-04-22] MEDS ORDERED: COMMODE PAIL WI1 MIS (14:43)
[2016-04-22] MEDS ORDERED: [UNRECOGNIZED DRUG - SUPPLY] (14:43)
[2016-04-29] MEDS ORDERED: TRAZ100T4 PO (10:24)
[2016-04-29] MEDS ORDERED: BISA10R RECTAL (10:24)
[2016-04-29] MEDS ORDERED: OXYC-392 PO (10:24)
[2016-04-29] MEDS ORDERED: THERTAB15 PO (10:24)
[2016-04-29] MEDS ORDERED: ENOX30P SQ (10:24)
[2016-04-29] MEDS ORDERED: COLL30T TOP (10:24)
[2016-04-29] MEDS ORDERED: SENN1TAB PO (10:24)
[2016-04-29] MEDS ORDERED: FAMO20TA2 PO (10:24)
[2016-04-29] MEDS ORDERED: QUET1TAB7 PO (10:24)
[2016-05-09] MEDS ORDERED: ROBA500T PO (14:39)
[2016-05-09] MEDS ORDERED: HYDR2TAB PO (14:39)
[2016-06-20] MEDS ORDERED: OXYC-392 PO (13:20)
[2016-06-20] MEDS ORDERED: SENN1TAB PO (13:20)
[2016-06-20] MEDS ORDERED: COLL30T TOP (13:20)
[2016-06-20] MEDS ORDERED: BISA10R RECTAL (13:20)
[2016-06-20] MEDS ORDERED: THERTAB15 PO (13:20)
[2016-06-20] MEDS ORDERED: TRAZ100T4 PO (13:20)
== END 2016-03-31 14:47 | DRG 3 ==
LOC: EDSEX → NEPI 15:31 → EDBD 15:53 → NEDA 15:53 → N03B 16:20 → N07A 03-18 22:22
PROVIDERS: ADMIT Surgery; ATTEND Surgery
PROC: 5A1955Z Respiratory Ventilation, Greater than 96 Consecutive Hours (ICD-10-PCS; 2016-02-17)
PROC: 0BH17EZ Insertion of Endotracheal Airway into Trachea, Via Natural or Artificial Opening (ICD-10-PCS; 2016-02-17)
PROC: 0W9B30Z Drainage of Left Pleural Cavity with Drainage Device, Percutaneous Approach (ICD-10-PCS; 2016-02-17)
PROC: 03HB33Z Insertion of Infusion Device into Right Radial Artery, Percutaneous Approach (ICD-10-PCS; 2016-02-17)
PROC: 0PS404Z Reposition Thoracic Vertebra with Internal Fixation Device, Open Approach (ICD-10-PCS; 2016-02-20)
PROC: 30233N1 Transfusion of Nonautologous Red Blood Cells into Peripheral Vein, Percutaneous Approach (ICD-10-PCS; 2016-02-20)
PROC: 0RG70Z1 (ICD-10-PCS; principal; 2016-02-20 12:46)
PROC: 0BCB8ZZ Extirpation of Matter from Left Lower Lobe Bronchus, Via Natural or Artificial Opening Endoscopic (ICD-10-PCS; 2016-02-23)
PROC: 0BC88ZZ Extirpation of Matter from Left Upper Lobe Bronchus, Via Natural or Artificial Opening Endoscopic (ICD-10-PCS; 2016-02-23)
PROC: 02HV33Z Insertion of Infusion Device into Superior Vena Cava, Percutaneous Approach (ICD-10-PCS; 2016-02-25)
PROC: B548ZZA Ultrasonography of Superior Vena Cava, Guidance (ICD-10-PCS; 2016-02-25)
PROC: 0BCB8ZZ Extirpation of Matter from Left Lower Lobe Bronchus, Via Natural or Artificial Opening Endoscopic (ICD-10-PCS; 2016-02-29)
PROC: 0BC38ZZ Extirpation of Matter from Right Main Bronchus, Via Natural or Artificial Opening Endoscopic (ICD-10-PCS; 2016-02-29)
PROC: 0BC68ZZ Extirpation of Matter from Right Lower Lobe Bronchus, Via Natural or Artificial Opening Endoscopic (ICD-10-PCS; 2016-02-29)
PROC: 0B113F4 Bypass Trachea to Cutaneous with Tracheostomy Device, Percutaneous Approach (ICD-10-PCS; 2016-03-03)
PROC: 06H03DZ Insertion of Intraluminal Device into Inferior Vena Cava, Percutaneous Approach (ICD-10-PCS; 2016-03-07)
PROC: B5191ZZ Fluoroscopy of Inferior Vena Cava using Low Osmolar Contrast (ICD-10-PCS; 2016-03-07)
PROC: 3E1F88Z Irrigation of Respiratory Tract using Irrigating Substance, Via Natural or Artificial Opening Endoscopic (ICD-10-PCS; 2016-03-21)
DX: S24.102A Unspecified injury at T2-T6 level of thoracic spinal cord, initial encounter (principal); R57.8 Other shock; J15.1 Pneumonia due to Pseudomonas; A41.9 Sepsis, unspecified organism; S12.600A Unspecified displaced fracture of seventh cervical vertebra, initial encounter for closed fracture; S27.0XXA Traumatic pneumothorax, initial encounter; J15.6 Pneumonia due to other Gram-negative bacteria; I95.9 Hypotension, unspecified; S06.1X9A Traumatic cerebral edema with loss of consciousness of unspecified duration, initial encounter; J96.01 Acute respiratory failure with hypoxia; G82.20 Paraplegia, unspecified; S22.43XA Multiple fractures of ribs, bilateral, initial encounter for closed fracture; S27.322A Contusion of lung, bilateral, initial encounter; J98.11 Atelectasis; S37.012A Minor contusion of left kidney, initial encounter; N39.0 Urinary tract infection, site not specified; S22.039A Unspecified fracture of third thoracic vertebra, initial encounter for closed fracture; S22.041A Stable burst fracture of fourth thoracic vertebra, initial encounter for closed fracture; S22.049A Unspecified fracture of fourth thoracic vertebra, initial encounter for closed fracture; S22.059A Unspecified fracture of T5-T6 vertebra, initial encounter for closed fracture; S22.069A Unspecified fracture of T7-T8 vertebra, initial encounter for closed fracture; S22.079A Unspecified fracture of T9-T10 vertebra, initial encounter for closed fracture; S42.001A Fracture of unspecified part of right clavicle, initial encounter for closed fracture; V58.9XXA Unspecified occupant of pick-up truck or van injured in noncollision transport accident in traffic accident, initial encounter; Y92.411 Interstate highway as the place of occurrence of the external cause; R40.2420 Glasgow coma scale score 9-12, unspecified time; F43.22 Adjustment disorder with anxiety; D57.3 Sickle-cell trait; B96.89 Other specified bacterial agents as the cause of diseases classified elsewhere
CPT/HCPCS: 32551; 36430; 36569; 36600; 37191; 70450; 70496; 70498; 71010; 71260; 71275; 72070; 72125; 72128; 72131; 72141; 72146; 72170; 73070; 73218; 74000; 74177; 76000; 76937; 80048; 80053; 80076; 80202; 80320; 81001; 82247; 82248; 82435; 82565; 82805; 82947; 83020; 83021; 83605; 83615; 83735; 84100; 84132; 84155; 84295; 84520; 85007; 85014; 85018; 85025; 85027; 85044; 85610; 85652; 85660; 85730; 86140; 86850; 86900; 86901; 86920; 87040; 87070; 87077; 87086; 87186; 87205; 87493; 87641; 90471; 90715; 93306; 93970; 94002; 94003; 94640; 94664; 94770; 96374; 99152; 99153; 99291; A7520; A7521; C1713; C1769; C1880; C9113; C9399; G0390; G0479; J0131; J0171; J0330; J0461; J0690; J0692; J1170; J1580; J1642; J1644; J1650; J1815; J1940; J1956; J2060; J2175; J2248; J2250; J2270; J2370; J2405; J2543; J2710; J2765; J3010; J3370; J3475; J3480; J7030; J7040; J7050; J7120; J7613; J7685; L0150; L0172; P9016; Q9963; Q9967

== ENCOUNTER 2016-08-16 18:52 | Inpatient (IN) | payer OTHER ==
[~2016-08-16] VITALS: Ht 170.2 cm; Wt 74.8 kg
[~2016-08-16 18:52] MED LIST changes: +BISA10R RECTAL; +COLL30T TOP; +OXYC-392 PO; +SENN1TAB PO; -SODIUM BICARBONATE 8.4% INJ 50 MEQ/50 ML SYR IV ONE; +THERTAB15 PO; +TRAZ100T4 PO
[2016-08-16] MEDS ORDERED: SERO50TA PO (19:15)
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
[2016-08-16 19:25] VITALS: BP 116/69; PULSE 70; RESP 16; TEMP 99.1
[2016-08-16 20:20] LABS: AUTOMATED NEUTROPHIL # 11.6 TH/MM3 (1.8-7.7); BASOPHIL # 0.1 TH/MM3 (0-0.2); BASOPHIL % 0.5 % (0.0-2.0); EOSINOPHIL # 0.2 TH/MM3 (0-0.4); HEMATOCRIT 33.1 % (39.0-51.0); HEMO FLAGS DIFF FINAL; LYMPH % 15.7 % (9.0-44.0); LYMPHOCYTE # 2.5 TH/MM3 (1.0-4.8); MEAN CELL VOLUME 81.7 FL (80.0-100.0); MEAN CORPUSCULAR HEMOGLOBIN 26.4 PG (27.0-34.0); MEAN CORPUSCULAR HGB CONC 32.3 % (32.0-36.0); MONO % 11.1 % (0.0-8.0); NEUT % 71.7 % (16.0-70.0); PLATELET COUNT 828 TH/MM3 (150-450); RED BLOOD COUNT 4.05 MIL/MM3 (4.50-5.90); RED CELL DISTRIBUTION WIDTH 16.2 % (11.6-17.2); WHITE BLOOD COUNT 16.1 TH/MM3 (4.0-11.0)
[2016-08-16 20:33] LABS: AMPHETAMINE, URINE NEG (NEG); BARBITURATES, URINE NEG (NEG); COCAINE, URINE NEG (NEG)
[2016-08-16 20:51] LABS: ANION GAP 10 MEQ/L (5-15); AST (GOT) 12 U/L (15-37); BICARBONATE 29.3 MEQ/L (21.0-32.0); BLOOD UREA NITROGEN 8 MG/DL (7-18); CHLORIDE 100 MEQ/L (98-107); GLOMERULAR FILTRATION RATE 148 ML/MIN (>89); POTASSIUM 3.7 MEQ/L (3.5-5.1); SODIUM (NA) 139 MEQ/L (136-145)
[2016-08-16 20:52] LABS: ALT (GPT) 19 U/L (12-78)
[2016-08-16 20:54] LABS: ALKALINE PHOSPHATASE 113 U/L (45-117); TOTAL BILIRUBIN ADULT 0.4 MG/DL (0.2-1.0)
[2016-08-16 20:55] LABS: BACTERIA, URINE RARE /hpf; BLOOD, URINE TRACE (NEG); COMMENT (UR) CULTURE INDICATED; CULTURE IF INDICATED CULTURE INDICATED; GLUCOSE,URINE NEG (NEG); HYALINE CAST, URINE 2 /lpf (RARE); KETONE, URINE NEG (NEG); MUCUS URINE MANY /lpf (OCC); NITRITE,URINE NEG (NEG); SQUAMOUS EPITHELIAL CELL URINE <1 /hpf (0-5); URINE COLOR YELLOW (YELLW/STRAW)
[2016-08-16] MEDS ORDERED: MACR100C2 PO (21:02)
[2016-08-17] VITALS (7 sets, daily range): BP systolic 107–124; BP diastolic 56–78; PULSE 66–112; RESP 16–18; TEMP 97.8–98.4; O2SAT 97–100
[2016-08-17] MEDS ORDERED: NITROFURANTOIN MONOHYD MACROCR 100 MG CAP PO SCH ×2 (09:00→21:00)
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
--- NOTE | 2016-08-17 15:34 | PD ---
Physical Exam Date Seen by Provider: Aug 17, 2016 Time Seen by Provider: 15:33 Narrative I was told by the psych nurse that patient needs to be admitted for his psychiatric reasons but given his underlying conditions he requires a med psych bed. Since the med psych unit is currently closed she requested to see if the patient can be admitted medically. I discussed the case with the hospitalist who has graciously accepted the patient. Data Data Last Documented VS Vital Signs Date Time Temp Pulse Resp B/P Pulse Ox O2 Delivery O2 Flow Rate FiO2 08/17/16 12:00 97.9 70 16 112/78 99 Room Air Orders Complete Blood Count With Diff (08/16/16 19:15) Comprehensive Metabolic Panel (08/16/16 19:15) Psych Screen (08/16/16 19:15) Drug Screen, Random Urine (08/16/16 19:15) Alcohol (Ethanol) (08/16/16 19:15) Urinalysis - C+S If Indicated (08/16/16 20:32) Urine Culture (08/16/16 20:32) Nitrofurantoin Monohyd Macrocr (Macrobid (08/17/16 09:00) Diet Regular Basic (08/17/16 Breakfast) Admit Order (Ed Use Only) (08/17/16 15:35) Labs Laboratory Tests Test 08/16/16 08/16/16 20:00 20:32 White Blood Count 16.1 TH/MM3 Red Blood Count 4.05 MIL/MM3 Hemoglobin 10.7 GM/DL Hematocrit 33.1 % Mean Corpuscular Volume 81.7 FL Mean Corpuscular Hemoglobin 26.4 PG Mean Corpuscular Hemoglobin 32.3 % Concent Red Cell Distribution Width 16.2 % Platelet Count 828 TH/MM3 Mean Platelet Volume 6.7 FL Neutrophils (%) (Auto) 71.7 % Lymphocytes (%) (Auto) 15.7 % Monocytes (%) (Auto) 11.1 % Eosinophils (%) (Auto) 1.0 % Basophils (%) (Auto) 0.5 % Neutrophils # (Auto) 11.6 TH/MM3 Lymphocytes # (Auto) 2.5 TH/MM3 Monocytes # (Auto) 1.8 TH/MM3 Eosinophils # (Auto) 0.2 TH/MM3 Basophils # (Auto) 0.1 TH/MM3 CBC Comment DIFF FINAL Differential Comment Sodium Level 139 MEQ/L Potassium Level 3.7 MEQ/L Chloride Level 100 MEQ/L Carbon Dioxide Level 29.3 MEQ/L Anion Gap 10 MEQ/L Blood Urea Nitrogen 8 MG/DL Creatinine 0.78 MG/DL Estimat Glomerular Filtration 148 ML/MIN Rate Random Glucose 97 MG/DL Calcium Level 9.6 MG/DL Total Bilirubin 0.4 MG/DL Aspartate Amino Transf 12 U/L (AST/SGOT) Alanine Aminotransferase 19 U/L (ALT/SGPT) Alkaline Phosphatase 113 U/L Total Protein 8.5 GM/DL Albumin 2.5 GM/DL Urine Opiates Screen NEG Urine Barbiturates Screen NEG Urine Amphetamines Screen NEG Urine Benzodiazepines Screen NEG Urine Cocaine Screen NEG Urine Cannabinoids Screen NEG Ethyl Alcohol Level LESS THAN 3 MG/DL Urine Color YELLOW Urine Turbidity HAZY Urine pH 6.0 Urine Specific [place] 1.023 Urine Protein 100 mg/dL Urine Glucose (UA) NEG mg/dL Urine Ketones NEG mg/dL Urine Occult Blood TRACE Urine Nitrite NEG Urine Bilirubin NEG Urine Urobilinogen LESS THAN 2.0 MG/DL Urine Leukocyte Esterase TRACE Urine RBC 19 /hpf Urine WBC 12 /hpf Urine Squamous Epithelial <1 /hpf Cells Urine Bacteria RARE /hpf Urine Hyaline Casts 2 /lpf Urine Mucus MANY /lpf Microscopic Urinalysis Comment CULTURE INDICATED MDM Supervised Visit with BERTHA: No Diagnosis Primary Impression: Depression Qualified Code: F32.9 - Depression, unspecified depression type Additional Impression: Urinary tract infection Qualified Code: T83.511A - Urinary tract infection associated with indwelling urethral catheter, initial encounter Admitting Information Admitting Physician Requests: Observation Scripts Nitrofurantoin Monohydrate Macrocrystals (Macrobid)100 Mg [id number] Mg PO BID 10 Days Ref 0 Prov:Mariam Kelly MD 08/16/16 Hemant Rogers MD Aug 17, 2016 15:34
[2016-08-17] MEDS ORDERED: SODIUM CHLORID 0.9% 500 ML INJ 500 ML IV ONE (15:45)
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
[2016-08-17] MEDS: ENOXAPARIN SODIUM 40 MG/0.4 ML SYRINGE SQ SCH (15:58)
[2016-08-17] MEDS: QUEtiapine FUMARATE 25 MG TAB PO SCH (21:07)
[2016-08-18] VITALS (10 sets, daily range): BP systolic 91–117; BP diastolic 50–64; PULSE 66–119; RESP 16–21; TEMP 98–102.5; O2SAT 95–98
[2016-08-18 08:35] LABS: AUTOMATED NEUTROPHIL # 7.4 TH/MM3 (1.8-7.7); BASOPHIL # 0.1 TH/MM3 (0-0.2); BASOPHIL % 0.6 % (0.0-2.0); EOSINOPHIL # 0.3 TH/MM3 (0-0.4); EOSINOPHIL % 2.5 % (0.0-4.0); HEMATOCRIT 27.6 % (39.0-51.0); HEMO FLAGS DIFF FINAL; LYMPH % 23.5 % (9.0-44.0); LYMPHOCYTE # 2.9 TH/MM3 (1.0-4.8); MEAN CELL VOLUME 82.1 FL (80.0-100.0); MEAN CORPUSCULAR HGB CONC 32.9 % (32.0-36.0); MONO % 12.8 % (0.0-8.0); NEUT % 60.6 % (16.0-70.0); PLATELET COUNT 669 TH/MM3 (150-450); RED BLOOD COUNT 3.36 MIL/MM3 (4.50-5.90); RED CELL DISTRIBUTION WIDTH 15.9 % (11.6-17.2); WHITE BLOOD COUNT 12.2 TH/MM3 (4.0-11.0)
[2016-08-18] MEDS: ACETAMINOPHEN 325 MG TAB PO PRN ×3 (08:37→20:52)
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
[2016-08-18] MEDS: ENOXAPARIN SODIUM 40 MG/0.4 ML SYRINGE SQ SCH (15:30)
[2016-08-18] MEDS: SODIUM CHLOR 0.9% 1000 ML INJ 1,000 ML IV SCH (16:47)
[2016-08-18 17:20] LABS: BACTERIA, URINE RARE /hpf; BLOOD, URINE NEG (NEG); CALCIUM OXALATE CRYSTALS,URINE RARE /hpf; GLUCOSE,URINE NEG (NEG); KETONE, URINE NEG (NEG); MUCUS URINE FEW /lpf (OCC); NITRITE,URINE NEG (NEG); SQUAMOUS EPITHELIAL CELL URINE <1 /hpf (0-5); URINE COLOR YELLOW (YELLW/STRAW)
[2016-08-18 17:22] LABS: COMMENT (UR) CATH-CULTURE IND; CULTURE IF INDICATED CATH CULTURE IND
--- NOTE | 2016-08-18 17:28 | RADRPT ---
EXAM DATE/TIME: 08/18/2016 16:25 [place] COMPARISON: CHEST SINGLE AP, March 31, 2016, 5:37. INDICATIONS : Fever. MEDICAL HISTORY : None. SURGICAL HISTORY : None. ENCOUNTER: Initial ACUITY: 1 day PAIN SCORE: 0/10 LOCATION: Bilateral chest FINDINGS: The patient has transpeduncular screws seen in the upper thoracic spine. These are con nected by stabilization rods. The heart size appears normal. There is some increased density at the right hilar and infrahilar region. The lungs appear otherwise clear. No effusion is seen. There is a PICC line in place from the right arm. CONCLUSION: Prominence of the right hilum and the right infrahilar region at the medial righ t base concerning for areas of consolidation. Kuldip Weston MD on August 18, 2016 at 17:19 Board Certified Radiologist. This report was verified electronically.
[2016-08-18] MEDS ORDERED: Vancomycin Consult Pharmacy 1 EA OTHER SCH (18:15)
[2016-08-18] MEDS ORDERED: VANCOMYCIN 1,000 MG/NS 250 ML IV ONE ×2 (18:45)
--- NOTE | 2016-08-18 19:26 | PD.WCN.NOT ---
Wound Consult Description: "Bilateral lower extremities" per Dr Walls Communicated with: MAEGAN Chin Dr Recommendation: Right Trochanter and Sacrum- Apply wound VAC (change Thursday and Thursday). Right unstageable Heel- Cleanse with NS only, apply Santyl daily to dry gauze with light packing. Left trochanter- NS wet to dry dressing with light packing daily cover with dry cover. *WAVE bed *Bilateral blue heel raiser boots *Nutrition consult Additional Information: Patient seen in F pod for wound care consult of wound management of bilateral lower extremities. Right foot rolled gauze dressing removed to reveal an unstageable necrotic wound bed with ~80% yellow loosely adherent slough with ~20 % pink tissue noted circumferentially with open wound margins and callused periwound noted after cleansing with wound cleanser and gauze to remove the thick yellow exudate, no odor noted. Calcium Alginate was placed into wound bed , covered with a 4x4 gauze, and secured with rolled gauze and tape. Left heel rolled gauze removed to reveal healed wounds and new pink tissue noted to plantar and posterior heel. Left medial calf wound is noted with partial thickness skinloss, dried yellow exudate, and measured 1.5cm x 1.7cm x <0.1cm with erythematous periwound extending 2 cm circumferentially that was cleansed with wound cleanser and gauze. Single layer Xeroform and dry cover was placed over wound and secured with rolled gauze and tape. Right trochanter dressing removed to reveal a full thickness stage IV pressure injury that was cleansed with wound cleanser and gauze to reveal fascia and muscle measuring 3.4cm x 2.8cm x 1.8cm with 4.1cm of undermining from 12-7 o'clock. Wound margins are epibole with unremarkable periwound and no odor noted. Wound was lightly packed with NS wet to dry and covered with an optilock dressing for the minimal to moderate serous draining wound with no odor noted. Patient positioned further onto his left side to visualize a sacral dressing which was removed to reveal a stage IV pressure injury in the shape of a star, with muscle and palpated bone, epibole wound margins, and partial thickness skinloss noted periwound. Wound was cleansed with wound cleanser and gauze. Sacral wound measures 6.6cm x 5.6cm x 3.5cm with undermining noted circumferentially with the deepest being 6cm at 2 o'clock. Ns soaked rolled gauze was gently packed into wound bed and covered with a foam adhesive dressing after prepping periwound with barrier skin film. Patients brief was removed and patient was repositioned to his right side for assessment of the left trochanter. Occlusive dressing was removed from left trochanter to reveal 100% muscle throughout a moist wound bed that when cleansed with wound cleanser, revealed remnants of granufoam from a previous wound VAC. Wound measures 15cm x 4cm x 1.5cm with open wound margins and no odor with minimal clear exudate. Wet to dry gauze dressing was placed into wound bed and covered with a foam dressing secured with bordered gauze. Deana Marroquin [facility] Aug 18, 2016 19:26
[2016-08-18] MEDS: QUEtiapine FUMARATE 25 MG TAB PO SCH (20:52)
[2016-08-18] MEDS: PIPERACIL-TAZO 4.5 GM PREMIX 100 ML IV SCH (20:53)
[2016-08-18] MEDS ORDERED: PHARMACY ORDERED LAB ONE (21:45)
[2016-08-19] MEDS: VANCOMYCIN 1,000 MG/NS 250 ML IV SCH ×6 (04:00→17:42)
[2016-08-19] MEDS: PIPERACIL-TAZO 4.5 GM PREMIX 100 ML IV SCH ×4 (04:05→20:27)
[2016-08-19] MEDS: SODIUM CHLOR 0.9% 1000 ML INJ 1,000 ML IV SCH ×2 (04:06→12:45)
[2016-08-19 07:35] VITALS: BP 108/59; PULSE 107; RESP 20; TEMP 98.3; O2SAT 97
[2016-08-19 07:57] LABS: AUTOMATED NEUTROPHIL # 6.7 TH/MM3 (1.8-7.7); BASOPHIL # 0.1 TH/MM3 (0-0.2); BASOPHIL % 0.6 % (0.0-2.0); EOSINOPHIL # 0.3 TH/MM3 (0-0.4); EOSINOPHIL % 2.9 % (0.0-4.0); HEMATOCRIT 26.5 % (39.0-51.0); HEMO FLAGS DIFF FINAL; LYMPH % 16.1 % (9.0-44.0); LYMPHOCYTE # 1.5 TH/MM3 (1.0-4.8); MEAN CELL VOLUME 81.6 FL (80.0-100.0); MEAN CORPUSCULAR HEMOGLOBIN 27.3 PG (27.0-34.0); MEAN CORPUSCULAR HGB CONC 33.5 % (32.0-36.0); MONO % 9.8 % (0.0-8.0); NEUT % 70.6 % (16.0-70.0); PLATELET COUNT 711 TH/MM3 (150-450); RED BLOOD COUNT 3.24 MIL/MM3 (4.50-5.90); RED CELL DISTRIBUTION WIDTH 15.9 % (11.6-17.2); WHITE BLOOD COUNT 9.5 TH/MM3 (4.0-11.0)
[2016-08-19 08:21] LABS: POTASSIUM 3.5 MEQ/L (3.5-5.1)
[2016-08-19 11:03] VITALS: BP 104/57; PULSE 94; RESP 20; TEMP 98.4; O2SAT 97
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
[2016-08-19 14:30] VITALS: BP 131/80; PULSE 81; RESP 18; TEMP 100.9; O2SAT 96
[2016-08-19 16:00] VITALS: BP 120/73; PULSE 87; RESP 18; TEMP 100; O2SAT 98
[2016-08-19] MEDS: ENOXAPARIN SODIUM 40 MG/0.4 ML SYRINGE SQ SCH (16:18)
--- NOTE | 2016-08-19 16:29 | PD.WCN.NOT ---
Wound Consult Description: "Bilateral lower extremities" per Dr Walls Recommendation: Right Trochanter and Sacrum- Apply wound VAC (change Thursday and Thursday). Right unstageable Heel- Cleanse with NS only, apply Santyl daily to dry gauze with light packing. Left trochanter- NS wet to dry dressing with light packing daily cover with dry cover. *WAVE bed *Bilateral blue heel raiser boots *Nutrition consult Neg Pressure Wound Therapy Wound Location Wound Location: Sacrum Wound Description Length: 6.6cm Width: 5.6cm Depth: 3.5cm Underminincm Wound bed appearance: Muscle visualized with palpated bone and minimal serosang drainage noted. Periwound appearance: Other (partial thickness skinloss) Settings Suction: 125 mmHg, Continuous Intensity: Low Other Information: Bridged, Windowpaned Foam type: Black Number of pieces: 1 Additonal Information Wound bed on sacrum was cleansed with NS and gauze. Periwound was windowpaned to protect intact skin before placing 1 piece black foam in a coil fashion to address the undermining within the sacral wound bed that was then bridged up over VAC drape to right proximal hip just above right trochanter wound. Foam was secured with VAC drape and sensi trac pad placed over the end piece. Wound Location Wound Location: Right trochanter Wound Description Length: 3.4cm Width: 2.8cm Depth: 1.8cm Underminin.1cm Wound bed appearance: Wound on right trochanter is muscle and fascia with scant serosang drainage. Wound was cleansed with Ns and gauze. Periwound was skin prepped and windowpaned to protect skin. Adaptic placed over fascia in wound bed prior to placing 2 pieces black foam into wound bed (1 coiled and 1 mushroom). Wound was bridged to right proximal hip just above wound bed using another piece of black granufoam. 3 pieces used in all for right trochanter wound and bridging. Periwound appearance: Unremarkable Settings Suction: 125 mmHg, Continuous Intensity: Low Other Information: Bridged, Mushroomed Foam type: Black Number of pieces: 3 Additonal Information Patient tolerated wound VAC dressing application well with sitter at bedside. Next wound VAC dressing change is scheduled for Thursday08/22/16. Deana Marroquin [facility] Aug 19, 2016 16:29
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
[2016-08-19 20:00] VITALS: BP 90/56; PULSE 101; RESP 17; TEMP 99.2; O2SAT 98
[2016-08-19] MEDS: QUEtiapine FUMARATE 25 MG TAB PO SCH (20:26)
[2016-08-19] MEDS: ACETAMINOPHEN 325 MG TAB PO PRN (20:26)
[2016-08-20] VITALS: BP 90/56; PULSE 101; RESP 17; TEMP 99.2; O2SAT 98
[2016-08-20] MEDS: SODIUM CHLOR 0.9% 1000 ML INJ 1,000 ML IV SCH ×3 (01:28→17:09)
[2016-08-20] MEDS: PIPERACIL-TAZO 4.5 GM PREMIX 100 ML IV SCH ×4 (01:29→21:55)
[2016-08-20] MEDS ORDERED: PHARMACY ORDERED LAB ONE (01:45)
[2016-08-20] MEDS: VANCOMYCIN 1,000 MG/NS 250 ML IV SCH ×2 (02:00)
[2016-08-20 08:00] VITALS: BP 110/53; PULSE 84; RESP 18; TEMP 99.8; O2SAT 98
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
[2016-08-20] MEDS: VANCOMYCIN INJ 1,500 MG in SODIUM CHLORID 0.9% 500 ML INJ 500 ML IV SCH ×2 (09:55→17:09)
[2016-08-20 12:00] VITALS: BP 128/78; PULSE 89; RESP 18; TEMP 99.6; O2SAT 89
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
[2016-08-20 16:00] VITALS: BP 103/62; PULSE 89; RESP 16; TEMP 99.4; O2SAT 98
[2016-08-20] MEDS: ENOXAPARIN SODIUM 40 MG/0.4 ML SYRINGE SQ SCH (17:08)
[2016-08-20 20:00] VITALS: BP 113/68; PULSE 99; RESP 17; TEMP 98.4; O2SAT 100
[2016-08-20] MEDS: QUEtiapine FUMARATE 25 MG TAB PO SCH (21:55)
[2016-08-21] VITALS: BP 100/55; PULSE 88; RESP 17; TEMP 96.8; O2SAT 98
[2016-08-21] MEDS: PIPERACIL-TAZO 4.5 GM PREMIX 100 ML IV SCH ×3 (02:43→14:00)
[2016-08-21] MEDS: VANCOMYCIN INJ 1,500 MG in SODIUM CHLORID 0.9% 500 ML INJ 500 ML IV SCH ×2 (02:43→12:12)
[2016-08-21] MEDS: SODIUM CHLOR 0.9% 1000 ML INJ 1,000 ML IV SCH ×2 (02:45→14:45)
[2016-08-21 06:09] LABS: AUTOMATED NEUTROPHIL # 4.4 TH/MM3 (1.8-7.7); BASOPHIL # 0.1 TH/MM3 (0-0.2); BASOPHIL % 0.7 % (0.0-2.0); EOSINOPHIL # 0.5 TH/MM3 (0-0.4); EOSINOPHIL % 6.3 % (0.0-4.0); HEMATOCRIT 26.2 % (39.0-51.0); HEMO FLAGS DIFF FINAL; LYMPH % 28.6 % (9.0-44.0); LYMPHOCYTE # 2.4 TH/MM3 (1.0-4.8); MEAN CELL VOLUME 82.5 FL (80.0-100.0); MEAN CORPUSCULAR HEMOGLOBIN 27.2 PG (27.0-34.0); MONO % 11.6 % (0.0-8.0); NEUT % 52.8 % (16.0-70.0); PLATELET COUNT 675 TH/MM3 (150-450); RED BLOOD COUNT 3.18 MIL/MM3 (4.50-5.90); RED CELL DISTRIBUTION WIDTH 15.7 % (11.6-17.2); WHITE BLOOD COUNT 8.3 TH/MM3 (4.0-11.0)
[2016-08-21 06:34] LABS: POTASSIUM 3.6 MEQ/L (3.5-5.1)
[2016-08-21 08:00] VITALS: BP 99/63; PULSE 78; RESP 16; TEMP 98.5; O2SAT 99
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
[2016-08-21] MEDS ORDERED: VANC1000P IV (09:13)
[2016-08-21] MEDS ORDERED: PIPE4INJ IV (09:13)
[2016-08-21] MEDS ORDERED: PHARMACY ORDERED LAB ONE (09:45)
[2016-08-21 12:00] VITALS: BP 129/73; PULSE 101; RESP 15; TEMP 96; O2SAT 98
[2016-08-21] MEDS: ENOXAPARIN SODIUM 40 MG/0.4 ML SYRINGE SQ SCH (15:48)
[2016-08-21 16:00] VITALS: BP 112/59; PULSE 80; RESP 16; TEMP 96.3; O2SAT 98
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
[2016-08-21 20:00] VITALS: BP 97/53; PULSE 118; RESP 19; TEMP 98.4; O2SAT 100
[2016-08-21] MEDS: QUEtiapine FUMARATE 25 MG TAB PO SCH (23:08)
[2016-08-22] VITALS (7 sets, daily range): BP systolic 94–151; BP diastolic 51–78; PULSE 58–116; RESP 18–19; TEMP 97.9–101.1; O2SAT 95–100
[2016-08-22] MEDS: SODIUM CHLOR 0.9% 1000 ML INJ 1,000 ML IV SCH ×3 (00:45→21:27)
--- NOTE | 2016-08-22 11:57 | PD.WCN.NOT ---
Wound Consult Description: Sacrum Recommendation: 1. Right Trochanter and Sacrum- Wound VAC change Thursday's and Thursday's (Vac settings @125mmHg low continuous suction) 2. Right unstageable Heel- Cleanse with NS only, apply Santyl daily to dry gauze with light packing. 3. Left trochanter- NS wet to dry dressing with light packing daily cover with dry cover. *WAVE bed *Bilateral blue heel raiser boots *Nutrition consult Neg Pressure Wound Therapy Wound Location Wound Location: Sacrum Wound Description Length: 6.6cm Width: 5.6cm Depth: 3.5cm Underminincm Wound bed appearance: Wound bed presents with ~50% muscle visualized with palpated bone and ~50% granulation tissue with minimal serosang drainage noted. Periwound appearance: Unremarkable Settings Suction: 125 mmHg, Continuous Intensity: Low Other Information: Bridged, Windowpaned Foam type: Black Number of pieces: 1 Additonal Information Patient seen on for wound VAC change. Patient positioned to his left side with assistance from BEBETO Fleming. Wound VAC dressing removed from sacrum , wound cleansed with wound cleanser and gauze. Periwound was skin prepped with Cavilon spray and window paned with VAC drape. 1 piece black foam cut in a cinnamon roll fashion and placed into wound bed and bridged up to right hip and secured with drape. Wound Location Wound Location: Right trochanter Wound Description Length: 3.4cm Width: 2.8cm Depth: 1.8cm Underminin.1cm Wound bed appearance: Wound on right trochanter is ~30% muscle and 70% fascia with scant serosang drainage. Wound was cleansed with wound cleanser and gauze. Periwound was skin prepped with Cavilon skin spray and window paned using VAC drape to protect skin. Adaptic placed over fascia in wound bed prior to placing 1 piece black foam cut in a cinnamon roll fashion and coiled into wound bed. Wound was bridged to right hip. 1 piece black foam used for wound bed and bridging in all. Sensitrac pad placed over right hip onto black foam after bridging both wounds to one trac pad. Wound VAC turned on with settings @ 125mmHg low continuous suction working properly without leaks. Patient was cleansed after having BM also noted with a colostomy, and repositioned prior to P.T. coming into room to work with patient. Next wound VAC change Thursday08/26/16. Periwound appearance: Unremarkable Settings Suction: 125 mmHg, Continuous Intensity: Low Other Information: Bridged, Mushroomed Foam type: Black Number of pieces: 1 Additonal Information 2 pieces black foam used in wound VAC dressing change today. Deana Marroquin [facility] Aug 22, 2016 11:57
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
[2016-08-22] MEDS: ENOXAPARIN SODIUM 40 MG/0.4 ML SYRINGE SQ SCH (16:09)
[2016-08-22] MEDS: QUEtiapine FUMARATE 25 MG TAB PO SCH (21:28)
[2016-08-22] MEDS: ACETAMINOPHEN 325 MG TAB PO PRN (23:53)
[2016-08-23 04:00] VITALS: BP 104/69; PULSE 64; RESP 19; TEMP 96.4; O2SAT 100
[2016-08-23] MEDS: SODIUM CHLOR 0.9% 1000 ML INJ 1,000 ML IV SCH ×2 (05:17→17:06)
[2016-08-23 08:00] VITALS: BP 113/64; PULSE 80; RESP 18; TEMP 97.2; O2SAT 100
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
[2016-08-23 12:00] VITALS: BP 101/62; PULSE 90; RESP 16; TEMP 99.3; O2SAT 98
[2016-08-23 16:00] VITALS: BP 111/60; PULSE 108; RESP 17; TEMP 100.1; O2SAT 99
[2016-08-23] MEDS: ENOXAPARIN SODIUM 40 MG/0.4 ML SYRINGE SQ SCH (17:05)
[2016-08-23] MEDS: ACETAMINOPHEN 325 MG TAB PO PRN (17:09)
[2016-08-23 20:00] VITALS: BP 115/66; PULSE 103; RESP 18; TEMP 99.7; O2SAT 98
[2016-08-23] MEDS: QUEtiapine FUMARATE 25 MG TAB PO SCH (20:22)
[2016-08-24] VITALS: BP 126/68; PULSE 95; RESP 16; TEMP 98.7; O2SAT 99
[2016-08-24] MEDS: SODIUM CHLOR 0.9% 1000 ML INJ 1,000 ML IV SCH ×3 (00:14→22:33)
[2016-08-24 08:00] VITALS: BP 113/60; PULSE 84; RESP 17; TEMP 98.7; O2SAT 98
[2016-08-24 12:00] VITALS: BP 122/64; PULSE 73; RESP 16; TEMP 99.7; O2SAT 98
[2016-08-24] MEDS: ONDANSETRON HCL 4 MG/2 ML VIAL IV PUSH PRN ×2 (12:05→22:32)
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
[2016-08-24 14:21] LABS: TRANSFERRIN IRON PROFILE 88 MG/DL (200-360)
[2016-08-24 14:47] LABS: FERRITIN 402 NG/ML (26-388)
[2016-08-24 16:00] VITALS: BP 123/80; PULSE 93; RESP 18; TEMP 98.4; O2SAT 97
[2016-08-24] MEDS: ENOXAPARIN SODIUM 40 MG/0.4 ML SYRINGE SQ SCH (16:00)
[2016-08-24 17:59] VITALS: BP 116/70; PULSE 83; RESP 18; TEMP 97.1; O2SAT 99
[2016-08-24] MEDS ORDERED: SIMETHICONE 125 MG CHEWABLE TAB PO PRN (19:15)
[2016-08-24 20:00] VITALS: BP 118/74; PULSE 92; RESP 20; TEMP 97.8; O2SAT 98
[2016-08-24] MEDS: QUEtiapine FUMARATE 25 MG TAB PO SCH (22:32)
[2016-08-25] VITALS: BP 112/68; PULSE 70; RESP 18; TEMP 98.2; O2SAT 97
[2016-08-25 01:34] LABS: C. DIFF EPI 027 PRESUMPTIVE NEGATIVE (NEGATIVE); C. DIFF TOXIN PCR NEGATIVE (NEGATIVE)
[2016-08-25] MEDS: SODIUM CHLOR 0.9% 1000 ML INJ 1,000 ML IV SCH ×2 (06:39→16:47)
[2016-08-25 08:00] VITALS: BP 106/55; PULSE 108; RESP 16; TEMP 98; O2SAT 99
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
[2016-08-25 12:00] VITALS: BP 92/51; PULSE 88; RESP 16; TEMP 97.1; O2SAT 92
--- NOTE | 2016-08-25 14:17 | HHI.PYPN ---
Subjective Remarks Patient was seen today for psychiatric reevaluation, he was found in his bed, in a good spirit, described his mood as happy, denies depressive symptoms, he denies anhedonia, denies hopelessness and helplessness, patient is future oriented, he was able to share his immediate and long-term plans, he wants to go to his brother house, he denies suicidal or homicidal ideation, he denies visual and auditory hallucinations. Patient is oriented 3, patient deficits, no fluctuation of consciousness, no gross cognitive impairment are present. As per one-to-one sitter observations, patient has been doing much better today, very talkative, has not had any episode of aggressive behavior, agitation or hostility. Review of Systems Other No somatic complaints Objective Alert: Yes [place]: Person, Place, Date, Situation Mood: Calm Affect: Appropriate Memory Intact: Immediate, Recent Hallucinations: Other (patient denies) Delusions: No Delusion Type: Other (not elicited) Suicidal: Ideation (no SI) Homicidal: Ideation (no HI) Insight/Judgment Good Labs Test 08/25/16 00:30 Stool C. difficile Toxin (PCR) NEGATIVE Stl C. difficile Toxin PRESUMPTIVE Epiderm 027 NEGATIVE Vitals/IOs Vital Signs Date Time Temp Pulse Resp B/P Pulse Ox O2 Delivery O2 Flow Rate FiO2 08/25/16 12:00 97.1 88 16 92/51 92 08/25/16 04:00 Room Air Intake and Output 08/24/16 08/24/16 08/25/16 08:00 16:00 00:00 Intake Total 240 ml 2835 ml 3446 ml Output Total 1000 ml 2300 ml 700 ml Balance -760 ml 535 ml 2746 ml Assessment & Plan Problem List: (1) Adjustment disorder Assessment & Plan: At the moment of this evaluation the patient does not present any significant, acute or concerning objective or subjective symptomatology of depression, anxiety, prince or psychosis. Suicidal and homicidal ideation, denies visual and auditory hallucinations. Recent suicidal statement to the police and Dr. Dubose in the medical floor, symptomatology of depression displayed during the hospitalization, seems to be related with adjustment disorder secondary to the stress of the hospitalization and underlying medical illness. He does not meet criteria for psychiatric admission at this moment. Continue Seroquel 50 mg at bedtime. Nelson act will be lifted. ICD Code: F43.20 Assessment & Plan Estimated LOS: days Justification for Cont. Inpt. Patient does not meet criteria for involuntary psychiatric admission at this moment Problem Qualifiers (1) Adjustment disorder: Qualified Code: F43.25 - Adjustment disorder with mixed disturbance of emotions and conduct Jose Caballero MD Aug 25, 2016 14:17
[2016-08-25 15:27] LABS: AUTOMATED NEUTROPHIL # 9.3 TH/MM3 (1.8-7.7); BASOPHIL # 0.1 TH/MM3 (0-0.2); BASOPHIL % 0.5 % (0.0-2.0); EOSINOPHIL # 0.3 TH/MM3 (0-0.4); EOSINOPHIL % 2.6 % (0.0-4.0); HEMATOCRIT 27.3 % (39.0-51.0); HEMO FLAGS DIFF FINAL; LYMPH % 16.1 % (9.0-44.0); MEAN CELL VOLUME 81.7 FL (80.0-100.0); MEAN CORPUSCULAR HEMOGLOBIN 26.2 PG (27.0-34.0); MEAN CORPUSCULAR HGB CONC 32.1 % (32.0-36.0); MONO % 6.9 % (0.0-8.0); NEUT % 73.9 % (16.0-70.0); PLATELET COUNT 763 TH/MM3 (150-450); RED BLOOD COUNT 3.34 MIL/MM3 (4.50-5.90); RED CELL DISTRIBUTION WIDTH 16.3 % (11.6-17.2); WHITE BLOOD COUNT 12.5 TH/MM3 (4.0-11.0)
[2016-08-25 15:49] LABS: BICARBONATE 29.7 MEQ/L (21.0-32.0); POTASSIUM 3.5 MEQ/L (3.5-5.1)
[2016-08-25 16:00] VITALS: BP 108/54; PULSE 110; RESP 16; TEMP 97.8; O2SAT 98
[2016-08-25] MEDS: ENOXAPARIN SODIUM 40 MG/0.4 ML SYRINGE SQ SCH (16:46)
[2016-08-25 20:00] VITALS: BP 121/98; PULSE 88; RESP 16; TEMP 99.9; O2SAT 98
[2016-08-25] MEDS: QUEtiapine FUMARATE 25 MG TAB PO SCH (21:08)
[2016-08-26] VITALS: BP_SYST 51; PULSE 109; TEMP 97.8
[2016-08-26] MEDS: SODIUM CHLOR 0.9% 1000 ML INJ 1,000 ML IV SCH ×2 (05:32→14:45)
[2016-08-26 08:00] VITALS: BP 119/80; PULSE 87; RESP 18; TEMP 98.9; O2SAT 99
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
[2016-08-26 12:00] VITALS: BP 135/88; PULSE 91; RESP 18; TEMP 97.3; O2SAT 99
--- NOTE | 2016-08-26 12:43 | PD.WCN.NOT ---
Wound Consult Description: Sacrum Right trochanter Recommendation: 1. Right Trochanter and Sacrum- Wound VAC change Thursday's and Thursday's (Vac settings @125mmHg low continuous suction) 2. Right unstageable Heel- Cleanse with NS only, apply Santyl daily to dry gauze with light packing. 3. Left trochanter- NS wet to dry dressing with light packing daily cover with dry cover. *WAVE bed *Bilateral blue heel raiser boots *Nutrition consult Additional Information: Patient seen today on for wound VAC change with BEBETO Fleming. Neg Pressure Wound Therapy Wound Location Wound Location: Sacrum Wound Description Length: 5cm Width: 5.4cm Depth: 2.9cm Underminin.4cm from 9-4 o'clock Wound bed appearance: Wound bed presents with ~40% muscle visualized with palpated bone and ~60% granulation tissue with minimal serosang drainage noted without odor. Periwound appearance: Unremarkable Settings Suction: 125 mmHg, Continuous Intensity: Low Other Information: Bridged, Windowpaned Foam type: Black Number of pieces: 1 Additonal Information Sacrum wound cleansed with wound cleanser and gauze. Periwound skin prepped using Cavilon spray and window paned and bridged with VAC drape. 1 piece black foam inserted into wound bed in a coiled fashion and brought up to right lateral thigh securing with VAC drape. Stoma paste used in creases to obtain and maintain seal. Wound Location Wound Location: Right trochanter Wound Description Length: 2.7cm Width: 2.8cm Depth: 1.4cm Underminin.3cm circumferential deepest @6 o'clock Wound bed appearance: Wound on right trochanter is ~40% granulation tissue and 60% fascia with scant serosang drainage. Periwound appearance: Unremarkable Settings Suction: 125 mmHg, Continuous Intensity: Low Other Information: Bridged, Windowpaned Foam type: Black Number of pieces: 1 Additonal Information Wound was cleansed with wound cleanser and gauze, no odor noted. Periwound was skin prepped with Cavilon skin spray and window paned using VAC drape to protect skin. Oil emulsion placed over fascia in wound bed prior to placing 1 piece black foam cut in a cinnamon roll fashion and coiled into wound bed. Wound was bridged to right thigh. 1 piece black foam used for wound bed and bridging in all. Sensitrac pad placed over right thigh merging both wounds to one trac pad. Wound VAC turned on with settings @ 125mmHg low continuous suction working properly without leaks. Next wound VAC change Thursday08/29/16. Patient tolerated wound VAC dressing change well. Deana Marroquin [facility] Aug 26, 2016 12:43
[2016-08-26] MEDS: ENOXAPARIN SODIUM 40 MG/0.4 ML SYRINGE SQ SCH (14:45)
[2016-08-26 16:00] VITALS: BP 114/71; PULSE 82; RESP 17; TEMP 100.8; O2SAT 100
[2016-08-26 20:20] VITALS: BP 104/58; PULSE 89; RESP 17; TEMP 99.9; O2SAT 98
[2016-08-26] MEDS: QUEtiapine FUMARATE 25 MG TAB PO SCH (20:58)
[2016-08-27 00:15] VITALS: BP 106/55; PULSE 90; RESP 18; TEMP 97.8; O2SAT 96
[2016-08-27] MEDS: ONDANSETRON HCL 4 MG/2 ML VIAL IV PUSH PRN (04:27)
[2016-08-27] MEDS: ACETAMINOPHEN 325 MG TAB PO PRN ×3 (04:27→22:37)
[2016-08-27] MEDS: SODIUM CHLOR 0.9% 1000 ML INJ 1,000 ML IV SCH (04:28)
[2016-08-27 05:41] LABS: HEMATOCRIT 28.8 % (39.0-51.0); MEAN CELL VOLUME 82.3 FL (80.0-100.0); MEAN CORPUSCULAR HEMOGLOBIN 26.6 PG (27.0-34.0); MEAN CORPUSCULAR HGB CONC 32.3 % (32.0-36.0); PLATELET COUNT 582 TH/MM3 (150-450); RED CELL DISTRIBUTION WIDTH 16.1 % (11.6-17.2); REVIEW FLAG FINAL; WHITE BLOOD COUNT 13.7 TH/MM3 (4.0-11.0)
[2016-08-27 05:59] LABS: BICARBONATE 26.6 MEQ/L (21.0-32.0); POTASSIUM 3.3 MEQ/L (3.5-5.1)
[2016-08-27 08:00] VITALS: BP 92/47; PULSE 123; RESP 19; TEMP 104; O2SAT 95
[2016-08-27 08:30] VITALS: BP 90/50; PULSE 120; RESP 16; TEMP 101.5; O2SAT 96
[2016-08-27] MEDS ORDERED: POTASSIUM CHLORIDE 20 MEQ CONTROLLED RELEASE TAB PO ONE (09:45)
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
[2016-08-27 10:08] LABS: BACTERIA, URINE RARE /hpf; BLOOD, URINE NEG (NEG); COMMENT (UR) CULTURE INDICATED; CULTURE IF INDICATED CULTURE INDICATED; GLUCOSE,URINE NEG (NEG); HYALINE CAST, URINE 1 /lpf (RARE); KETONE, URINE NEG (NEG); MUCUS URINE FEW /lpf (OCC); NITRITE,URINE NEG (NEG); PH, URINE 5.5 (5.0-8.5); URINE COLOR YELLOW (YELLW/STRAW)
[2016-08-27 12:00] VITALS: BP 98/55; PULSE 99; RESP 18; TEMP 97.8; O2SAT 100
[2016-08-27] MEDS: ENOXAPARIN SODIUM 40 MG/0.4 ML SYRINGE SQ SCH (15:15)
[2016-08-27] MEDS: SULFAMETHOXAZOLE-TRIMETHOPRIM DS 800-160 MG TAB PO SCH ×2 (15:15→22:36)
[2016-08-27 16:00] VITALS: BP 116/62; PULSE 76; RESP 17; TEMP 97.7; O2SAT 99
[2016-08-27 20:32] VITALS: BP 100/52; PULSE 92; RESP 18; TEMP 100.6; O2SAT 97
[2016-08-27] MEDS: QUEtiapine FUMARATE 25 MG TAB PO SCH (22:36)
[2016-08-27] MEDS: COLLAGENASE OINT 30 GM TUBE TOPICAL PRN (22:52)
[2016-08-28] VITALS (7 sets, daily range): BP systolic 92–131; BP diastolic 51–60; PULSE 69–100; RESP 16–18; TEMP 96.2–101.2; O2SAT 95–100
[2016-08-28 06:35] LABS: HEMATOCRIT 25.9 % (39.0-51.0); MEAN CORPUSCULAR HEMOGLOBIN 27.2 PG (27.0-34.0); MEAN CORPUSCULAR HGB CONC 33.2 % (32.0-36.0); PLATELET COUNT 482 TH/MM3 (150-450); RED BLOOD COUNT 3.16 MIL/MM3 (4.50-5.90); RED CELL DISTRIBUTION WIDTH 16.7 % (11.6-17.2); REVIEW FLAG FINAL; WHITE BLOOD COUNT 8.5 TH/MM3 (4.0-11.0)
[2016-08-28 06:50] LABS: BICARBONATE 29.2 MEQ/L (21.0-32.0); POTASSIUM 3.2 MEQ/L (3.5-5.1)
[2016-08-28] MEDS ORDERED: POTASSIUM CHLORIDE 10 MEQ CONTROLLED RELEASE TAB PO ONE (08:30)
[2016-08-28] MEDS: SULFAMETHOXAZOLE-TRIMETHOPRIM DS 800-160 MG TAB PO SCH ×2 (12:01→21:47)
[2016-08-28] MEDS: COLLAGENASE OINT 30 GM TUBE TOPICAL PRN (12:02)
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
[2016-08-28] MEDS: ENOXAPARIN SODIUM 40 MG/0.4 ML SYRINGE SQ SCH (15:40)
[2016-08-28] MEDS: ACETAMINOPHEN 325 MG TAB PO PRN (15:40)
[2016-08-28] MEDS: QUEtiapine FUMARATE 25 MG TAB PO SCH (21:47)
[2016-08-29 00:30] VITALS: BP 116/53; PULSE 102; RESP 18; TEMP 98.5; O2SAT 95
[2016-08-29 06:11] LABS: HEMATOCRIT 26.4 % (39.0-51.0); MEAN CELL VOLUME 81.8 FL (80.0-100.0); MEAN CORPUSCULAR HEMOGLOBIN 26.7 PG (27.0-34.0); MEAN CORPUSCULAR HGB CONC 32.6 % (32.0-36.0); PLATELET COUNT 538 TH/MM3 (150-450); RED BLOOD COUNT 3.23 MIL/MM3 (4.50-5.90); RED CELL DISTRIBUTION WIDTH 16.3 % (11.6-17.2); REVIEW FLAG FINAL
[2016-08-29 06:36] LABS: BICARBONATE 27.6 MEQ/L (21.0-32.0); POTASSIUM 4.1 MEQ/L (3.5-5.1)
[2016-08-29 08:00] VITALS: BP 115/75; PULSE 98; RESP 14; TEMP 98.9; O2SAT 98
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
[2016-08-29] MEDS: SULFAMETHOXAZOLE-TRIMETHOPRIM DS 800-160 MG TAB PO SCH ×2 (11:05→22:03)
[2016-08-29 12:00] VITALS: BP 111/61; PULSE 93; RESP 15; TEMP 99.2; O2SAT 99
--- NOTE | 2016-08-29 14:45 | PD.WCN.NOT ---
Wound Consult Description: Sacrum Right trochanter Recommendation: 1. Right Trochanter and Sacrum- Wound VAC change Thursday's and Thursday's (Vac settings @125mmHg low continuous suction) 2. Right unstageable Heel- Cleanse with NS only, apply Santyl daily to dry gauze with light packing. 3. Left trochanter- NS wet to dry dressing with light packing daily cover with dry cover. *WAVE bed *Bilateral blue heel raiser boots *Nutrition consult Neg Pressure Wound Therapy Wound Location Wound Location: Sacrum Wound Description Length: 5cm Width: 6.4cm Depth: 3.1cm Underminin.2cm from 9-3 with deepest being at 3o'clock Wound bed appearance: Wound bed presents with ~40% muscle visualized with palpated bone and ~60% granulation tissue with minimal serosang drainage noted without odor. Periwound appearance: Other (partial thickness skinloss noted at 2 o'clock) Settings Suction: 125 mmHg, Continuous Intensity: Low Other Information: Bridged, Windowpaned Foam type: Black Number of pieces: 1 Additonal Information Sacrum wound cleansed with wound cleanser and gauze. Periwound skin prepped using Cavilon spray and window paned and bridged with VAC drape. 1 piece black foam inserted into wound bed in a coiled fashion and brought up to right lateral thigh securing with VAC drape. Stoma paste used in creases to obtain and maintain seal. Wound Location Wound Location: Right trochanter Wound Description Length: 2.5cm Width: 2.5cm Depth: 1cm Underminincm circumferentially deepest @3 o'clock Wound bed appearance: Wound on right trochanter is ~40% granulation tissue and 60% fascia with scant serosang drainage. Periwound appearance: Unremarkable Settings Suction: 125 mmHg, Continuous Intensity: Low Other Information: Bridged, Windowpaned Foam type: Black Number of pieces: 1 Additonal Information Wound was cleansed with wound cleanser and gauze, no odor noted. Periwound was skin prepped with Cavilon skin spray and window paned using VAC drape to protect skin. Oil emulsion placed over fascia in wound bed prior to placing 1 piece black foam cut in a cinnamon roll fashion and coiled into wound bed. Wound was bridged to right thigh. 1 piece black foam used for wound bed and bridging in all. Sensitrac pad placed over right thigh merging both wounds to one trac pad. Wound VAC turned on with settings @ 125mmHg low continuous suction working properly without leaks. Next wound VAC change Thursday09/02/16. Patient tolerated wound VAC dressing change well. Deana Marroquin [facility] Aug 29, 2016 14:44
[2016-08-29 16:00] VITALS: BP 107/63; PULSE 92; RESP 15; TEMP 99.2; O2SAT 99
[2016-08-29 20:00] VITALS: BP 107/60; PULSE 84; RESP 18; TEMP 98.6; O2SAT 97
[2016-08-29] MEDS: QUEtiapine FUMARATE 25 MG TAB PO SCH (22:03)
[2016-08-30] VITALS: BP 95/52; PULSE 88; RESP 18; TEMP 98.5; O2SAT 96
[2016-08-30 08:00] VITALS: BP 86/54; PULSE 90; RESP 15; TEMP 98; O2SAT 100
[2016-08-30] MEDS: SULFAMETHOXAZOLE-TRIMETHOPRIM DS 800-160 MG TAB PO SCH ×2 (08:46→20:19)
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
[2016-08-30 12:00] VITALS: BP 113/59; PULSE 104; RESP 12; TEMP 99.2; O2SAT 98
[2016-08-30 16:00] VITALS: BP 108/52; PULSE 102; RESP 13; TEMP 99.2; O2SAT 99
[2016-08-30] MEDS: ENOXAPARIN SODIUM 40 MG/0.4 ML SYRINGE SQ SCH (16:20)
[2016-08-30 20:00] VITALS: BP 122/68; PULSE 113; RESP 18; TEMP 99.7; O2SAT 98
[2016-08-30] MEDS: QUEtiapine FUMARATE 25 MG TAB PO SCH (20:19)
[2016-08-31] VITALS: BP 103/56; PULSE 85; RESP 18; TEMP 98.5; O2SAT 98
[2016-08-31 08:00] VITALS: BP 113/61; PULSE 104; RESP 17; TEMP 98.7; O2SAT 98
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
[2016-08-31] MEDS: SULFAMETHOXAZOLE-TRIMETHOPRIM DS 800-160 MG TAB PO SCH ×2 (11:53→22:16)
[2016-08-31 12:00] VITALS: BP 106/61; PULSE 104; RESP 22; TEMP 97.3; O2SAT 99
[2016-08-31 16:00] VITALS: BP 113/71; PULSE 107; RESP 13; TEMP 100.5; O2SAT 100
[2016-08-31] MEDS: ENOXAPARIN SODIUM 40 MG/0.4 ML SYRINGE SQ SCH (16:05)
[2016-08-31 20:00] VITALS: BP 113/59; PULSE 115; RESP 17; TEMP 100.4; O2SAT 100
[2016-08-31] MEDS: QUEtiapine FUMARATE 25 MG TAB PO SCH (22:16)
[2016-09-01] VITALS: BP 113/59; PULSE 100; RESP 17; TEMP 98.7; O2SAT 100
[2016-09-01 08:00] VITALS: BP 106/59; PULSE 72; RESP 17; TEMP 97.8; O2SAT 97
[2016-09-01] MEDS: SULFAMETHOXAZOLE-TRIMETHOPRIM DS 800-160 MG TAB PO SCH ×2 (09:18→22:06)
[2016-09-01] MEDS: COLLAGENASE OINT 30 GM TUBE TOPICAL PRN (09:31)
--- NOTE | 2016-09-01 09:57 | RADRPT ---
EXAM DATE/TIME: 09/01/2016 08:16 [facility] COMPARISON: CHEST SINGLE AP, August 20, 2016, 14:56. INDICATIONS : Fever. MEDICAL HISTORY : Hypertension. SURGICAL HISTORY : Colostomy. Fusion, thoracic. Neurogenic bladder and bowel. ENCOUNTER: Subsequent ACUITY: 1 day PAIN SCORE: 0/10 LOCATION: Bilateral chest FINDINGS: Transpedicular fixation is seen in the thoracic spine. Heart is enlarged. Lungs are clear. Pulmona ry vascularity is normal. CONCLUSION: Stable chest. Ramesh Harvey MD FACR on September 01, 2016 at 9:04 Board Certified Radiologist. This report was verified electronically.
[2016-09-01 12:00] VITALS: BP 116/62; PULSE 99; RESP 18; TEMP 98.6; O2SAT 98
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
[2016-09-01 14:37] LABS: BLOOD, URINE NEG (NEG); GLUCOSE,URINE NEG (NEG); KETONE, URINE NEG (NEG); NITRITE,URINE NEG (NEG); URINE COLOR YELLOW (YELLW/STRAW)
[2016-09-01 14:38] LABS: COMMENT (UR) CATH-CULT NOT IND; CULTURE IF INDICATED CATH CULTURE NOT IND
[2016-09-01 16:00] VITALS: BP 134/82; PULSE 88; RESP 18; TEMP 99.8; O2SAT 99
[2016-09-01] MEDS: ENOXAPARIN SODIUM 40 MG/0.4 ML SYRINGE SQ SCH (16:38)
[2016-09-01] MEDS: LEVOFLOXACIN 750 MG TAB PO SCH (16:38)
[2016-09-01 17:17] LABS: HEMATOCRIT 29.8 % (39.0-51.0); MEAN CELL VOLUME 82.4 FL (80.0-100.0); MEAN CORPUSCULAR HEMOGLOBIN 26.3 PG (27.0-34.0); MEAN CORPUSCULAR HGB CONC 31.9 % (32.0-36.0); PLATELET COUNT 715 TH/MM3 (150-450); RED BLOOD COUNT 3.61 MIL/MM3 (4.50-5.90); REVIEW FLAG FINAL; WHITE BLOOD COUNT 12.6 TH/MM3 (4.0-11.0)
[2016-09-01 17:56] LABS: BICARBONATE 31.1 MEQ/L (21.0-32.0); POTASSIUM 3.9 MEQ/L (3.5-5.1)
[2016-09-01 20:00] VITALS: BP 119/61; PULSE 116; RESP 17; TEMP 100.7; O2SAT 99
[2016-09-01] MEDS: QUEtiapine FUMARATE 25 MG TAB PO SCH (22:06)
[2016-09-02] VITALS: BP 113/64; PULSE 102; RESP 17; TEMP 99.6; O2SAT 99
[2016-09-02 06:30] LABS: HEMATOCRIT 28.4 % (39.0-51.0); MEAN CORPUSCULAR HEMOGLOBIN 26.9 PG (27.0-34.0); MEAN CORPUSCULAR HGB CONC 32.9 % (32.0-36.0); PLATELET COUNT 727 TH/MM3 (150-450); RED BLOOD COUNT 3.47 MIL/MM3 (4.50-5.90); RED CELL DISTRIBUTION WIDTH 16.2 % (11.6-17.2); REVIEW FLAG FINAL; WHITE BLOOD COUNT 10.9 TH/MM3 (4.0-11.0)
[2016-09-02 06:56] LABS: BICARBONATE 28.1 MEQ/L (21.0-32.0); POTASSIUM 3.8 MEQ/L (3.5-5.1)
[2016-09-02 08:00] VITALS: BP 111/64; PULSE 94; RESP 16; TEMP 98.2; O2SAT 95
[2016-09-02] MEDS: SULFAMETHOXAZOLE-TRIMETHOPRIM DS 800-160 MG TAB PO SCH ×2 (09:05→22:13)
[2016-09-02 12:00] VITALS: BP 110/60; PULSE 100; RESP 18; TEMP 99.1; O2SAT 99
[2016-09-02] MEDS: LEVOFLOXACIN 750 MG TAB PO SCH (13:58)
[2016-09-02 16:00] VITALS: BP 107/58; PULSE 107; RESP 17; TEMP 99.8; O2SAT 98
[2016-09-02] MEDS: ENOXAPARIN SODIUM 40 MG/0.4 ML SYRINGE SQ SCH (16:34)
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
[2016-09-02 20:00] VITALS: BP 120/69; PULSE 119; RESP 20; TEMP 99.5; O2SAT 98
[2016-09-02] MEDS: QUEtiapine FUMARATE 25 MG TAB PO SCH (22:13)
[2016-09-03] VITALS: BP 122/58; PULSE 100; RESP 20; TEMP 99.7; O2SAT 96
[2016-09-03 08:00] VITALS: BP 124/64; PULSE 123; RESP 18; TEMP 98; O2SAT 98
[2016-09-03] MEDS: SULFAMETHOXAZOLE-TRIMETHOPRIM DS 800-160 MG TAB PO SCH (09:09)
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
--- NOTE | 2016-09-03 11:30 | PD.WCN.NOT ---
Wound Consult Description: Called MAEGAN Samuels regarding wound VAC change yesterday, she states that the machine has been alarming and is unable to obtain a seal. Communicated with: MAEGAN Samuels Recommendation: 1. Right Trochanter and Sacrum- Wound VAC change Thursday's and Thursday's (Vac settings @125mmHg low continuous suction) 2. Right unstageable Heel- Cleanse with NS only, apply Santyl daily to dry gauze with light packing. 3. Left trochanter- NS wet to dry dressing with light packing daily cover with dry cover. *WAVE bed *Bilateral blue heel raiser boots *Nutrition consult Additional Information: Entered room with BEBETO Fleming and MAEGAN Samuels to evaluate wound VAC for malfunctioning, seal was unable to be obtained by floor RN. Neg Pressure Wound Therapy Wound Location Wound Location: Sacrum Wound Description Length: 4.6cm Width: 6.5cm Depth: 2.1cm Underminin o'clock - 3 o'clock with deepest being 5cm @3 o'clock Wound bed appearance: Wound bed presents with ~40% muscle visualized with palpated bone and ~60% granulation tissue with minimal serosang drainage noted without odor. Periwound appearance: Unremarkable Settings Suction: 125 mmHg, Continuous Intensity: Low Other Information: Bridged, Windowpaned Foam type: Black Number of pieces: 1 Additonal Information Dressing removed from right hip and right buttock to reveal black granufoam touching prior intact skin that is now bright red and bumpy from wound VAC suctioning. All black granufoam was removed from sacral wound bed and cleansed with wound cleanser and measured. VAC drape was placed over intact skin after spraying with Cavilon skin prep to protect intact skin from foam suction. Large black granufoam was cut in a cinnamon roll fashion and placed into wound bed in sacrum and bridged up to right anterior thigh where trac pad was placed and connected to 1 piece granufoam coming from right hip wound. Machine turned on and working properly without leaks settings ~125mmHg low continuous suction. Wound Location Wound Location: Right trochanter Wound Description Length: 3cm Width: 2.9cm Depth: 1cm Undermining: Circumferentially with deepest of 4cm @3 o'clock Wound bed appearance: Wound on right trochanter is ~40% granulation tissue and 60% fascia with scant serosang drainage. Periwound appearance: Other (partial thickness skinloss noted from last night when wound vac was changed and bridged without protecting intact periwound skin) Settings Suction: 125 mmHg, Continuous Intensity: Low Other Information: Bridged, Windowpaned Foam type: Black Number of pieces: 1 Additonal Information Dressing removed from periwound to reveal black granufoam touching prior intact skin that is now bright red and bumpy from wound VAC suctioning. All black granufoam was removed from wound bed and cleansed with wound cleanser and measured. VAC drape was placed over intact skin after spraying with Cavilon skin prep to protect intact skin from foam suction. Large black granufoam was cut in a cinnamon roll fashion and 1 piece of black foam was placed into wound bed, secured with VAC drape, and bridged up to right anterior thigh where trac pad was attached. Machine turned on and working properly without leaks settings @125mmHg low continuous suction. Patient tolerated wound VAC dressing change well. Deana Marroquin [facility] Sep 03, 2016 11:30
[2016-09-03 12:00] VITALS: BP 114/71; PULSE 87; RESP 17; TEMP 99.5; O2SAT 98
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
[2016-09-03] MEDS: LEVOFLOXACIN 750 MG TAB PO SCH (15:49)
[2016-09-03] MEDS: ENOXAPARIN SODIUM 40 MG/0.4 ML SYRINGE SQ SCH (15:49)
[2016-09-03 15:58] LABS: AUTOMATED NEUTROPHIL # 9.5 TH/MM3 (1.8-7.7); BASOPHIL # 0.1 TH/MM3 (0-0.2); BASOPHIL % 0.5 % (0.0-2.0); EOSINOPHIL # 0.3 TH/MM3 (0-0.4); EOSINOPHIL % 2.3 % (0.0-4.0); LYMPH % 15.4 % (9.0-44.0); MEAN CELL VOLUME 81.8 FL (80.0-100.0); MEAN CORPUSCULAR HGB CONC 31.8 % (32.0-36.0); MONO % 10.2 % (0.0-8.0); NEUT % 71.6 % (16.0-70.0); PLATELET COUNT 848 TH/MM3 (150-450); RED BLOOD COUNT 3.79 MIL/MM3 (4.50-5.90); RED CELL DISTRIBUTION WIDTH 16.7 % (11.6-17.2); WHITE BLOOD COUNT 13.2 TH/MM3 (4.0-11.0)
[2016-09-03 16:00] VITALS: BP 104/56; PULSE 100; RESP 18; TEMP 98.9; O2SAT 98
[2016-09-03 16:05] LABS: HEMO FLAGS AUTO DIFF
[2016-09-03 16:20] LABS: INDIRECT BILIRUBIN 0.1 MG/DL (0.0-0.8); TOTAL BILIRUBIN ADULT 0.2 MG/DL (0.2-1.0)
[2016-09-03 16:32] LABS: SCAN/DIFF AUTO DIFF CONFIRMED
[2016-09-03 20:00] VITALS: BP 118/57; PULSE 125; RESP 20; TEMP 100.6; O2SAT 98
[2016-09-03] MEDS: QUEtiapine FUMARATE 25 MG TAB PO SCH (20:41)
[2016-09-04] VITALS: BP 117/57; PULSE 117; RESP 20; TEMP 101.2; O2SAT 95
[2016-09-04] MEDS: ACETAMINOPHEN 325 MG TAB PO PRN (00:33)
[2016-09-04 08:00] VITALS: BP 103/55; PULSE 95; RESP 17; TEMP 97.2; O2SAT 99
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
--- NOTE | 2016-09-04 10:18 | HHI.FF ---
Face to Face Verification Diagnosis: (1) Paraplegia (2) Wound of sacral region Home Health Nursing Order: Medical education Signs/symptoms of disease process Wound care and dressing changes I have seen patient Eyad Braga on 09/04/16. My clinical findings support the need for the requested home health care services because: Ltd mobility - disease progression Limited ability to care for self Need for psychosocial assistance Infection w/ risk of complications I certify that my clinical findings support that this patient is homebound because: Unsafe to leave home unassisted [employer] orders. 1. Right Trochanter and Sacrum- Wound VAC change Thursday's and Thursday's (Vac settings @125mmHg low continuous suction). Wean off wound vac as indicated. 2. Right unstageable Heel- Cleanse with NS only, apply Santyl daily to dry gauze with light packing. 3. Left trochanter- NS wet to dry dressing with light packing daily cover with dry cover. Bilateral blue heel raiser Destin Doll MD Sep 04, 2016 10:18
[2016-09-04 12:00] VITALS: BP 116/58; PULSE 91; RESP 16; TEMP 99.2; O2SAT 98
[2016-09-04] MEDS: LEVOFLOXACIN 750 MG TAB PO SCH (13:51)
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
[2016-09-04 16:00] VITALS: BP 106/63; PULSE 99; RESP 17; TEMP 98.8; O2SAT 98
[2016-09-04] MEDS: ENOXAPARIN SODIUM 40 MG/0.4 ML SYRINGE SQ SCH (17:10)
[2016-09-04 20:00] VITALS: BP 124/59; PULSE 119; RESP 20; TEMP 99.8; O2SAT 96
[2016-09-04] MEDS: QUEtiapine FUMARATE 25 MG TAB PO SCH (22:48)
[2016-09-05] VITALS: BP 106/65; PULSE 115; RESP 20; TEMP 99.7; O2SAT 98
[2016-09-05 08:00] VITALS: BP 111/68; PULSE 92; RESP 16; TEMP 97.2; O2SAT 97
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
[2016-09-05 11:25] LABS: AUTOMATED NEUTROPHIL # 6.1 TH/MM3 (1.8-7.7); BASOPHIL # 0.1 TH/MM3 (0-0.2); BASOPHIL % 0.7 % (0.0-2.0); EOSINOPHIL # 0.4 TH/MM3 (0-0.4); EOSINOPHIL % 4.1 % (0.0-4.0); HEMATOCRIT 29.9 % (39.0-51.0); LYMPH % 19.8 % (9.0-44.0); LYMPHOCYTE # 1.9 TH/MM3 (1.0-4.8); MEAN CELL VOLUME 80.6 FL (80.0-100.0); MEAN CORPUSCULAR HEMOGLOBIN 26.4 PG (27.0-34.0); MEAN CORPUSCULAR HGB CONC 32.8 % (32.0-36.0); MONO % 9.9 % (0.0-8.0); NEUT % 65.5 % (16.0-70.0); PLATELET COUNT 901 TH/MM3 (150-450); RED BLOOD COUNT 3.72 MIL/MM3 (4.50-5.90); RED CELL DISTRIBUTION WIDTH 16.5 % (11.6-17.2); WHITE BLOOD COUNT 9.4 TH/MM3 (4.0-11.0)
[2016-09-05 11:29] LABS: HEMO FLAGS AUTO DIFF
[2016-09-05 12:00] VITALS: BP 118/70; PULSE 113; RESP 17; TEMP 98.5; O2SAT 98
[2016-09-05 12:26] LABS: PLATELET ESTIMATE SMEAR HIGH (NORMAL); PLATELET MORPHOLOGY NORMAL (NORMAL); SCAN/DIFF AUTO DIFF CONFIRMED
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
[2016-09-05 16:00] VITALS: BP 104/57; PULSE 100; RESP 16; TEMP 99.6; O2SAT 97
[2016-09-05] MEDS: ENOXAPARIN SODIUM 40 MG/0.4 ML SYRINGE SQ SCH (16:14)
[2016-09-05 20:00] VITALS: BP 120/72; PULSE 107; RESP 20; TEMP 99.6; O2SAT 98
[2016-09-05] MEDS: QUEtiapine FUMARATE 25 MG TAB PO SCH (20:44)
[2016-09-06] VITALS: BP 112/67; PULSE 101; RESP 20; TEMP 99.2; O2SAT 97
[2016-09-06 08:00] VITALS: BP 109/61; PULSE 95; RESP 17; TEMP 99.6; O2SAT 98
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
[2016-09-06 12:00] VITALS: BP 135/79; PULSE 92; RESP 17; TEMP 98.8; O2SAT 99
[2016-09-06 16:00] VITALS: BP 130/77; PULSE 100; RESP 18; TEMP 99; O2SAT 100
[2016-09-06 20:00] VITALS: BP 113/61; PULSE 111; RESP 20; TEMP 99.8; O2SAT 99
[2016-09-06] MEDS: ENOXAPARIN SODIUM 40 MG/0.4 ML SYRINGE SQ SCH (20:27)
[2016-09-06] MEDS: QUEtiapine FUMARATE 25 MG TAB PO SCH (20:27)
[2016-09-07] VITALS: BP 117/58; PULSE 99; RESP 20; TEMP 98.6; O2SAT 98
[2016-09-07 08:00] VITALS: BP 110/62; PULSE 97; RESP 16; TEMP 96.6; O2SAT 98
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
[2016-09-07 12:00] VITALS: BP 117/71; PULSE 100; RESP 18; TEMP 97.4; O2SAT 99
[2016-09-07 16:00] VITALS: BP 119/65; PULSE 98; RESP 17; TEMP 97.9; O2SAT 100
[2016-09-07] MEDS: ENOXAPARIN SODIUM 40 MG/0.4 ML SYRINGE SQ SCH (17:40)
[2016-09-07] MEDS: QUEtiapine FUMARATE 25 MG TAB PO SCH (19:53)
[2016-09-07 20:00] VITALS: BP 115/59; PULSE 115; RESP 20; TEMP 100.5; O2SAT 98
[2016-09-08] VITALS: BP 120/66; PULSE 93; RESP 18; TEMP 100.5; O2SAT 98
[2016-09-08 08:00] VITALS: BP 110/62; PULSE 98; RESP 16; TEMP 96.9; O2SAT 98
--- NOTE | 2016-09-08 11:47 | HHI.PR ---
Subjective Remarks The patient was resting comfortably in bed. I talked with his family member over the phone. The patient's that his depression was better. He was willing to go to a senior living facility whenever he would get into one. He says he sometimes has abdominal pain when he moves his legs. Discussed with nursing. Objective Vitals Vital Signs Date Time Temp Pulse Resp B/P Pulse Ox O2 Delivery O2 Flow Rate FiO2 09/08/16 08:00 96.9 98 16 110/62 98 09/08/16 00:00 100.5 93 18 120/66 98 09/07/16 20:00 100.5 115 20 115/59 98 09/07/16 16:00 97.9 98 17 119/65 100 09/07/16 12:00 97.4 100 18 117/71 99 I/O 09/07/16 09/07/16 09/07/16 09/08/16 09/08/16 09/08/16 07:00 15:00 23:00 07:00 15:00 23:00 Intake Total 480 ml 960 ml 480 ml 480 ml Output Total 15 ml 1450 ml 725 ml 1150 ml Balance 465 ml -490 ml -245 ml -670 ml Intake Oral 480 ml 960 ml 480 ml 480 ml Output Urine Total 1200 ml 500 ml 1000 ml Stool Total 250 ml 150 ml 150 ml Drainage Total 15 ml 75 ml 0 ml Result Diagram: 09/05/16 1100 Imaging Last Impressions Chest X-Ray 09/01/16 0000 Signed Impressions: Service Date/Time: Thursday, September 01, 2016 08:16 - CONCLUSION: Stable chest. Ramesh Harvey MD FACR Objective Remarks GENERAL: Paraplegic male in no apparent distress. SKIN: Wound vac in place over sacral area. CARDIOVASCULAR: Normal rate and regular rhythm without murmurs, gallops, or rubs. RESPIRATORY: Good respiratory efforts. Breath sounds equal and clear to auscultation bilaterally. GASTROINTESTINAL: Abdomen soft, non-tender, non-distended. Normal active bowel sounds MUSCULOSKELETAL: Extremities without cyanosis, or edema. NEURO: Alert & Oriented. Normal speech. Paraplegic PSYCH: Flattened affect. Procedures none Medications and IVs Current Medications Medications (Trade) Dose Ordered Sig/Joseph Route Start Time Stop Time Status Last Admin (Tylenol) 650 mg Q4H PRN PO 08/17/16 15:45 09/04/16 00:33 (Zofran Inj) 4 mg Q8H PRN IV PUSH 08/17/16 15:45 08/27/16 04:27 (SEROquel) 50 mg HS PO 08/17/16 21:00 09/07/16 19:53 (Lovenox Inj) 40 mg Q24H SQ 08/17/16 16:00 09/07/16 17:40 (Phazyme Chew) 125 mg Q8HR PRN PO 08/24/16 19:15 08/24/16 23:08 (Santyl Oint) 1 applic UNSCH PRN TOPICAL 08/24/16 23:15 09/01/16 09:31 Date of Removal: Aug 27, 2016 Line: PICC Side: Right A/P Problem List: (1) Depression ICD Code: F32.9 Status: Chronic (2) Suicidal ideation ICD Code: R45.851 Status: Resolved (3) Low grade fever ICD Code: R50.9 Status: Acute (4) Paraplegia ICD Code: G82.20 Status: Chronic Assessment and Plan Sepsis. Infectious disease following. Status post antibiotics with Levaquin and Bactrim. Antibiotics discontinued. Continues to have low grade temps. - Monitor temps per ID. Chronic sacral wound/ Chronic right trochanter wound/ Chronic left trochanter wound/ Chronic right heel wound Wound vac in place. - Continue wound care. - Monitor for any signs of infection. - He is now agreeable to go to a senior living facility. manager utility assistance appreciated. - follow up infectious disease recs. Depression With suicidal ideation. Psychiatry following. He states his mood is better. - Nelson Act lifted. Chronic paraplegia/ Chronic Neurogenic bladder Unable to care for self. - PT and OT following. - Continue self-catheterization. Anemia Chronic. - follow CBC as needed. Thrombocytosis Likely reactive. - monitor. DVT prophylaxis: Lovenox Discharge Planning The pt will need SNF placement Problem Qualifiers (1) Depression: Qualified Code: F32.9 - Depression, unspecified depression type Zen Meza DO Sep 08, 2016 11:47
[2016-09-08 12:00] VITALS: BP 110/61; PULSE 105; RESP 16; TEMP 99.3; O2SAT 98
[2016-09-08 14:50] LABS: AUTOMATED NEUTROPHIL # 9.6 TH/MM3 (1.8-7.7); BASOPHIL # 0.1 TH/MM3 (0-0.2); EOSINOPHIL # 0.4 TH/MM3 (0-0.4); EOSINOPHIL % 3.1 % (0.0-4.0); HEMATOCRIT 30.3 % (39.0-51.0); HEMO FLAGS DIFF FINAL; LYMPH % 16.5 % (9.0-44.0); LYMPHOCYTE # 2.3 TH/MM3 (1.0-4.8); MEAN CELL VOLUME 81.4 FL (80.0-100.0); NEUT % 70.4 % (16.0-70.0); PLATELET COUNT 814 TH/MM3 (150-450); RED BLOOD COUNT 3.73 MIL/MM3 (4.50-5.90); RED CELL DISTRIBUTION WIDTH 16.3 % (11.6-17.2); WHITE BLOOD COUNT 13.7 TH/MM3 (4.0-11.0)
[2016-09-08] MEDS: ENOXAPARIN SODIUM 40 MG/0.4 ML SYRINGE SQ SCH (14:59)
[2016-09-08 16:00] VITALS: BP 116/63; PULSE 109; RESP 16; TEMP 100.5; O2SAT 98
[2016-09-08 20:00] VITALS: BP 107/62; PULSE 127; RESP 20; TEMP 101.4; O2SAT 98
[2016-09-08] MEDS: QUEtiapine FUMARATE 25 MG TAB PO SCH (21:27)
[2016-09-09] VITALS: BP 114/61; PULSE 124; RESP 19; TEMP 100.7; O2SAT 97
[2016-09-09 04:00] VITALS: BP 115/69; PULSE 109; RESP 20; TEMP 98.4; O2SAT 98
[2016-09-09 08:00] VITALS: BP 105/65; PULSE 96; RESP 16; TEMP 97.2; O2SAT 98
[2016-09-09 12:00] VITALS: BP 123/67; PULSE 97; RESP 16; TEMP 97.8; O2SAT 99
--- NOTE | 2016-09-09 13:20 | PD.WCN.NOT ---
Wound Consult Description: Wound VAC change to sacrum and right trochanter Communicated with: MAEGAN Jackson Recommendation: 1. Right Trochanter and Sacrum- Wound VAC change Thursday's and Thursday's (Vac settings @125mmHg low continuous suction) 2. Right unstageable Heel- Cleanse with NS only, apply Santyl daily to dry gauze with light packing. 3. Left trochanter- NS wet to dry dressing with light packing daily cover with dry cover. *WAVE bed continue to reposition every 2 hours and PRN for comfort *Bilateral blue heel raiser boots while in bed Additional Information: Patient seen on for wound VAC change Neg Pressure Wound Therapy Wound Location Wound Location: Sacrum Wound Description Length: ~5cm Width: ~7cm Depth: ~3cm Underminin o'clock - 3 o'clock with deepest being ~5cm @2 o'clock Wound bed appearance: Wound bed presents with ~30% muscle visualized with palpated bone and ~70% granulation tissue with minimal serosang drainage noted without odor. Periwound appearance: Unremarkable Settings Suction: 125 mmHg, Continuous Intensity: Low Other Information: Bridged, Windowpaned Foam type: Black Number of pieces: 1 Additonal Information Wound cleansed with wound cleanser and gauze. Periwound skin prepped and covered with drape prior to bridging trac pad to right hip using 1 piece coiled black granufoam . Wound Location Wound Location: Right trochanter Wound Description Length: 2.8cm Width: 2.6cm Depth: 1cm Undermining: Circumferentially with deepest of 4cm @2 o'clock Wound bed appearance: Wound on right trochanter is ~50% granulation tissue and ~50% fascia with scant serosang drainage. Periwound appearance: Unremarkable Settings Suction: 125 mmHg, Continuous Intensity: Low Other Information: Bridged, Windowpaned Foam type: Black Number of pieces: 1 Additonal Information Wound cleansed with wound cleanser and gauze. Periwound skin prepped and covered with drape prior to bridging to right hip. 1 piece oil emulsion gauze placed over fascia in wound bed before inserting 1 piece coiled black granufoam. Deana Marroquin [facility] Sep 09, 2016 13:20
--- NOTE | 2016-09-09 15:36 | HHI.PR ---
Subjective Remarks The patient said that he wanted the room temperature to be warmer. He said that his wound VAC dressing was changed. He had no acute complaints. Objective Vitals Vital Signs Date Time Temp Pulse Resp B/P Pulse Ox O2 Delivery O2 Flow Rate FiO2 09/09/16 12:00 97.8 97 16 123/67 99 09/09/16 08:00 97.2 96 16 105/65 98 09/09/16 04:00 98.4 109 20 115/69 98 09/09/16 00:00 100.7 124 19 114/61 97 09/08/16 20:00 101.4 127 20 107/62 98 09/08/16 16:00 100.5 109 16 116/63 98 I/O 09/08/16 09/08/16 09/08/16 09/09/16 09/09/16 09/09/16 07:00 15:00 23:00 07:00 15:00 23:00 Intake Total 480 ml 340 ml 240 ml 650 ml 240 ml Output Total 1150 ml 800 ml 25 ml 675 ml 700 ml Balance -670 ml -460 ml 215 ml -25 ml -460 ml Intake Oral 480 ml 340 ml 240 ml 650 ml 240 ml Output Urine Total 1000 ml 700 ml 650 ml 700 ml Stool Total 150 ml Drainage Total 0 ml 100 ml 25 ml 25 ml # Bowel Movements 1 1 Result Diagram: 09/08/16 1435 Imaging Last Impressions Chest X-Ray 09/01/16 0000 Signed Impressions: Service Date/Time: Thursday, September 01, 2016 08:16 - CONCLUSION: Stable chest. Ramesh Harvey MD FACR Objective Remarks GENERAL: Paraplegic male in no apparent distress. SKIN: Wound vac in place over sacral area. CARDIOVASCULAR: Normal rate and regular rhythm without murmurs, gallops, or rubs. RESPIRATORY: Good respiratory efforts. Breath sounds equal and clear to auscultation bilaterally. GASTROINTESTINAL: Abdomen soft, non-tender, non-distended. Normal active bowel sounds MUSCULOSKELETAL: Extremities without cyanosis, or edema. NEURO: Alert & Oriented. Normal speech. Paraplegic PSYCH: Flattened affect. Procedures none Medications and IVs Current Medications Medications (Trade) Dose Ordered Sig/Joseph Route Start Time Stop Time Status Last Admin (Tylenol) 650 mg Q4H PRN PO 08/17/16 15:45 09/04/16 00:33 (Zofran Inj) 4 mg Q8H PRN IV PUSH 08/17/16 15:45 08/27/16 04:27 (SEROquel) 50 mg HS PO 08/17/16 21:00 09/08/16 21:27 (Lovenox Inj) 40 mg Q24H SQ 08/17/16 16:00 09/08/16 14:59 (Phazyme Chew) 125 mg Q8HR PRN PO 08/24/16 19:15 08/24/16 23:08 (Santyl Oint) 1 applic UNSCH PRN TOPICAL 08/24/16 23:15 09/01/16 09:31 Date of Removal: Aug 27, 2016 Line: PICC Side: Right A/P Problem List: (1) Depression ICD Code: F32.9 Status: Chronic (2) Suicidal ideation ICD Code: R45.851 Status: Resolved (3) Low grade fever ICD Code: R50.9 Status: Acute (4) Paraplegia ICD Code: G82.20 Status: Chronic Assessment and Plan Sepsis. Infectious disease following. Status post antibiotics with Levaquin and Bactrim. Antibiotics discontinued. Continues to spike fevers. Discussed with ID. - Monitor temps. - check a UA, CXR. - follow up with ID. Chronic sacral wound/ Chronic right trochanter wound/ Chronic left trochanter wound/ Chronic right heel wound Wound vac in place. Dressings changed 09/09. - Continue wound care. - He is now agreeable to go to a [facility] facility. human resources operations manager assistance appreciated. - follow up infectious disease recs. Depression With suicidal ideation. Psychiatry following. He states his mood is better. - Nelson Act lifted. Chronic paraplegia/ Chronic Neurogenic bladder Unable to care for self. - PT and OT following. - Continue self-catheterization. Repeat UA. Anemia Chronic. - follow CBC as needed. Thrombocytosis Likely reactive. - monitor. DVT prophylaxis: Lovenox Discharge Planning The pt will need SNF placement Problem Qualifiers (1) Depression: Qualified Code: F32.9 - Depression, unspecified depression type Zen Meza DO Sep 09, 2016 15:36
[2016-09-09 16:00] VITALS: BP 114/66; PULSE 103; RESP 16; TEMP 100.4; O2SAT 99
--- NOTE | 2016-09-09 17:06 | RADRPT ---
EXAM DATE/TIME: 09/09/2016 15:44 [place] COMPARISON: CHEST SINGLE AP, September 01, 2016, 8:16. INDICATIONS : Short of breath, evaluate pneumonia MEDICAL HISTORY : Hypertension. SURGICAL HISTORY : Colostomy. Fusion, thoracic. neurogenic bladder and bowel ENCOUNTER: Subsequent ACUITY: 1 week PAIN SCORE: Non-responsive. LOCATION: Bilateral chest FINDINGS: The heart is mildly enlarged. The lungs are clear. There is fusion hardware over the upper thoracic spine. There is an old healed fracture of the right clavicle. CONCLUSION: 1. No focal or segmental pneumonia identified. 2. Mild cardiomegaly. John Harvey MD on September 09, 2016 at 17:04 Board Certified Radiologist. This report was verified electronically.
[2016-09-09] MEDS: ENOXAPARIN SODIUM 40 MG/0.4 ML SYRINGE SQ SCH (18:08)
[2016-09-09 20:00] VITALS: BP 92/58; PULSE 117; RESP 22; TEMP 99.6; O2SAT 95
[2016-09-09] MEDS: QUEtiapine FUMARATE 25 MG TAB PO SCH (21:21)
[2016-09-09 22:30] LABS: BACTERIA, URINE MANY /hpf; BLOOD, URINE NEG (NEG); GLUCOSE,URINE NEG (NEG); KETONE, URINE NEG (NEG); MUCUS URINE FEW /lpf (OCC); PH, URINE 5.5 (5.0-8.5); SQUAMOUS EPITHELIAL CELL URINE <1 /hpf (0-5); URINE COLOR YELLOW (YELLW/STRAW)
[2016-09-09 22:31] LABS: NITRITE,URINE POS (NEG)
[2016-09-09 22:32] LABS: COMMENT (UR) CATH-CULTURE IND; CULTURE IF INDICATED CATH CULTURE IND
[2016-09-10] VITALS: BP 104/52; PULSE 110; RESP 19; TEMP 100.4; O2SAT 96
[2016-09-10 04:00] VITALS: BP 108/60; PULSE 100; RESP 20; TEMP 100.2; O2SAT 99
[2016-09-10 05:43] LABS: HEMATOCRIT 29.6 % (39.0-51.0); MEAN CORPUSCULAR HEMOGLOBIN 26.1 PG (27.0-34.0); MEAN CORPUSCULAR HGB CONC 32.6 % (32.0-36.0); PLATELET COUNT 790 TH/MM3 (150-450); RED BLOOD COUNT 3.69 MIL/MM3 (4.50-5.90); REVIEW FLAG FINAL; WHITE BLOOD COUNT 11.1 TH/MM3 (4.0-11.0)
[2016-09-10 06:07] LABS: BICARBONATE 28.7 MEQ/L (21.0-32.0); MAGNESIUM 1.6 MG/DL (1.5-2.5); POTASSIUM 3.5 MEQ/L (3.5-5.1)
[2016-09-10 08:00] VITALS: BP 114/63; PULSE 102; RESP 16; TEMP 99.9; O2SAT 99
[2016-09-10 12:00] VITALS: BP 99/56; PULSE 112; RESP 16; TEMP 98.4; O2SAT 96
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
[2016-09-10 16:00] VITALS: BP 119/66; PULSE 122; RESP 16; TEMP 102; O2SAT 99
--- NOTE | 2016-09-10 16:06 | HHI.PR ---
Subjective Remarks The patient was resting comfortably. He said he had a bout of coughing last night which resolved. He said he had no acute complaints. He did say he talked with the pillowcase folder about potential nursing facilities. He wanted to know eventually when he went home if he would have home health care. Discussed with nursing. Objective Vitals Vital Signs Date Time Temp Pulse Resp B/P Pulse Ox O2 Delivery O2 Flow Rate FiO2 09/10/16 12:00 98.4 112 16 99/56 96 09/10/16 08:00 99.9 102 16 114/63 99 09/10/16 04:00 100.2 100 20 108/60 99 09/10/16 00:00 100.4 110 19 104/52 96 09/09/16 20:00 99.6 117 22 92/58 95 09/09/16 16:00 100.4 103 16 114/66 99 I/O 09/09/16 09/09/16 09/09/16 09/10/16 09/10/16 09/10/16 07:00 15:00 23:00 07:00 15:00 23:00 Intake Total 650 ml 240 ml 240 ml 500 ml 340 ml Output Total 675 ml 1200 ml 950 ml 0 ml 1275 ml Balance -25 ml -960 ml -710 ml 500 ml -935 ml Intake Oral 650 ml 240 ml 240 ml 500 ml 340 ml IV Total 0 ml Output Urine Total 650 ml 700 ml 700 ml 0 ml 1150 ml Stool Total 250 ml Drainage Total 25 ml 500 ml 125 ml # Bowel Movements 1 1 Result Diagram: 09/10/16 0420 09/10/16 0420 Imaging Last Impressions Chest X-Ray 09/09/16 0000 Signed Impressions: Service Date/Time: Friday, September 09, 2016 15:44 - CONCLUSION: 1. No focal or segmental pneumonia identified. 2. Mild cardiomegaly. Jhon Harvey MD Objective Remarks GENERAL: Paraplegic male in no apparent distress. SKIN: Wound vac in place over sacral area. CARDIOVASCULAR: Normal rate and regular rhythm without murmurs, gallops, or rubs. RESPIRATORY: Good respiratory efforts. Breath sounds equal and clear to auscultation bilaterally. GASTROINTESTINAL: Abdomen soft, non-tender, non-distended. Normal active bowel sounds MUSCULOSKELETAL: Extremities without cyanosis, or edema. NEURO: Alert & Oriented. Normal speech. Paraplegic PSYCH: Slightly flattened affect. Procedures none Medications and IVs Current Medications Medications (Trade) Dose Ordered Sig/Joseph Route Start Time Stop Time Status Last Admin (Tylenol) 650 mg Q4H PRN PO 08/17/16 15:45 09/04/16 00:33 (Zofran Inj) 4 mg Q8H PRN IV PUSH 08/17/16 15:45 08/27/16 04:27 (SEROquel) 50 mg HS PO 08/17/16 21:00 09/09/16 21:21 (Lovenox Inj) 40 mg Q24H SQ 08/17/16 16:00 09/09/16 18:08 (Phazyme Chew) 125 mg Q8HR PRN PO 08/24/16 19:15 08/24/16 23:08 (Santyl Oint) 1 applic UNSCH PRN TOPICAL 08/24/16 23:15 09/01/16 09:31 Date of Removal: Aug 27, 2016 Line: PICC Side: Right A/P Problem List: (1) Depression ICD Code: F32.9 Status: Chronic (2) Suicidal ideation ICD Code: R45.851 Status: Resolved (3) Low grade fever ICD Code: R50.9 Status: Acute (4) Paraplegia ICD Code: G82.20 Status: Chronic Assessment and Plan Sepsis/ UTI Infectious disease following. Status post antibiotics with Levaquin and Bactrim. Antibiotics discontinued. Continues to spike fevers. Discussed with ID. Chest x-ray unremarkable. Urine culture growing gram-negative rods. - Monitor temps. - follow urine culture. - start IV ceftriaxone. Chronic sacral wound/ Chronic right trochanter wound/ Chronic left trochanter wound/ Chronic right heel wound Wound vac in place. Dressings changed 09/09. - Continue wound care. - He is now agreeable to go to a senior living facility. manager sap assistance appreciated. - follow up infectious disease recs. Depression With suicidal ideation. Psychiatry following. He states his mood is better. - Nelson Act lifted. Chronic paraplegia/ Chronic Neurogenic bladder Unable to care for self. - PT and OT following. - Continue self-catheterization. - ceftriaxone for UTI. Anemia Chronic. - follow CBC as needed. Thrombocytosis Likely reactive. - monitor. DVT prophylaxis: Lovenox Discharge Planning The pt will need SNF placement Problem Qualifiers (1) Depression: Qualified Code: F32.9 - Depression, unspecified depression type Zen Meza DO Sep 10, 2016 16:06
[2016-09-10] MEDS ORDERED: POTASSIUM CHLORIDE 25 MEQ EFFERVESCENT TAB PO ONE (16:15)
[2016-09-10] MEDS: ENOXAPARIN SODIUM 40 MG/0.4 ML SYRINGE SQ SCH (16:56)
[2016-09-10] MEDS: cefTRIAXone INJ 1,000 MG in SODIUM CHLORIDE 0.9% INJ 100 ML IV SCH (16:58)
[2016-09-10] MEDS: ACETAMINOPHEN 325 MG TAB PO PRN ×2 (17:08→21:23)
[2016-09-10] MEDS: COLLAGENASE OINT 30 GM TUBE TOPICAL PRN (17:16)
[2016-09-10 20:00] VITALS: BP 117/65; PULSE 110; RESP 17; TEMP 100.5; O2SAT 100
[2016-09-10] MEDS: QUEtiapine FUMARATE 25 MG TAB PO SCH (21:23)
[2016-09-11] VITALS: BP 102/57; PULSE 116; RESP 17; TEMP 100.3; O2SAT 97
[2016-09-11 08:00] VITALS: BP 115/58; PULSE 104; RESP 19; TEMP 100.1; O2SAT 98
[2016-09-11] MEDS: ACETAMINOPHEN 325 MG TAB PO PRN ×2 (08:30→16:23)
[2016-09-11 12:00] VITALS: BP 111/63; PULSE 109; RESP 19; TEMP 99.1; O2SAT 97
--- NOTE | 2016-09-11 14:27 | HHI.PR ---
Subjective Remarks The pt wanted to make sure he would have PT when discharged to a facility. He said he doesn't have much care at home and that going home would be difficult. No acute complaints. Objective Vitals Vital Signs Date Time Temp Pulse Resp B/P Pulse Ox O2 Delivery O2 Flow Rate FiO2 09/11/16 12:00 99.1 109 19 111/63 97 09/11/16 08:00 100.1 104 19 115/58 98 09/11/16 00:00 100.3 116 17 102/57 97 09/10/16 20:00 100.5 110 17 117/65 100 09/10/16 16:00 102.0 122 16 119/66 99 I/O 09/10/16 09/10/16 09/10/16 09/11/16 09/11/16 09/11/16 07:00 15:00 23:00 07:00 15:00 23:00 Intake Total 500 ml 340 ml 340 ml 480 ml Output Total 0 ml 1275 ml 1001 ml 450 ml Balance 500 ml -935 ml -661 ml 30 ml Intake Oral 500 ml 340 ml 240 ml 480 ml IV Total 0 ml 100 ml 0 ml Output Urine Total 0 ml 1150 ml 1000 ml 400 ml Stool Total 1 ml Drainage Total 125 ml 50 ml # Bowel Movements 1 Result Diagram: 09/10/16 0420 09/10/16 0420 Imaging Last Impressions Chest X-Ray 09/09/16 0000 Signed Impressions: Service Date/Time: Friday, September 09, 2016 15:44 - CONCLUSION: 1. No focal or segmental pneumonia identified. 2. Mild cardiomegaly. John Harvey MD Objective Remarks GENERAL: Paraplegic male in no apparent distress. SKIN: Wound vac in place over sacral area. CARDIOVASCULAR: Normal rate and regular rhythm without murmurs, gallops, or rubs. RESPIRATORY: Good respiratory efforts. Breath sounds equal and clear to auscultation bilaterally. GASTROINTESTINAL: Abdomen soft, non-tender, non-distended. Normal active bowel sounds MUSCULOSKELETAL: Extremities without cyanosis, or edema. NEURO: Alert & Oriented. Normal speech. Paraplegic PSYCH: Slightly flattened affect. Procedures none Medications and IVs Current Medications Medications (Trade) Dose Ordered Sig/Joseph Route Start Time Stop Time Status Last Admin (Tylenol) 650 mg Q4H PRN PO 08/17/16 15:45 7/13/17 08:30 (Zofran Inj) 4 mg Q8H PRN IV PUSH 08/17/16 15:45 08/27/16 04:27 (SEROquel) 50 mg HS PO 08/17/16 21:00 09/10/16 21:23 (Lovenox Inj) 40 mg Q24H SQ 08/17/16 16:00 09/10/16 16:56 (Phazyme Chew) 125 mg Q8HR PRN PO 08/24/16 19:15 08/24/16 23:08 Collagenase 1 applic 1 applic UNSCH PRN TOPICAL 08/24/16 23:15 09/10/16 17:16 (Rocephin Inj/NS Inj) 100 ml @ 200 mls/hr Q24H IV 09/10/16 16:00 09/10/16 16:58 Date of Removal: Aug 27, 2016 Line: PICC Side: Right A/P Problem List: (1) Depression ICD Code: F32.9 Status: Chronic (2) Suicidal ideation ICD Code: R45.851 Status: Resolved (3) Low grade fever ICD Code: R50.9 Status: Acute (4) Paraplegia ICD Code: G82.20 Status: Chronic Assessment and Plan Sepsis/ UTI Infectious disease following. Status post antibiotics with Levaquin and Bactrim. Antibiotics discontinued. Continues to spike fevers. Discussed with ID. Chest x-ray unremarkable. Urine culture growing E coli. - Monitor temps. - started IV ceftriaxone. Antibiotics per ID. Chronic sacral wound/ Chronic right trochanter wound/ Chronic left trochanter wound/ Chronic right heel wound Wound vac in place. Dressings changed 09/09. - Continue wound care. - He is now agreeable to go to a shelter facility. senior manager quality assurance assistance appreciated. - follow up infectious disease recs. Depression With suicidal ideation. Psychiatry following. He states his mood is better. - Nelson Act lifted. Chronic paraplegia/ Chronic Neurogenic bladder Unable to care for self. - PT and OT following. - Continue self-catheterization. - ceftriaxone for UTI. Anemia Chronic. - follow CBC as needed. Thrombocytosis Likely reactive. - monitor. DVT prophylaxis: Lovenox Discharge Planning The pt will need SNF placement Problem Qualifiers (1) Depression: Qualified Code: F32.9 - Depression, unspecified depression type Zen Meza DO Sep 11, 2016 14:27
[2016-09-11 16:00] VITALS: BP 99/58; PULSE 114; RESP 20; TEMP 100.5; O2SAT 97
[2016-09-11] MEDS: cefTRIAXone INJ 1,000 MG in SODIUM CHLORIDE 0.9% INJ 100 ML IV SCH (16:18)
[2016-09-11] MEDS: ENOXAPARIN SODIUM 40 MG/0.4 ML SYRINGE SQ SCH (16:19)
[2016-09-11 20:00] VITALS: BP 115/58; PULSE 118; RESP 20; TEMP 99.8; O2SAT 96
[2016-09-11] MEDS: QUEtiapine FUMARATE 25 MG TAB PO SCH (22:19)
[2016-09-12] VITALS: BP 109/61; PULSE 94; RESP 20; TEMP 100.2; O2SAT 98
[2016-09-12 04:00] VITALS: TEMP 100.1
[2016-09-12] MEDS: ACETAMINOPHEN 325 MG TAB PO PRN (06:24)
[2016-09-12 08:00] VITALS: BP 94/52; PULSE 100; RESP 19; TEMP 99.6; O2SAT 97
[2016-09-12] MEDS: NITROFURANTOIN MONOHYD MACROCR 100 MG CAP PO SCH ×2 (08:46→08:54)
[2016-09-12 10:15] VITALS: BP 117/65
[2016-09-12 12:00] VITALS: BP 132/77; PULSE 104; RESP 16; TEMP 99.1; O2SAT 100
--- NOTE | 2016-09-12 12:21 | HHI.PR ---
Subjective Remarks The patient was resting comfortably in bed. He was wondering if the facility he was given a go to would be able to take care of his ostomy. Otherwise no acute complaints. Tolerating a diet. Discussed with case management. Objective Vitals Vital Signs Date Time Temp Pulse Resp B/P Pulse Ox O2 Delivery O2 Flow Rate FiO2 09/12/16 10:15 117/65 09/12/16 08:00 99.6 100 19 94/52 97 09/12/16 04:00 100.1 09/12/16 00:00 100.2 94 20 109/61 98 09/11/16 20:00 99.8 118 20 115/58 96 09/11/16 16:00 100.5 114 20 99/58 97 I/O 09/11/16 09/11/16 09/11/16 09/12/16 09/12/16 09/12/16 06:59 14:59 22:59 06:59 14:59 22:59 Intake Total 480 ml 450 ml 480 ml 480 ml Output Total 450 ml 837 ml 300 ml 1025 ml Balance 30 ml -387 ml 180 ml -545 ml Intake Oral 480 ml 450 ml 480 ml 480 ml IV Total 0 ml Output Urine Total 400 ml 825 ml 300 ml 900 ml Stool Total 2 ml 75 ml Drainage Total 50 ml 10 ml 50 ml # Bowel Movements 1 Result Diagram: 09/10/16 0420 09/10/16 0420 Imaging Last Impressions Chest X-Ray 09/09/16 0000 Signed Impressions: Service Date/Time: Friday, September 09, 2016 15:44 - CONCLUSION: 1. No focal or segmental pneumonia identified. 2. Mild cardiomegaly. John Harvey MD Objective Remarks GENERAL: Paraplegic male in no apparent distress. SKIN: Wound vac in place over sacral area. CARDIOVASCULAR: Normal rate and regular rhythm without murmurs, gallops, or rubs. RESPIRATORY: Good respiratory efforts. Breath sounds equal and clear to auscultation bilaterally. GASTROINTESTINAL: Abdomen soft, non-tender, non-distended. Normal active bowel sounds MUSCULOSKELETAL: Extremities without cyanosis, or edema. NEURO: Alert & Oriented. Normal speech. Paraplegic PSYCH: Slightly flattened affect. Procedures none Medications and IVs Current Medications Medications (Trade) Dose Ordered Sig/Joseph Route Start Time Stop Time Status Last Admin (Tylenol) 650 mg Q4H PRN PO 08/17/16 15:45 09/12/16 06:24 (Zofran Inj) 4 mg Q8H PRN IV PUSH 08/17/16 15:45 08/27/16 04:27 (SEROquel) 50 mg HS PO 08/17/16 21:00 09/11/16 22:19 (Lovenox Inj) 40 mg Q24H SQ 08/17/16 16:00 09/11/16 16:19 (Phazyme Chew) 125 mg Q8HR PRN PO 08/24/16 19:15 08/24/16 23:08 (Santyl Oint) 1 applic UNSCH PRN TOPICAL 08/24/16 23:15 09/10/16 17:16 (Macrobid) 100 mg BIDPC PO 09/11/16 19:00 09/12/16 08:46 Date of Removal: Aug 27, 2016 Line: PICC Side: Right A/P Problem List: (1) Depression ICD Code: F32.9 Status: Chronic (2) Suicidal ideation ICD Code: R45.851 Status: Resolved (3) Low grade fever ICD Code: R50.9 Status: Acute (4) Paraplegia ICD Code: G82.20 Status: Chronic Assessment and Plan Sepsis/ UTI Infectious disease following. Status post antibiotics with Levaquin and Bactrim. Antibiotics discontinued. Continues to spike fevers. Discussed with ID. Chest x-ray unremarkable. Urine culture growing E coli. - Monitor temps. - started IV ceftriaxone. Antibiotics switched to Macrobid per ID. Chronic sacral wound/ Chronic right trochanter wound/ Chronic left trochanter wound/ Chronic right heel wound Wound vac in place. Dressings changed 09/09. - Continue wound care. - He is now agreeable to go to a senior care facility. 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 Depression With suicidal ideation. Psychiatry following. He states his mood is better. - Nelson Act lifted. Chronic paraplegia/ Chronic Neurogenic bladder Unable to care for self. - PT and OT following. - Continue self-catheterization. - Macrobid for UTI. Anemia Chronic. - follow CBC as needed. Thrombocytosis Likely reactive. - monitor. DVT prophylaxis: Lovenox Discharge Planning The pt will need SNF placement Problem Qualifiers (1) Depression: Qualified Code: F32.9 - Depression, unspecified depression type Sayess,Jose. DO Sep 12, 2016 12:20
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
[2016-09-12] MEDS ORDERED: NITR100C4 PO (16:08)
[2016-09-12] MEDS ORDERED: MACR100C2 PO (16:09)
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
== END 2016-09-12 16:38 | DRG 871 ==
LOC: NEPE 18:52 → NEDA 08-17 15:41 → NEPGCP 08-17 17:10 → NEPFCDU 08-17 18:53 → OBSVTOIN 08-19 07:30 → N07A 08-19 14:16 → UNDODISIN 08-22 15:33
PROVIDERS: ADMIT Hospitalist; ATTEND Hospitalist
DX: A41.9 Sepsis, unspecified organism (principal); L89.154 Pressure ulcer of sacral region, stage 4; G82.20 Paraplegia, unspecified; L89.319 Pressure ulcer of right buttock, unspecified stage; S24.101S Unspecified injury at T1 level of thoracic spinal cord, sequela; R45.851 Suicidal ideations; N31.8 Other neuromuscular dysfunction of bladder; N39.0 Urinary tract infection, site not specified; F43.25 Adjustment disorder with mixed disturbance of emotions and conduct; S24.102S Unspecified injury at T2-T6 level of thoracic spinal cord, sequela; B96.20 Unspecified Escherichia coli [E. coli] as the cause of diseases classified elsewhere; E87.6 Hypokalemia; D75.89 Other specified diseases of blood and blood-forming organs; D64.9 Anemia, unspecified; V49.9XXS Car occupant (driver) (passenger) injured in unspecified traffic accident, sequela; Z81.8 Family history of other mental and behavioral disorders; Z91.5 Personal history of self-harm; Z93.3 Colostomy status
CPT/HCPCS: 71010; 80048; 80053; 80076; 80202; 80307; 81001; 82607; 82728; 82746; 83540; 83550; 83605; 83735; 85025; 85027; 87040; 87071; 87077; 87086; 87186; 87205; 87493; 99285; G0378; G8987-GO; G8987-GP; G8988-GO; G8988-GP; J0696; J1650; J2405; J2543; J3370; J7030; J7040; J7050